=== PATIENT | female | born 1950 | race Caucasian/White ===

== ENCOUNTER 2024-02-25 09:53 | Outpatient (CLI) | payer MEDICARE, SELFPAY ==
[2024-02-25 11:58] LABS: Creatinine Urine 50.3 mg/dL
[2024-02-25 11:59] LABS: Albumin Level 3.7 g/dL (3.5-5.1); Anion Gap 3 mmol/L (4-12); Blood Urea Nitrogen 28 mg/dL (7-17); Calcium 9.4 mg/dL (8.4-10.2); Carbon Dioxide 30 mmol/L (22-30); Chloride 105 mmol/L (98-107); Cholesterol 212 mg/dL (0-200); Estimated Glomerular Filt Rate 35; Glucose 94 mg/dL (65-110); HDL Direct 53 mg/dL; Phosphorus 3.3 mg/dL (2.5-4.5); Potassium 4.6 mmol/L (3.4-5.0); Sodium 138 mmol/L (137-145); Triglycerides 103 mg/dL (<150); Uric Acid 7.5 mg/dL (2.5-7.5)
[2024-02-25 12:10] LABS: LDL Cholesterol Direct 111 mg/dL
[2024-02-25 12:14] LABS: Total Protein Urine Random 444 mg/dL; Ur Ttl Prot Creatinine Ratio 8.83 mg/mg (0-0.20)
[2024-02-25 12:28] LABS: Vitamin D 25 Hydroxy 25.2 ng/mL
[2024-02-25 14:01] LABS: Hemoglobin A1C 6.4 % (<5.7)
[2024-02-25 14:38] LABS: Basophils Absolute Auto 0.1 K/mm3 (0.0-0.1); Basophils Percent Auto 0.9 % (0.2-1.2); Eosinophils Absolute Auto 0.2 K/mm3 (0-0.3); Eosinophils Percent Auto 3.1 % (0-4.4); Hematocrit 36.5 % (37.0-47.0); Hemoglobin 11.7 g/dL (12.0-15.0); Immature Granulocyte Absolute 0.02 K/mm3 (0.00-0.031); Immature Granulocyte Percent A 0.3 % (0-0.5); Lymphocytes Absolute Auto 1.69 K/mm3 (0.9-3.2); Lymphocytes Percent Auto 22.8 % (18.3-44.2); Mean Corpuscular HGB Conc 32.1 g/dl (32-36); Mean Corpuscular Hemoglobin 28.7 pg (26-34); Mean Corpuscular Volume 89.5 fl (80-100); Mean Platelet Volume 10.9 fl (7.4-10.4); Monocytes Absolute Auto 0.6 K/mm3 (0.1-0.6); Monocytes Percent Auto 8.1 % (2.6-8.5); Neutrophils Absolute Auto 4.8 K/mm3 (1.3-6.7); Neutrophils Percent Auto 64.8 % (45.5-73.1); Platelet Count Result 275 k/mm3 (150-375); Red Blood Count 4.08 M/mm3 (4.2-5.4); Red Cell Distribution Width 13.1 % (11.5-14.5); White Blood Count 7.4 K/mm3 (4.5-10.0)
[2024-02-26 09:13] LABS: Parathyroid Intact 69.2 pg/mL (14.5-75.2)
[2024-02-26 12:12] LABS: Add Urine Microscopic? YES; Appearance Urine Clear (Clear); Bacteria Urine None Seen /hpf; Bilirubin Urine Negative (Negative); Blood Urine 2+ (Negative); Color Urine Yellow (Yellow); Glucose Urine UA Negative (Negative); Ketones Urine Negative (Negative); Leukocyte Esterase Ur Negative LEU/UL (Negative); Nitrate Urine Negative (Negative); Non Pathogenic Casts 0-2; Protein Urine 3+ mg/dL (Negative); RBC Urine 0-2 /hpf (0-2); Specific Grav Ur 1.011 (1.001-1.035); Squamous Epithelial Cell Urine None Seen /hpf (Few); Urobilinogen Urine 0.2 mg/dL (<2.0); WBC Urine 0-5 /hpf (0-3)
== END 2024-02-25 09:54 | disposition home or self-care (01) ==
PROVIDERS: PCP Internal Medicine
DX: I12.9 Hypertensive chronic kidney disease with stage 1 through stage 4 chronic kidney disease, or unspecified chronic kidney disease (principal); E11.22 Type 2 diabetes mellitus with diabetic chronic kidney disease; N18.30 Chronic kidney disease, stage 3 unspecified; E11.65 Type 2 diabetes mellitus with hyperglycemia; R60.9 Edema, unspecified; E55.9 Vitamin D deficiency, unspecified
CPT/HCPCS: 36415; 80061; 80069; 81001; 82306; 82570; 83036; 83970; 84156; 84550; 85025

== ENCOUNTER 2024-06-03 10:53 | Outpatient (CLI) | payer MEDICARE, SELFPAY ==
--- OUTSIDE RECORDS SUMMARY | 2024-06-03 11:58 | XMS_ITS | Encounter Summary ---
Author Organization [facility] Address [address] [place] [address] Care Team Providers Care Pool Cleaner Name Role Phone Humble Han MD Primary Care Provider [phone] Encounter Details Date Type Department Care Team (Latest Contact Info) Description 01/01/1999 [facility] Swelling of limb (Primary Dx) Social History Tobacco Use Types Packs/Day Years Used Date Smoking Tobacco: Never Assessed Comments Unknown Sex and Gender Information Value Date Recorded Sex Assigned at Not on file Legal Sex Female 3:41 AM SPOT WELDER Gender Identity Not on file Sexual Orientation Not on file documented as of this encounter Plan of Treatment Not on file documented as of this encounter Visit Diagnoses Diagnosis Swelling of limb- Primary documented in this encounter Care Teams Pool Cleaner Relationship Specialty Start Date End Date Humble Han MD [address] [place] [address] [address] [place] [id number] PCP - General Family Practice 02/26/12 documented as of this encounter
--- OUTSIDE RECORDS SUMMARY | 2024-06-03 11:58 | XMS_ITS ---
Author Organization [facility] Address [address] [place] [address] Care Team Providers Care Health Aide Name Role Phone TatoOlga beaulieujeremy Lopez [phone] MEDICATIONS Medication SIG (Take, Route, Frequency, Duration) Notes Start Date End Date Status Vitamin D (Ergocalciferol) 1.25 MG (04258 UT) TAKE 1 CAPSULE BY MOUTH EVERY 2 WEEKS 90 DAYS for 90 days 05/30/2024 Active Encounters Encounter Location Date Provider Diagnosis [facility] [place] [facility] [address] [place] [address] 03/01/2024 Hodajeremy Godwin PLAN OF TREATMENT Medication Medication Name Sig Start Date Stop Date Notes Vitamin D (Ergocalciferol) 1.25 MG (52659 UT) TAKE 1 CAPSULE BY MOUTH EVERY 2 WEEKS 90 DAYS for 90 days 05/30/2024 Next Appt Details Provider Name:Hoda canchola, 06/07/2024 03:45:00 PM, [address] [facility] [address], [address], Progress Notes * MIGUEL DUNNEDOB:1950 (73 yo F)Acc No.[id number]:03/01/2024 Patient: JEANIE DUNN :1950 Age:73 Y Sex:Female Address:[address] [place] [address], [address] * Refills Refill Vitamin D (Ergocalciferol) Capsule, 1.25 MG (13039 UT), 6 Capsule, TAKE 1 CAPSULE BY MOUTH EVERY 2 WEEKS 90 DAYS, 90 days, Refills=0 * * Date:
--- OUTSIDE RECORDS SUMMARY | 2024-06-03 11:58 | XMS_ITS | Encounter Summary ---
Author Organization [facility] Address [address] [place] [address] Care Team Providers Care Spike Machine Operator Name Role Phone Humble Han MD Primary Care Provider [phone] Encounter Details Date Type Department Care Team (Late st Contact Info) Description 03/25/1998 Outpatient [facility] Primary Care - [place] [address] [place] [address] Moises Martínez, DO * Social History Tobacco Use Types Packs/Day Years Used Date Smoking Tobacco: Never Assessed Comments Unknown Sex and Gender Information Value Date Recorded Sex Assigned at Not on file Legal Sex Female 3:41 AM FISH TRAPPER Gender Identity Not on file Sexual Orientation Not on file documented as of this encounter Plan of Treatment Not on file documented as of this encounter Visit Diagnoses Not on filedocumented in this encounter Care Teams Spike Machine Operator Relationship Specialty Start Date End Date Humble Han MD [address] [place] [address] PCP - General Family Practice 02/26/12 documented as of this encounter
--- OUTSIDE RECORDS SUMMARY | 2024-06-03 11:58 | XMS_ITS | Encounter Summary ---
Author Organization [facility] Address [address] [place] [address] Care Team Providers Care Bi Technical Lead Name Role Phone Humble Han MD Primary Care Provider [phone] Encounter Details Date Type Department Care Team (Late st Contact Info) Description 02/23/1999 Outpatient Historical [facility] Primary Care - [place] [address] [place] [address] David Edgar, NO ADDRESS ON FILE Social History Tobacco Use Types Packs/Day Years Used Date Smoking Tobacco: Never Assessed Comments Unknown Sex and Gender Information Value Date Recorded Sex Assigned at Not on file Legal Sex Female 3: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
--- OUTSIDE RECORDS SUMMARY | 2024-06-03 11:58 | XMS_ITS | Encounter Summary ---
Author Organization [facility] Address [address] [place] [address] Care Team Providers Care Contract Management Specialist Name Role Phone Humble Han MD Primary Care Provider [phone] Encounter Details Date Type Department Care Team (Late st Contact Info) Description 03/28/1998 Outpatient Historical [facility] Primary Care - [place] [address] [place] [address] David Edgar, NO ADDRESS ON FILE Social History Tobacco Use Types Packs/Day Years Used Date Smoking Tobacco: Never Assessed Comments Unknown Sex and Gender Information Value Date Recorded Sex Assigned at Not on file Legal Sex Female 3:41 AM PUNCHBOARD 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
--- OUTSIDE RECORDS SUMMARY | 2024-06-03 11:58 | XMS_ITS | Encounter Summary ---
Author Organization [facility] Address [address] [place] [address] Care Team Providers Care Machine Tool Operator Name Role Phone Humble Han MD Primary Care Provider [phone] Encounter Details Date Type Department Care Team (Late st Contact Info) Description 01/01/[address] [facility] Primary Care - [place] [address] [place] [address] David Edgar, NO ADDRESS ON FILE Social History Tobacco Use Types Packs/Day Years Used Date Smoking Tobacco: Never Assessed Comments Unknown Sex and Gender Information Value Date Recorded Sex Assigned at Not on file Legal Sex Female 3:41 AM PICKER / PACKER Gender Identity Not on file Sexual Orientation Not on file documented as of this encounter Plan of Treatment Not on file documented as of this encounter Visit Diagnoses Not on filedocumented in this encounter Care Teams Machine Tool Operator Relationship Specialty Start Date End Date Humble Han MD [address] [place] [address] PCP - General Family Practice 02/26/12 documented as of this encounter
--- OUTSIDE RECORDS SUMMARY | 2024-06-03 11:58 | XMS_ITS | Encounter Summary ---
Author Organization [facility] Address [address] [place] [address] Care Team Providers Care Casting Machine Service Operator Name Role Phone Humble Han MD Primary Care Provider [phone] Encounter Details Date Type Department Care Team (Late st Contact Info) Description 04/11/1998 Outpatient Historical [facility] Primary Care - [place] [address] [place] [address] David Edgar, NO ADDRESS ON FILE Social History Tobacco Use Types Packs/Day Years Used Date Smoking Tobacco: Never Assessed Comments Unknown Sex and Gender Information Value Date Recorded Sex Assigned at Not on file Legal Sex Female 3:41 AM MARINE EQUIPMENT 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
--- OUTSIDE RECORDS SUMMARY | 2024-06-03 11:58 | XMS_ITS | Encounter Summary ---
Author Organization [facility] Address [address] [place] [address] Care Team Providers Care Wet Pour Mixer Name Role Phone Humble Han MD Primary Care Provider [phone] Encounter Details Date Type Department Care Team (Late st Contact Info) Description 01/05/1999 Outpatient Historical [facility] Primary Care - [place] [address] [place] [address] David Edgar, NO ADDRESS ON FILE Social History Tobacco Use Types Packs/Day Years Used Date Smoking Tobacco: Never Assessed Comments Unknown Sex and Gender Information Value Date Recorded Sex Assigned at Not on file Legal Sex Female 3:41 AM AIR FILLER Gender Identity Not on file Sexual Orientation Not on file documented as of this encounter Plan of Treatment Not on file documented as of this encounter Visit Diagnoses Not on filedocumented in this encounter Care Teams Wet Pour Mixer Relationship Specialty Start Date End Date Humble Han MD [address] [place] [address] PCP - General Family Practice 02/26/12 documented as of this encounter
--- OUTSIDE RECORDS SUMMARY | 2024-06-03 11:58 | XMS_ITS | Encounter Summary ---
Author Organization [facility] Address [address] [place] [address] Care Team Providers Care Core Filer Name Role Phone Humble Han MD Primary Care Provider [phone] Encounter Details Date Type Department Care Team (Late st Contact Info) Description 02/15/1999 Outpatient Historical [facility] Primary Care - [place] [address] [place] [address] David Edgar, NO ADDRESS ON FILE Social History Tobacco Use Types Packs/Day Years Used Date Smoking Tobacco: Never Assessed Comments Unknown Sex and Gender Information Value Date Recorded Sex Assigned at Not on file Legal Sex Female 3:41 AM TDP DISPLAYS ANALYST Gender Identity Not on file Sexual Orientation Not on file documented as of this encounter Plan of Treatment Not on file documented as of this encounter Visit Diagnoses Not on filedocumented in this encounter Care Teams Core Filer Relationship Specialty Start Date End Date Humble Han MD [address] [place] [address] PCP - General Family Practice 02/26/12 documented as of this encounter
--- OUTSIDE RECORDS SUMMARY | 2024-06-03 11:58 | XMS_ITS | Encounter Summary ---
Author Organization [facility] Address [address] [place] [address] Care Team Providers Care Medical Equipment Sales Name Role Phone Humble Han MD Primary Care Provider [phone] Encounter Details Date Type Department Care Team (Late st Contact Info) Description 06/23/1998 Outpatient Historical [facility] Primary Care - [place] [address] [place] [address] David Edgar, NO ADDRESS ON FILE Social History Tobacco Use Types Packs/Day Years Used Date Smoking Tobacco: Never Assessed Comments Unknown Sex and Gender Information Value Date Recorded Sex Assigned at Not on file Legal Sex Female 3:41 AM PHARMACY OPERATIONS MANAGER Gender Identity Not on file Sexual Orientation Not on file documented as of this encounter Plan of Treatment Not on file documented as of this encounter Visit Diagnoses Not on filedocumented in this encounter Care Teams Medical Equipment Sales Relationship Specialty Start Date End Date Humble Han MD [address] [place] [address] PCP - General Family Practice 02/26/12 documented as of this encounter
--- OUTSIDE RECORDS SUMMARY | 2024-06-03 11:58 | XMS_ITS | Encounter Summary ---
Author Organization [facility] Address [address] [place] [address] Care Team Providers Care Corpsman Name Role Phone Humble Han MD Primary Care Provider [phone] Encounter Details Date Type Department Care Team (Late st Contact Info) Description 04/03/1998 Outpatient Historical [facility] Primary [place] - [place] [address] [place] [address] David Edgar, NO ADDRESS ON FILE Social History Tobacco Use Types Packs/Day Years Used Date Smoking Tobacco: Never Assessed Comments Unknown Sex and Gender Information Value Date Recorded Sex Assigned at Not on file Legal Sex Female 3:41 AM HELIX COIL WINDER Gender Identity Not on file Sexual Orientation Not on file documented as of this encounter Plan of Treatment Not on file documented as of this encounter Visit Diagnoses Not on filedocumented in this encounter Care Teams Corpsman Relationship Specialty Start Date End Date Humble Han MD [address] [place] [address] PCP - General Family Practice 02/26/12 documented as of this encounter
--- OUTSIDE RECORDS SUMMARY | 2024-06-03 11:59 | XMS_ITS | Encounter Summary ---
Author Organization [facility] Address [address] [place] [address] Care Team Providers Care Motion Picture Narrator Name Role Phone Humble Han MD Primary Care Provider [phone] Encounter Details Date Type Department Care Team (Late st Contact Info) Description 01/28/2002 Outpatient [facility] Primary Care - [place] [address] [place] [address] David Edgar, NO ADDRESS ON FILE Social History Tobacco Use Types Packs/Day Years Used Date Smoking Tobacco: Never Assessed Comments Unknown Sex and Gender Information Value Date Recorded Sex Assigned at Not on file Legal Sex Female 3:41 AM LEGAL EXECUTIVE ASSISTANT Gender Identity Not on file Sexual Orientation Not on file documented as of this encounter Plan of Treatment Not on file documented as of this encounter Visit Diagnoses Not on filedocumented in this encounter Care Teams Motion Picture Narrator Relationship Specialty Start Date End Date Humble Han MD [address] [place] [address] PCP - General Family Practice 02/26/12 documented as of this encounter
--- OUTSIDE RECORDS SUMMARY | 2024-06-03 11:59 | XMS_ITS | Encounter Summary ---
Author Organization [facility] Address [address] [place] [address] Care Team Providers Care Air Traffic Control Equipment Repairer Name Role Phone Humble Han MD Primary Care Provider [phone] Encounter Details Date Type Department Care Team (Late st Contact Info) Description 05/13/2001 Outpatient Historical [facility] Primary Care - [place] [address] [place] [address] David Edgar, NO ADDRESS ON FILE Social History Tobacco Use Types Packs/Day Years Used Date Smoking Tobacco: Never Assessed Comments Unknown Sex and Gender Information Value Date Recorded Sex Assigned at Not on file Legal Sex Female 3:41 AM SUSTAINABILITY MANAGER Gender Identity Not on file Sexual Orientation Not on file documented as of this encounter Plan of Treatment Not on file documented as of this encounter Visit Diagnoses Not on filedocumented in this encounter Care Teams Air Traffic Control Equipment Repairer Relationship Specialty Start Date End Date Humble Han MD [address] [place] [address] PCP - General Family Practice 02/26/12 documented as of this encounter
--- OUTSIDE RECORDS SUMMARY | 2024-06-03 11:59 | XMS_ITS | Encounter Summary ---
Author Organization [facility] Address [address] [place] [address] Care Team Providers Care Semiconductor Processing Group Leader Name Role Phone Humble Han MD Primary Care Provider [phone] Encounter Details Date Type Department Care Team (Late st Contact Info) Description 01/11/2002 Outpatient Historical [facility] Primary Care - [place] [address] [place] [address] David Edgar, NO ADDRESS ON FILE Social History Tobacco Use Types Packs/Day Years Used Date Smoking Tobacco: Never Assessed Comments Unknown Sex and Gender Information Value Date Recorded Sex Assigned at Not on file Legal Sex Female 3: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
--- OUTSIDE RECORDS SUMMARY | 2024-06-03 11:59 | XMS_ITS | Encounter Summary ---
Author Organization [facility] Address [address] [place] [address] Care Team Providers Care Engineering Psychologist Name Role Phone Humble Han MD Primary Care Provider [phone] Encounter Details Date Type Department Care Team (Late st Contact Info) Description 10/28/2003 Outpatient Historical [facility] Primary Care - [place] [address] [place] [address] David Edgar DO NO ADDRESS ON FILE Social History Tobacco Use Types Packs/Day Years Used Date Smoking Tobacco: Never Assessed Comments Unknown Sex and Gender Information Value Date Recorded Sex Assigned at Not on file Legal Sex Female 3:41 AM VP GLOBAL MARKETING [employer]IONS Gender Identity Not on file Sexual Orientation Not on file documented as of this encounter Plan of Treatment Not on file documented as of this encounter Visit Diagnoses Not on filedocumented in this encounter Care Teams Engineering Psychologist Relationship Specialty Start Date End Date Humble Han MD [address] [place] [address] PCP - General Family Practice 02/26/12 documented as of this encounter
--- OUTSIDE RECORDS SUMMARY | 2024-06-03 11:59 | XMS_ITS | Encounter Summary ---
Author Organization [facility] Address [address] [place] [address] Care Team Providers Care Contract Negotiation Specialist Name Role Phone Humble Han MD Primary Care Provider [phone] Encounter Details Date Type Department Care Team (Latest Contact Info) Description 07/17/2004 [facility] FILE SCREENING MAMM-MAILG NEOPL-OTHER (Primary Dx) Social History Tobacco Use Types Packs/Day Years Used Date Smoking Tobacco: Never Assessed Comments Unknown Sex and Gender Information Value Date Recorded Sex Assigned at Not on file Legal Sex Female 3:41 AM DIRECTOR OF RESTAURANT OPERATIONS Gender Identity Not on file Sexual Orientation Not on file documented as of this encounter Plan of Treatment Not on file documented as of this encounter Visit Diagnoses Diagnosis Other screening mammogram- Primary documented in this encounter Care Teams Contract Negotiation Specialist Relationship Specialty Start Date End Date Humble Han MD [address] [place] [address] [address] [place] [address] PCP - General Family Practice 02/26/12 documented as of this encounter
--- OUTSIDE RECORDS SUMMARY | 2024-06-03 11:59 | XMS_ITS | Encounter Summary ---
Author Organization [facility] Address [address] [place] [address] Care Team Providers Care Real Estate Investment Analyst Name Role Phone Humble Han MD Primary Care Provider [phone] Encounter Details Date Type Department Care Team (Latest Contact Info) Description 06/09/2007 Outpatient Historical HIS IMG-LAB [facility] David Grubbs DO NO ADDRESS ON FILE Other Screening Mammogram Social History Tobacco Use Types Packs/Day Years Used Date Smoking Tobacco: Never Assessed Comments No Sex and Gender Information Value Date Recorded Sex Assigned at Not on file Legal Sex Female 3:41 AM SCHOOL GUARD Gender Identity Not on file Sexual Orientation Not on file documented as of this encounter Plan of Treatment Not on file documented as of this encounter Procedures Procedure Name Priority Date/Time Associated Diagnosis Comments MAMMO SCREEN BILAT W OR WO CAD Routine 06/09/2007 9:03 AM CDT documented in this encounter Results * MAMMO DIGITAL SCREEN BILAT (06/09/2007 9:03 AM CDT) Anatomical Region Laterality Modality Breast Bilateral Other 06/09/2007 9:03 AM CDT Narrative 06/11/2007 7:28 AM CDT [address] [address] Admit Date: 06/09/2007 JEANIE DUNN Sex: F Admit Prov: DAVID GRUBBS Date: 1950 Primary Care Prov: DAVID GRUBBS CMRN: [id number] [id number] [facility] SERVICES Ordering Prov: DAVID GRUBBS Accession Number: [id number] Interpretation BILATERAL FULL FIELD DIGITAL SCREENING MAMMOGRAM WITH CAD. Date: 06/09/07 History: Routine Screening. Technique: Full field digital craniocaudal and mediolateral oblique projections of both breasts were obtained. Computer aided diagnosis was performed. Comparison: 06/2004 Breast Parenchymal Composition: Scattered fibroglandular densities. Findings: No suspicious mass, suspicious microcalcifications, or architectural distortion in either breast is identified. Since the prior study, there has been no significant interval change. The computer aided diagnosis detects no significant abnormality. Overall Assessment: BI-RADS category 1: Negative. Recommendation: Annual mammography is recommended. Assessment BIRADS: 1-Negative Recommendation: Normal interval follow-up Dictated by: SARA HIGGINS Electronically signed by: SARA HIGGINS 06/11/2007 07:28 Transcribed: 06/10/2007 16:05 AMK Procedure Note Sara Higgins - 06/11/2007 [facility] [address] [place], [place] [address] Admit Date: 06/09/2007 DUNNMELITAJEANIE Sex: F Admit Prov: DAVID GRUBBS Date: 1950 Primary Care Prov: DAVID GRUBBS CMRN: [id number] [facility] [id number] IMAGING SERVICES Ordering Prov: DAVID GRUBBS Interpretation BILATERAL FULL FIELD DIGITAL SCREENING MAMMOGRAM WITH CAD. Date: 06/09/07 History: Routine Screening. Technique: Full field digital craniocaudal and mediolateral oblique projections of both breasts were obtained. Computer aided diagnosiswas performed. Comparison: 06/2004 Breast Parenchymal Composition: Scattered fibroglandular densities. Findings: No suspicious mass, suspicious microcalcifications, or architectural distortion in either breast is identified. Since theprior study, there has been no significant interval change. The computeraided diagnosis detects no significant abnormality. Overall Assessment: BI-RADS category 1: Negative. Recommendation: Annual mammography is recommended. Assessment BIRADS: 1-Negative Recommendation: Normal interval follow-up Dictated by: SARA HIGGINS Electronically signed by: SARA HIGGINS 06/11/2007 07:28 Transcribed: 06/10/2007 16:05 AMK us David Grubbs DO MAMMO ORDERABLES Final Resu lt documented in this encounter Visit Diagnoses Diagnosis Other screening mammogram documented in this encounter Care Teams Real Estate Investment Analyst Relationship Specialty Start Date End Date Humble Han MD [address] [place] [address] PCP - General Family Practice 02/26/12 documented as of this encounter
--- OUTSIDE RECORDS SUMMARY | 2024-06-03 11:59 | XMS_ITS | Encounter Summary ---
Author Organization [facility] Address [address] [place] [address] Care Team Providers Care Manager Database Administration Name Role Phone Humble Han MD Primary Care Provider [phone] Encounter Details Date Type Department Care Team (Late st Contact Info) Description 10/07/2001 Outpatient Historical [facility] [place] [address] [place] [address] David Edgar, NO ADDRESS ON FILE Social History Tobacco Use Types Packs/Day Years Used Date Smoking Tobacco: Never Assessed Comments Unknown Sex and Gender Information Value Date Recorded Sex Assigned at Not on file Legal Sex Female 3:41 AM REELING OPERATOR Gender Identity Not on file Sexual Orientation Not on file documented as of this encounter Plan of Treatment Not on file documented as of this encounter Visit Diagnoses Not on filedocumented in this encounter Care Teams Manager Database Administration Relationship Specialty Start Date End Date Humble Han MD [address] [place] [address] PCP - General Family Practice 02/26/12 documented as of this encounter
--- OUTSIDE RECORDS SUMMARY | 2024-06-03 11:59 | XMS_ITS | Encounter Summary ---
Author Organization [facility] Address [address] [place] [address] Care Team Providers Care Computer Programming Supervisor Name Role Phone Humble Han MD Primary Care Provider [phone] Encounter Details Date Type Department Care Team (Latest Contact Info) Description 11/29/2002 [facility] FILE JOINT PAIN-L/LEG (Primary Dx) Social History Tobacco Use Types Packs/Day Years Used Date Smoking Tobacco: Never Assessed Comments Unknown Sex and Gender Information Value Date Recorded Sex Assigned at Not on file Legal Sex Female 3:41 AM QUALITY CONTROL LAB TECH Gender Identity Not on file Sexual Orientation Not on file documented as of this encounter Plan of Treatment Not on file documented as of this encounter Visit Diagnoses Diagnosis Pain in joint, lower leg- Primary documented in this encounter Care Teams Computer Programming Supervisor Relationship Specialty Start Date End Date Humble Han MD [address] [place] [address] [address] [place] [address] PCP - General Family Practice 02/26/12 documented as of this encounter
--- OUTSIDE RECORDS SUMMARY | 2024-06-03 11:59 | XMS_ITS | Clinical Summary ---
Author Organization [facility] Address [address] [place] [address] Phone Care Team Providers Care Racing Mechanic Name Role Phone Humble Han MD Primary Care Provider [phone] Allergies Active Allergy Reactions Criticality Noted Date Comments Sulfa (Sulfonamide Antibiotics) Unknown 05/18 Medications esomeprazole (NEXIUM) 40 mg Oral CpDR Take 40 mg by mouth daily. Active multivitamin (DAILY-SHAKA) Oral tablet Take 1 Tab by mouth daily. Active calcium carbonate (CALTRATE) 600 mg (1,500 mg) Oral Tab Take 600 mg by mouth 2 times daily. Active fluticasone (FLONASE) 50 mcg/spray Both Nostril SpSn Administer 2 Sprays in each nostril daily. 16 Gram 3 3 Active allopurinol (ZYLOPRIM) 300 mg Oral tablet Take 1 Tab by mouth daily. 90 Tab 1 3 Active dicyclomine (BENTYL) 20 mg Oral tablet 3 Active azithromycin (ZITHROMAX) 250 mg Oral tablet Take 2 tabs the first day and 1 tab days 2-5 1 Package 0 3 Active mometasone-form oterol (DULERA) 200-5 mcg/actuation inhaler Take 1 Puff by inhalation 2 times daily. 13 Gram 3 3 Active PARoxetine HCl (PAXIL) 10 mg tablet TAKE ONE TABLET BY MOUTH DAILY 90 Tab 1 4 Active ramipril (ALTACE) 5 mg capsule TAKE 3 CAPSULES DAILY 270 Cap 1 4 Active cetirizine (ZYRTEC) 10 mg tablet TAKE ONE TABLET BY MOUTH DAILY 90 Tab 1 4 Active PROAIR HFA 90 mcg/actuation inhaler INHALE TWO PUFFS BY MOUTH EVERY SIX HOURS NEEDED FOR WHEEZING 18 Gram 5 5 Active Active Problems Problem Noted Date Diagnosed Date BRUCE (stress urinary incontinence, female) 2010 Gouty arthropathy 09/22/2008 Overview (03/14/2010): Updating IMO/ICD9 Code and Description H/O: hysterectomy 09/22/2008 Dyslipidemia 09/22/2008 Essential hypertension, benign Extrinsic asthma, unspecified Depressive disorder, not elsewhere classified Immunizations Immunization Administration Dates Next Due Influenza Seasonal Unspecified Formulation IM Family History Medical History Relation Name Comments Breast Cancer Neg Hx Cancer Neg Hx Ovarian Cancer Neg Hx Social History Tobacco Use Types Packs/Day Years Used Date Smoking Tobacco: Never Smokeless Tobacco: Never Alcohol Use Standard Drinks/Week Comments Yes 0 (1 standard drink = 0.6 oz pur e alcohol) occasionally Comments No Sex and Gender Information Value Date Recorded Sex Assigned at Not on file Legal Sex Female 3:41 AM MULTIMEDIA EDUCATIONAL SPECIALIST Gender Identity Not on file Sexual Orientation Not on file Occupation Industry Job Start Date Job End Date Not on file Not on file Not on file Not on file Last Filed Vital Signs Vital Sign Reading Time Taken Comments Blood Pressure 130/86 11/28/2012 9:28 AM CDT Pulse 74 11/28/2012 9:28 AM CDT Temperature 36.3 C (97.4 F) 11/28/2012 9:28 AM CDT Respiratory Rate 16 02/26/2012 9:03 AM MULTIMEDIA EDUCATIONAL SPECIALIST Oxygen Saturation 95% 11/28/2012 9:28 AM CDT Inhaled Oxygen Concentration - - Weight 94.2 kg (207 lb 9.6 oz) 11/28/2012 9:28 A M CDT Height 167.6 cm (5' 6 ) 11/28/2012 9:28 AM CDT Body Mass Index 33.51 11/28/2012 9:28 AM CDT Plan of Treatment Health Maintenance Due Date Last Done Comments DTAP/TDAP/TD VACCINES (1 - Tdap) 07/20/1967 COLORECTAL SCREENING 1993 Colorectal Cancer Screening 1993 FIT-DNA Q 3 years 1993 FIT/FOBT Q 1 year 1993 Flex Sig/CT Colonography Q 5 years 1993 PNEUMOCOCCAL VACCINE 50+ YEARS (1 of 1 - PCV) 07/19/18 99 ZOSTER VACCINE (1 of 2) 1998 OSTEOPOROSIS SCREENING 2013 RSV VACCINE (60+ or ) (1 - 1-dose 75+ series) 07/20/2023 INFLUENZA VACCINE (#1) 2023 12/15/2012 Medical Devices Implanted Type Area Manager Consumer Insights Device Identifier Shelf Expiration Date Model / Serial / Lot Log [id number] - Bladder Slings And Tapes - 1 - Gynecare Tvt Exact Tvtrl Implanted:Qty: 1 on 02/13/2011 at [facility] Sling Bilateral: Bladder [employer] 07/18/2011 TVTRL / / [id number] Advance Directives For more information, please contact: [phone] * Full Code (Latest Code Status on File) Date Activated Date Inactivated Comments 02/13/2011 1:41 PM 02/13/2011 8:04 PM * Full Code Date Activated Date Inactivated Comments 02/13/2011 11:18 AM 02/13/2011 1:41 PM Care Teams Racing Mechanic Relationship Specialty Start Date End Date Humble Han MD [address] [place] [address] PCP - General Family Practice 02/26/12
--- OUTSIDE RECORDS SUMMARY | 2024-06-03 11:59 | XMS_ITS | Encounter Summary ---
Author Organization [facility] Address [address] [place] [address] Care Team Providers Care Multi Craft Maintenance Technician Name Role Phone Humble Han MD Primary Care Provider [phone] Encounter Details Date Type Department Care Team (Late st Contact Info) Description 03/19/2004 Outpatient Historical [facility] Primary Care - [place] [address] [place] [address] Aurda Burgos MD NO ADDRESS ON FILE Social History Tobacco Use Types Packs/Day Years Used Date Smoking Tobacco: Never Assessed Comments Unknown Sex and Gender Information Value Date Recorded Sex Assigned at Not on file Legal Sex Female 3:41 AM COMMUNITY HEALTH PLANNING DIRECTOR Gender Identity Not on file Sexual Orientation Not on file documented as of this encounter Plan of Treatment Not on file documented as of this encounter Visit Diagnoses Not on filedocumented in this encounter Care Teams Multi Craft Maintenance Technician Relationship Specialty Start Date End Date Humble Han MD [address] [place] [address] PCP - General Family Practice 02/26/12 documented as of this encounter
--- OUTSIDE RECORDS SUMMARY | 2024-06-03 11:59 | XMS_ITS | Encounter Summary ---
Author Organization [facility] Address [address] [place] [address] Care Team Providers Care Hooker Off Name Role Phone Humble Han MD Primary Care Provider [phone] Encounter Details Date Type Department Care Team (Late st Contact Info) Description 06/11/2005 Outpatient Historical [facility] Primary Care - [place] [address] [place] [address] David Edgar, NO ADDRESS ON FILE Social History Tobacco Use Types Packs/Day Years Used Date Smoking Tobacco: Never Assessed Comments Unknown Sex and Gender Information Value Date Recorded Sex Assigned at Not on file Legal Sex Female 3:41 AM MERCHANDISER SEASONAL Gender Identity Not on file Sexual Orientation Not on file documented as of this encounter Plan of Treatment Not on file documented as of this encounter Visit Diagnoses Not on filedocumented in this encounter Care Teams Hooker Off Relationship Specialty Start Date End Date Humble Han MD [address] [place] [address] PCP - General Family Practice 02/26/12 documented as of this encounter
--- OUTSIDE RECORDS SUMMARY | 2024-06-03 11:59 | XMS_ITS | Encounter Summary ---
Author Organization [facility] Address [address] [place] [address] Care Team Providers Care Channel Specialist Name Role Phone Humble Han MD Primary Care Provider [phone] Encounter Details Date Type Department Care Team (Late st Contact Info) Description 07/17/[address] [facility] Primary Care - [place] [address] [place] [address] David Edgar, NO ADDRESS ON FILE Social History Tobacco Use Types Packs/Day Years Used Date Smoking Tobacco: Never Assessed Comments Unknown Sex and Gender Information Value Date Recorded Sex Assigned at Not on file Legal Sex Female 3:41 AM TRIAGE CLINICIAN Gender Identity Not on file Sexual Orientation Not on file documented as of this encounter Plan of Treatment Not on file documented as of this encounter Visit Diagnoses Not on filedocumented in this encounter Care Teams Channel Specialist Relationship Specialty Start Date End Date Humble Han MD [address] [place] [address] PCP - General Family Practice 02/26/12 documented as of this encounter
--- OUTSIDE RECORDS SUMMARY | 2024-06-03 11:59 | XMS_ITS | Encounter Summary ---
Author Organization [facility] Address [address] [place] [address] Care Team Providers Care Pug Machine Operator Name Role Phone Humble Han MD Primary Care Provider [phone] Encounter Details Date Type Department Care Team (Latest Contact Info) Description 07/31/2004 Outpatient Historical [facility] EVEL[facility] Edgar, David Garay, DO NO ADDRESS ON FILE UNSP ABNORMAL MAMMOGRAM (Primary Dx) Social History Tobacco Use Types Packs/Day Years Used Date Smoking Tobacco: Never Assessed Comments Unknown Sex and Gender Information Value Date Recorded Sex Assigned at Not on file Legal Sex Female 3:41 AM PHARMACY INTERN Gender Identity Not on file Sexual Orientation Not on file documented as of this encounter Plan of Treatment Not on file documented as of this encounter Visit Diagnoses Diagnosis Abnormal mammogram, unspecified- Primary documented in this encounter Care Teams Pug Machine Operator Relationship Specialty Start Date End Date Humble Han MD [address] [place] [address] [address] [place] [address] PCP - General Family Practice 02/26/12 documented as of this encounter
--- OUTSIDE RECORDS SUMMARY | 2024-06-03 11:59 | XMS_ITS | Encounter Summary ---
Author Organization [facility] Address [address] [place] [address] Care Team Providers Care Basketball Assembler Name Role Phone Humble Han MD Primary Care Provider [phone] Encounter Details Date Type Department Care Team (Late st Contact Info) Description 10/10/2003 Outpatient Historical [facility] Primary Care - [place] [address] [place] [address] David Edgar, NO ADDRESS ON FILE Social History Tobacco Use Types Packs/Day Years Used Date Smoking Tobacco: Never Assessed Comments Unknown Sex and Gender Information Value Date Recorded Sex Assigned at Not on file Legal Sex Female 3:41 AM EVS MANAGER Gender Identity Not on file Sexual Orientation Not on file documented as of this encounter Plan of Treatment Not on file documented as of this encounter Visit Diagnoses Not on filedocumented in this encounter Care Teams Basketball Assembler Relationship Specialty Start Date End Date Humble Han MD [address] [place] [address] PCP - General Family Practice 02/26/12 documented as of this encounter
--- OUTSIDE RECORDS SUMMARY | 2024-06-03 11:59 | XMS_ITS ---
Author Organization [facility] Address [address] [place] [address] Care Team Providers Care Health Record Technician Name Role Phone TatoOlgaSuman John [phone] PROBLEMS Problem Type ICD Code Onset Dates Problem Status W/U Status Risk SNOMED Code Notes Problem Chronic kidney disease, stage 3a (N18.31) Active confirmed Chronic kidney disease stage 3A (disorder) (387830599) Problem Proteinuria, unspecified (R80.9) Active confirmed Proteinuria (09760140) Problem Type 2 diabetes mellitus without complication, unspecified whether jail insulin use (E11.9) Active confirmed Type II diabete s mellitus without complication (824825441) Encounters Encounter Location Date Provider Diagnosis [facility] [address] [place] [address] 03/01/2024 Suman Jauregui Chronic kidney disease, stage 3a N18.31 ; Vitamin D deficiency, unspecified E55.9 ; Type 2 diabetes mellitus without complication, unspecified whether jail insulin use E11.9 and Proteinuria, unspecified R80.9 ASSESSMENTS Encounter Date Diagnosis Assessment Notes Treatment Notes Treatment Clinical Notes Section Notes 03/01/2024 Chronic kidney disease, stage 3a (ICD-10 - N18.31) 03/01/2024 Vitamin D deficiency, unspecified (ICD-10 - E55.9) 03/01/2024 Type 2 diabetes mellitus without complication, unspecified whether jail insulin use (ICD-10 - E11.9) 03/01/2024 Proteinuria, unspecified (ICD-10 - R80.9) PLAN OF TREATMENT Next Appt Details Provider Name:Suman canchola, 06/07/2024 03:45:00 PM, [address] [facility], [place], [address], Progress Notes * MIGUEL DUNNEDOB:1950 (73 yo F)Acc No.[id number]:03/01/2024 Progress Notes Patient: JEANIE DUNN Provider: SUMAN JAUREGUI M.D :1950 Age:73 Y Sex:Female Date:03/01/2024 Address:[address] [place] [address] Subjective: * Chief Complaints: * * Medical History: Objective: Assessment: * Assessment: 1. Chronic kidney disease, stage 3a - N18.31 (Primary) 2. Vitamin D deficiency, unspecified - E55.9 3. Type 2 diabetes mellitus without complication, unspecified whether jail insulin use - E11.9 4. Proteinuria, unspecified - R80.9 Plan: * Treatment: * Billing Information: * Visit Code: * Procedure Codes: * Sign off status: Pending * Provider: SUMAN JAUREGUI M.D Date: 03/01/2024
--- OUTSIDE RECORDS SUMMARY | 2024-06-03 11:59 | XMS_ITS | Encounter Summary ---
Author Organization [facility] Address [address] [place] [address] Care Team Providers Care Senior Treasury Analyst Name Role Phone Humble Han MD Primary Care Provider [phone] Encounter Details Date Type Department Care Team (Late st Contact Info) Description 11/29/2002 Outpatient Historical [facility] Primary Care - [place] [address] [place] [address] David Edgar, NO ADDRESS ON FILE Social History Tobacco Use Types Packs/Day Years Used Date Smoking Tobacco: Never Assessed Comments Unknown Sex and Gender Information Value Date Recorded Sex Assigned at Not on file Legal Sex Female 3:41 AM VACUUM EXTRACTOR OPERATOR Gender Identity Not on file Sexual Orientation Not on file documented as of this encounter Plan of Treatment Not on file documented as of this encounter Visit Diagnoses Not on filedocumented in this encounter Care Teams Senior Treasury Analyst Relationship Specialty Start Date End Date Humble Han MD [address] [place] [address] PCP - General Family Practice 02/26/12 documented as of this encounter
--- OUTSIDE RECORDS SUMMARY | 2024-06-03 11:59 | XMS_ITS | Encounter Summary ---
Author Organization [facility] Address [address] [place] [address] Care Team Providers Care Industry Operations Investigator Name Role Phone Humble Han MD Primary Care Provider [phone] Encounter Details Date Type Department Care Team (Late st Contact Info) Description 10/30/2004 Outpatient Historical [facility] Primary Care - [place] [address] [place] [address] David Edgar, NO ADDRESS ON FILE Social History Tobacco Use Types Packs/Day Years Used Date Smoking Tobacco: Never Assessed Comments Unknown Sex and Gender Information Value Date Recorded Sex Assigned at Not on file Legal Sex Female 3:41 AM MERCHANT BANKER Gender Identity Not on file Sexual Orientation Not on file documented as of this encounter Plan of Treatment Not on file documented as of this encounter Visit Diagnoses Not on filedocumented in this encounter Care Teams Industry Operations Investigator Relationship Specialty Start Date End Date Humble Han MD [address] [place] [address] PCP - General Family Practice 02/26/12 documented as of this encounter
--- OUTSIDE RECORDS SUMMARY | 2024-06-03 11:59 | XMS_ITS | Encounter Summary ---
Author Organization [facility] Address [address] [place] [address] Care Team Providers Care Electric Pile Driver Operator Name Role Phone Humble Han MD Primary Care Provider [phone] Encounter Details Date Type Department Care Team (Late st Contact Info) Description 03/30/2003 Outpatient [facility] Primary Care - [place] [address] [place] [address] Audra Burgos MD NO ADDRESS ON FILE Social History Tobacco Use Types Packs/Day Years Used Date Smoking Tobacco: Never Assessed Comments Unknown Sex and Gender Information Value Date Recorded Sex Assigned at Not on file Legal Sex Female 3:41 AM CLINICAL PSYCHOLOGY TEACHER Gender Identity Not on file Sexual Orientation Not on file documented as of this encounter Plan of Treatment Not on file documented as of this encounter Visit Diagnoses Not on filedocumented in this encounter Care Teams Electric Pile Driver Operator Relationship Specialty Start Date End Date Humble Han MD [address] [place] [address] PCP - General Family Practice 02/26/12 documented as of this encounter
--- OUTSIDE RECORDS SUMMARY | 2024-06-03 11:59 | XMS_ITS | Encounter Summary ---
Author Organization [facility] Address [address] [place] [address] Care Team Providers Care Employee Relations Specialist Name Role Phone Humble Han MD Primary Care Provider [phone] Encounter Details Date Type Department Care Team (Latest Contact Info) Description 03/25/2006 [facility] ON FILE Other Screening Mammogram (Primary Dx) Social History Tobacco Use Types Packs/Day Years Used Date Smoking Tobacco: Never Assessed Comments Unknown Sex and Gender Information Value Date Recorded Sex Assigned at Not on file Legal Sex Female 3:41 AM SALES REPRESENTATIVE AIRCRAFT Gender Identity Not on file Sexual Orientation Not on file documented as of this encounter Plan of Treatment Not on file documented as of this encounter Visit Diagnoses Diagnosis Other screening mammogram- Primary documented in this encounter Care Teams Employee Relations Specialist Relationship Specialty Start Date End Date Humble Han MD [address] [place] [address] [address] [place] [address] PCP - General Family Practice 02/26/12 documented as of this encounter
--- OUTSIDE RECORDS SUMMARY | 2024-06-03 11:59 | XMS_ITS | Patient Health Record ---
Author Organization [facility] Address [address] [place] [address] Care Team Providers Care Camera Repair Technician Name Role Phone Hoda Godwin Unavailable [phone] REASON FOR REFERRAL No Information MEDICATIONS Medication SIG (Take, Route, Frequency, Duration) Notes Start Date End Date Status Esomeprazole Magnesium 40 MG TAKE 1 CAPSULE BY MOUTH EVERY DAY for 90 Active NexIUM 40 MG 1 capsule Orally Onc e a day for 90 days 07/01/2022 Active NexIUM 40 MG 1 capsule Orally Onc e a day for 90 day(s) 10/29/2021 Active Losartan Potassium 100 MG 1 tablet Orall y Once a day for 90 days 03/01/2024 Active Vitamin D (Ergocalciferol) 1.25 MG (01651 UT) TAKE 1 CAPSULE BY MOUTH EVERY 2 WEEKS 90 DAYS for 90 days Active PROBLEMS Problem Type ICD Code Onset Dates Problem Status W/U Status Risk SNOMED Code Notes Problem Secondary hyperparathyroid ism, not elsewhere classified (E21.1) Active confirmed Secondary hyperparathyroidism (16157094) Problem Vitamin D deficiency, unspecified (E55.9) Active confirmed Vitamin D defic iency (09619898) Problem 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 inflammatory 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) Active confirmed Hyperuricemi a without signs of inflammatory arthritis and tophaceous disease (061836492) Problem Essential (primary) hypertension (I10) Active confirmed Essential hypertension (58880517) Problem Chronic kidney disease, stage 2 (mild) (N18.2) Active confirmed Chronic kidne y disease stage 2 (094099198) Problem Edema, unspecified (R60.9) Active confirmed Edema (73795180) Problem Proteinuria, unspecified (R80.9) Active confirmed Proteinuria (08615652) Problem Type 2 diabetes mellitus without complication, unspecified whether usp insulin use (E11.9) Active confirmed Type II diabete s mellitus without complication (355517710) Problem Chronic kidney disease, stage 3 unspecified (N18.30) Active confirmed Chronic kidney disease stage 3 (disorder) (463154824) Problem Chronic kidney disease, stage 3a (N18.31) Active confirmed Chronic kidney disease stage 3A (disorder) (623458203) Encounters Encounter Location Date Provider Diagnosis [facility] [address] [place] [address] 07/28/2023 Hoda Tato Chronic kidney disease, stage 3 unspecified N18.30 ; Essential (primary) hypertension I10 and 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 inflammatory arthritis and tophaceous disease E79.0 [facility] [address] [place] [address] 11/03/2023 Hoda Tato Chronic kidney disease, stage 2 (mild) N18.2 ; Edema, unspecified R60.9 ; Vitamin D deficiency, unspecified E55.9 and Secondary hyperparathyroidism, not elsewhere classified E21.1 [facility] [address] [place] [address] 02/02/2024 Hoda Tato [facility] [address] [place] [address] 03/01/2024 Hoda Tato Chronic kidney disease, stage 3a N18.31 ; Vitamin D deficiency, unspecified E55.9 ; Type 2 diabetes mellitus without complication, unspecified whether local company intermodal truck driver insulin use E11.9 and Proteinuria, unspecified R80.9 [facility] [address] [place] [address] 04/05/2024 Hoda Tato [facility] [place] [facility] [address] [place] [address] 11/03/2023 Hoda Tato [facility] [place] [facility] [address] [place] [address] 03/01/2024 Hoda Tato [facility] [place] [facility] [address] [place] [address] 03/01/2024 Hoda Tato [facility] [address] [place] [address] 07/28/2023 Hoda Tato ASSESSMENTS Encounter Date Diagnosis Assessment Notes Treatment Notes Treatment Clinical Notes Section Notes 07/28/2023 Chronic kidney disease, stage 3 unspecified (ICD-10 - N18.30) 11/03/2023 Chronic kidney disease, stage 2 (mild) (ICD-10 - N18.2) 03/01/2024 Chronic kidney disease, stage 3a (ICD-10 - N18.31) 11/03/2023 Edema, unspecified (ICD-10 - R60.9) 03/01/2024 Vitamin D deficiency, unspecified (ICD-10 - E55.9) 07/28/2023 Essential (primary) hypertension (ICD-10 - I10) 07/28/2023 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 inflammatory arthritis and tophaceous disease (ICD-10 - E79.0) 11/03/2023 Vitamin D deficiency, unspecified (ICD-10 - E55.9) 03/01/2024 Type 2 diabetes mellitus without complication, unspecified whether local company intermodal truck driver insulin use (ICD-10 - E11.9) 03/01/2024 Proteinuria, unspecified (ICD-10 - R80.9) 11/03/2023 Secondary hyperparathyroidis m, not elsewhere classified (ICD-10 - E21.1) PLAN OF TREATMENT Next Appt Details Provider Name:Hoda canchola, 06/07/2024 03:45:00 PM, [address], [facility] [address], [place], [address],
--- OUTSIDE RECORDS SUMMARY | 2024-06-03 11:59 | XMS_ITS | Encounter Summary ---
Author Organization [facility] Address [address] [place] [address] Care Team Providers Care Painting Department Supervisor Name Role Phone Humble Han MD Primary Care Provider [phone] Encounter Details Date Type Department Care Team (Late st Contact Info) Description 05/06/2001 Outpatient Historical [facility] Primary Care - [place] [address] [place] [address] David Edgar, NO ADDRESS ON FILE Social History Tobacco Use Types Packs/Day Years Used Date Smoking Tobacco: Never Assessed Comments Unknown Sex and Gender Information Value Date Recorded Sex Assigned at Not on file Legal Sex Female 3:41 AM RETAIL SECURITY PROFESSIONAL Gender Identity Not on file Sexual Orientation Not on file documented as of this encounter Plan of Treatment Not on file documented as of this encounter Visit Diagnoses Not on filedocumented in this encounter Care Teams Painting Department Supervisor Relationship Specialty Start Date End Date Humble Han MD [address] [place] [address] PCP - General Family Practice 02/26/12 documented as of this encounter
--- OUTSIDE RECORDS SUMMARY | 2024-06-03 11:59 | XMS_ITS | Encounter Summary ---
Author Organization [facility] Address 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 Gender Identity Not on file Sexual Orientation Not on file documented as of this encounter Plan of Treatment Not on file documented as of this encounter Procedures Procedure Name Priority Date/Time Associated Diagnosis Comments TSH REFLEXIVE Routine 06/16/2007 9:15 AM CDT CBC WITH DIFFERENTIAL Routine 06/16/2007 9:15 AM CDT HEPATIC FUNCTION PANEL Routine 06/16/2007 9:15 AM CDT LIPID PANEL Routine 06/16/2007 9:15 AM CDT BASIC METABOLIC PANEL Routine 06/16/2007 9:15 AM CDT documented in this encounter Results * TSH WITH REFLEX FT4 (06/16/2007 9:15 AM CDT) TSH 1.70 0.27 - 4.20 uU/mL [facility] Blood specimen (specimen) 06/16/2007 9:15 AM CDT 06/16/2007 11:08 AM CDT David Edgar DO CHEMISTRY ORDERABLES Final Result [facility] [address] [place] [address] * CBC WITH DIFFERENTIAL (06/16/2007 9:15 AM CDT) RBC 4.50 3.90 - 4.90 M/uL [facility] MCHC 31.9 31.5 - 35.5 % [facility] MCV 90.7 82.0 - 99.0 fL [facility] PLATELETS 286 140 - 350 K/uL [facility] HEMOGLOBIN 13.0 11.8 - 14.8 g/dL [facility] RDW 13.0 11.5 - 14.5 % [facility] WBC 8.8 4.0 - 9.8 K/uL [facility] MCH 28.9 27.2 - 32.6 pg [facility] MPV 10.9 9.3 - 12.4 fL [facility] HEMATOCRIT 40.8 35.5 - 44.0 % [facility] RDW-STDEV 42.6 37.1 - 48.7 fL [facility] MONOCYTES 8 3 - 13 % [facility] MONOCYTE ABSOLUTE 0.67 0.10 - 1.30 K/uL [facility] NEUTROPHILS 60 45 - 70 % [facility] NEUTROPHIL ABSOLUTE 5.25 1.90 - 7.00 K/uL [facility] EOSINOPHILS 7 0 - 7 % [facility] EOSINOPHIL ABSOLUTE 0.58 0.00 - 0.70 K/uL [facility] LYMPHOCYTES 25 16 - 45 % [facility] LYMPHOCYTE ABSOLUTE 2.17 0.70 - 4.50 K/uL [facility] BASOPHILS 1 0 - 2 % [facility] BASOPHILS ABSOLUTE 0.08 0.00 - 0.20 K/uL [facility] Blood specimen (specimen) 06/16/2007 9:15 AM CDT 06/16/2007 11:08 AM CDT David Edgar DO HEMATOLOGY ORDERABLES Edite d Performing Organization Address City/[facility]/ZIP Co de Phone Number INTERFACE SYSTEM Refer to clinic/hospital department [facility] [address] [place] [address] * HEPATIC FUNCTION PANEL (06/16/2007 9:15 AM CDT) BILIRUBIN DIRECT 0.1 0.0 - 0.3 mg/dL [facility] TOTAL PROTEIN 7.2 6.3 - 8.6 g/dL [facility] ALT 13 0 - 31 U/L [facility] BILIRUBIN TOTAL 0.2 0.2 - 1.0 mg/dL [facility] ALBUMIN 3.9 3.4 - 4.8 g/dL [facility] AST 21 12 - 32 U/L [facility] ALKALINE PHOSPHATASE 69 35 - 104 U/L [facility] Blood specimen (specimen) 06/16/2007 9:15 AM CDT 06/16/2007 11:08 AM CDT us David Edgar DO CHEMISTRY ORDERABLES Final Result Performing Organization Address City/[facility]/ZIP Co de Phone Number [facility] [address] [place] [address] * (ABNORMAL) LIPID PANEL (06/16/2007 9:15 AM CDT) TRIGLYCERIDE 137 10 - 149 mg/dL [facility] CHOL/HDL RATIO 4.1 2.0 - 5.0 [facility] HDL 53 40 - 59 mg/dL [facility] CHOLESTEROL 215(H) 100 - 199 mg/dL [facility] LDL CALCULATED 135(H) <=99 mg/dL [facility] LIPID PANEL COMMENT See Below [facility] Comment: The adult ATP and pediatric NCEP classifications for lipids are available on the [facility] Intranet at: [email or web address] Select: Lab Policies and Procedures,Current Select: Lipid Panel Interpretation Blood specimen (specimen) 06/16/2007 9:15 AM CDT 06/16/2007 11:08 AM CDT David Edgar DO CHEMISTRY ORDERABLES Edited [facility] [address] [place] [address] * (ABNORMAL) BASIC METABOLIC PANEL (06/16/2007 9:15 AM CDT) GLUCOSE 104(H) 65 - 99 mg/dL [facility] SODIUM 139 135 - 145 mmol/L [facility] CALCIUM 8.9 8.4 - 10.2 mg/dL [facility] CO2 26 22 - 30 mmol/L [facility] CREATININE 1.05(H) 0.51 - 0.95 mg/dL [facility] POTASSIUM 3.9 3.5 - 4.9 mmol/L [facility] BUN 15 6 - 20 mg/dL [facility] CHLORIDE 102 96 - 108 mmol/L [facility] GFR, >60 >=60 mL/min/1. 7 sq meter [facility] GFR 54(L) >=60 mL/min/1. 7 sq meter [facility] Comment: Estimated GFR rate interpretative information for both Americans and non- Americans is available on the [facility] Intranet at: [email or web address] Select: Lab Policies and Procedures Select: Reference Ranges - GFR Blood specimen (specimen) 06/16/2007 9:15 AM CDT 06/16/2007 11:08 AM CDT David Edgar DO CHEMISTRY ORDERABLES Edited [facility] [address] [place] [id number] documented in this encounter Visit Diagnoses Diagnosis Other and unspecified hyperlipidemia documented in this encounter Care Teams Respiratory Therapy Director Relationship Specialty Start Date End Date Humble Han MD [address] [place] [id number] PCP - General Family Practice 02/26/12 documented as of this encounter
[2024-06-03 12:00] LABS: Basophils Absolute Auto 0.1 K/mm3 (0.0-0.1); Basophils Percent Auto 0.7 % (0.2-1.2); Eosinophils Absolute Auto 0.3 K/mm3 (0-0.3); Eosinophils Percent Auto 4.5 % (0-4.4); Hematocrit 35.3 % (37.0-47.0); Hemoglobin 10.5 g/dL (12.0-15.0); Immature Granulocyte Absolute 0.02 K/mm3 (0.00-0.031); Immature Granulocyte Percent A 0.3 % (0-0.5); Lymphocytes Percent Auto 21.9 % (18.3-44.2); Mean Corpuscular HGB Conc 29.7 g/dl (32-36); Mean Corpuscular Volume 94.1 fl (80-100); Mean Platelet Volume 10.4 fl (7.4-10.4); Monocytes Absolute Auto 0.5 K/mm3 (0.1-0.6); Monocytes Percent Auto 6.9 % (2.6-8.5); Neutrophils Absolute Auto 4.5 K/mm3 (1.3-6.7); Neutrophils Percent Auto 65.7 % (45.5-73.1); Platelet Count Result 256 k/mm3 (150-375); Red Blood Count 3.75 M/mm3 (4.2-5.4); Red Cell Distribution Width 12.7 % (11.5-14.5); White Blood Count 6.8 K/mm3 (4.5-10.0)
--- OUTSIDE RECORDS SUMMARY | 2024-06-03 12:00 | XMS_ITS | Encounter Summary ---
Author Organization [facility] Address [address] [place] [address] Care Team Providers Care Laser Machine Operator Name Role Phone Humble Han MD Primary Care Provider [phone] Encounter Details Date Type Department Care Team (Late st Contact Info) Description 04/28/2001 Outpatient Historical [facility] Primary Care - [place] [address] [place] [address] David Edgar, NO ADDRESS ON FILE Social History Tobacco Use Types Packs/Day Years Used Date Smoking Tobacco: Never Assessed Comments Unknown Sex and Gender Information Value Date Recorded Sex Assigned at Not on file 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
--- OUTSIDE RECORDS SUMMARY | 2024-06-03 12:00 | XMS_ITS | Encounter Summary ---
Author Organization [facility] Address 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
--- OUTSIDE RECORDS SUMMARY | 2024-06-03 12:00 | XMS_ITS | Encounter Summary ---
Author Organization [facility] Address [address] [place] [address] Care Team Providers Care Buttermilk Drier Operator Name Role Phone Humble Han MD Primary Care Provider [phone] Encounter Details Date Type Department Care Team (Late st Contact Info) Description 04/21/2001 Outpatient Historical [facility] Primary Care - [place] [address] [place] [address] David Edgar, NO ADDRESS ON FILE Social History Tobacco Use Types Packs/Day Years Used Date Smoking Tobacco: Never Assessed Comments Unknown Sex and Gender Information Value Date Recorded Sex Assigned at Not on file 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
--- OUTSIDE RECORDS SUMMARY | 2024-06-03 12:00 | XMS_ITS | Encounter Summary ---
Author Organization [facility] Address [address] [place] [address] Care Team Providers Care Customer Experience Professional Name Role Phone Humble Han MD Primary Care Provider [phone] Encounter Details Date Type Department Care Team (Late st Contact Info) Description 08/07/1999 Outpatient Historical [facility] Primary Care - [place] [address] [place] [address] David Edgar, NO ADDRESS ON FILE Social History Tobacco Use Types Packs/Day Years Used Date Smoking Tobacco: Never Assessed Comments Unknown Sex and Gender Information Value Date Recorded Sex Assigned at Not on file 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
--- OUTSIDE RECORDS SUMMARY | 2024-06-03 12:00 | XMS_ITS | Encounter Summary ---
Author Organization [facility] Address [address] [place] [address] Care Team Providers Care Residential Electrician Name Role Phone Humble Han MD Primary Care Provider [phone] Encounter Details Date Type Department Care Team (Late st Contact Info) Description 10/02/2000 Outpatient Historical [facility] Primary Care - [place] [address] [place] [address] David Edgar, NO ADDRESS ON FILE Social History Tobacco Use Types Packs/Day Years Used Date Smoking Tobacco: Never Assessed Comments Unknown Sex and Gender Information Value Date Recorded Sex Assigned at Not on file 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
--- OUTSIDE RECORDS SUMMARY | 2024-06-03 12:00 | XMS_ITS | Data Portability ---
Author Organization [place] [facility], Main Office Address [address] [place] [address] Care Team Providers Care Recruitment Consultant Name Role Phone CHANDA FREIRE Primary Care Provider [phone] CHANDA FREIRE Referring Provider CHANDA FREIRE Primary Care Provider [phone] Assessment Encounter Date Assessment Date Assessment LastModified by Organization Details LastModified Time 05/24/2024 05/24/2024 HPI: 73 year old female presents today for an evaluation of right knee pain that has been ongoing for the past year. This is a result of unknown etiology. Localizes pain to medial side and inferior patella. Reports pain today as 7/10. Pain is aggravated by changes in weather, prolonged sitting and standing. Denies mechanical symptoms. She has tried Tylenol and several OTC creams. She is unable to take NSAIDs due to kidney disease. There is no history of prior injury. No history of surgery. ROS: Per patient questionnaire Physical Exam: General: Normal appearance. No acute distress. Inspection: No evidence of swelling, erythema, bruising or deformity. Palpation: Tenderness to palpation of the medial and lateral joint line, and inferior patella. ROM: 0-110 Special Test: Pain with terminal flexion. Positive Claribel, Negative Lachmann, No valgus or varus instability. Negative Posterior Draw. Motor: 4+/5 strength. Sensation: Sensation intact. Imaging: Outside xray reviewed. Demonstrates tricompartmental osteoarthritis, moderate in the medial and lateral compartments. Assessment & Plan: We will begin conservative management for osteoarthritis. PT ordered. Discussed continuing Tylenol and can try Voltaren gel. Educated about weight reduction through diet and exercise improve knee osteoarthritis Discussed since she is unable to take NSAIDs that she could try Duloxetine 60mg, but she should talk to her PCP and Pric[employer]. Last A1C October 2023 was 6.4% and has not been well controlled, so advised against a cortisone injection. Follow Up: 6-8 weeks after a course of PT. If no improvement, we can try gel injections. Call before follow up appointment so we can order gel injection. All questions were answered. Patient verbalized understanding of the treatment plan [email or web address] Not available 05/24/2024 13:18:05 Plan of Treatment Reminders Order Date Submit Date Provider Last Modified By Organization Details Last Modified Time Details Appointments Any 5 2024 10:35A Judson Corona MD Not available Not available Not available Any 15 2024 08:45A Judson Freire MD Not available Not available Not available Lab lipid panel, serum 2023 024 [facility], [address] [place], [address], 02/25/2024 17:12:31 lipid panel, serum [email or web address], [address] [place], [address], 09/30/2023 08:43:35 Referral physical therapist referral - Please contact pt to schedule apt for R knee. Thanks 2024 025 [email or web address] [facility] [place], [address] [place], [address], 05/26/2024 15:30:31 orthopedi c surgeon referral - Please call patient to schedule an appointme nt. Thank you. 2024 025 KRYSTLE Corona MD, [address] [facility], [place], [address], 05/24/2024 13:20:03 Procedures None recorded. Surgeries None recorded. Imaging MAMMO, screening , bilateral - Please call patient to schedule. [address] (Mammography) , [address], [place], [address], 02/16/2024 14:59:46 XR, knee [address], [address], [place], [address], 02/02/2024 14:53:08 DEXA [address] (Imaging), [facility] [address], [place], [address], 02/02/2024 14:53:08 audiogram + tympanogr am [email or web address] [facility], [address] [facility], [address], [place], [address], 08/18/2023 12:02:18 Medication Orders clobetaso l 0.05 % topical ointment 2023 024 [facility] [id number] [facility], [address] [place], [address], 09/15/2023 10:24:18 Patient TargetsNo targets recorded. Patient Instructions Encounter Date Encounter Id Patient Instructions Last Modified By Organization Details Last Modified Time 09/15/2023 [id number] Exercise discussed, physical activity handouts given Dietary counseling given, nutrition handouts given Not available 09/15/2023 09:54:49 01/01/2024 [id number] Exercise discussed, physical activity handouts given Dietary counseling given, nutrition handouts given Not available 01/01/2024 09:30:34 04/29/2024 [id number] Exercise discussed, physical activity handouts given Dietary counseling given, nutrition handouts given Not available 04/29/2024 09:45:18 Reason for Referral Orthopedic Surgeon Referral for Pain of right knee joint Please call patient to schedule an appointment. Thank you. Referring Physician: Chanda Freire, Internal Medicine, Encounter Date: 04/29/2024 Physical Therapist Referral for Pain of right knee joint R knee Please contact pt to schedule apt for R knee. Thanks Referring Physician: Omid Wu, Orthopedic Surgery, Encounter Date: 05/24/2024 Results Created Date Observation Date Name Description Value Unit Range Abnormal Flag Note LastModifiedBy Organization Detail LastModifiedTime 03/31/19 25 03/22/2024 XR, knee No observ ation record ed. [email or web address] [facility] [address], [place], [address], 03/31/2024 15:49:08 Result Notes None recorded. Problems Name Problem SNOMED Code Status Onset Date Resolution Date Notes Provider Name and Address Organization Details Recorded Time Bilateral tinnitus 18861077955 02 Active 2022 Not Available [facility] 4 10:58:01 Acute sinusitis 36889892 Active 2022 Not Available [facility] 4 10:58:01 Pruritic rash 94778877 Active 2023 Chanda Freire MD [address], [place], [address] , [employer] 4 10:22:06 Pain of right knee joint 39503826619 4100 Active 2023 Chanda Freire MD [address], [employer], [place], [address] , [employer] 4 09:50:09 Osteoarth ritis of right knee joint 61207571597 9100 Active 2024 Omid Wu PA-C [address], [employer], [place], [address] , [employer] 5 13:18:17 Chronic obstructi ve pulmonary disease 28094949 Completed Not Available [facility] 3 04:47:35 Chronic depressio n 700344864 Active Not Available [facility] 4 10:58:01 Asthma 799016103 Active Not Available [facility] 4 10:58:01 Gastroeso phageal reflux disease 909973168 Active Not Available [facility] 4 10:58:01 Screening mammograp hy Completed 202111/09/2021 Not Available [facility] 3 04:47:36 Adult health examinati on Active 2021 Not Available [facility] 4 10:58:01 Screening for osteoporo sis Completed 202103/07/2022 Not Available [facility] 3 04:47:36 Osteopeni a 843939779 Active 2021 Not Available [facility] 4 10:58:01 Malignant neoplasm of skin 529973584 Active 2016 Not Available [facility] 4 10:58:01 Obesity 739946749 Active Not Available [facility] 4 10:58:01 Upper respirato ry infection 46853291 Completed Not Available [facility] 3 04:47:36 Hyperlipi demia 57977957 Active Not Available [facility] 4 10:58:01 Essential hypertens ion 51590315 Active Not Available [facility] 4 10:58:01 Allergic rhinitis 19215609 Active Not Available [facility] 4 10:58:01 Diabetes mellitus 20910687 Active 2021 Not Available [facility] 4 10:58:01 Overactiv e urinary bladder 746362148 Active 2020 Not Available [facility] 4 10:58:01 COVID-19 659357359 Completed 202111/09/2021 Not Available [facility] 3 04:47:37 Fatigue 40851459 Active 2021 Not Available [facility] 4 10:58:01 Gout 15520624 Active Not Available [facility] 4 10:58:01 Kidney disease 86653671 Active Not Available [facility] 4 10:58:01 Disorder of skin 31074351 Completed Not Available [facility] 3 04:47:37 Bilateral cataracts 01732257 Active 2022 Not Available [facility] 4 10:58:01 Problem Notes Documentation Provider Name and Address Organization Details Recorded Time Orthopedic Surgeon Consult Note : [facility] [address] [facility] [address]TYTYZE, Dianne (id #[id number], : 1950) Documents sent via fax will include the following message: This fax may contain sensitive and confidential personal health information that is being sent for the sole use of the intended recipient. Unintended recipients are directed to securely destroy any materials received. You are hereby notified that the unauthorized disclosure or other unlawful use of this fax or any personal health information is prohibited. To the extent patient information contained in this fax is subject to 42 CFR Part 2, this regulation prohibits unauthorized disclosure of these records. If you received this fax in error, please visit [email or web address] to notify the sender and confirm that the information will be destroyed. If you do not have internet access, please call to notify the sender and confirm that the information will be destroyed. Thank you for your attention and cooperation. [ID:[id number]] , Date: 05/24/2024RE: Earnest Camacho MD, I would like to thank you for referring Conchis Serrano to me for consultation and evaluation of Right knee pain , on 05/24/2024. I have enclosed a copy of the office assessment and plan for your records. Once again, thank you for allowing me to participate in the care of this patient. Sincerely, Electronically Signed by: OMID WU PA-C, PASIQRA Assessment/PlanHPI:73 year old female presents today for an evaluation of right knee pain that has been ongoing for the past year. This is a result of unknown etiology. Localizes pain to medial side and inferior patella. Reports pain today as 7/10. Pain is aggravated by changes in weather, prolonged sitting and standing. Denies mechanical symptoms. She has tried Tylenol and several OTC creams. She is unable to take NSAIDs due to kidney disease. There is no history of prior injury. No history of surgery. ROS:Per patient questionnaire Physical Exam:General:Normal appearance. No acute distress.Inspection:No evidence of swelling, erythema, bruising or deformity.Palpation:Tendern ess to palpation of the medial and lateral joint line, and inferior patella.ROM: 0-110Special Test:Pain with terminal flexion. Positive Claribel, Negative Lachmann, No valgus or varus instability. Negative Posterior Draw.Motor:4+/5 strength.Sensation:Sensatio n intact. Imaging:Outside xray reviewed. Demonstrates tricompartmental osteoarthritis, moderate in the medial and lateral compartments. Assessment & Plan:We will begin conservative management for osteoarthritis. PT ordered. Discussed continuing Tylenol and can try Voltaren gel. Educated about weight reduction through diet and exercise improve knee osteoarthritis Discussed since she is unable to take NSAIDs that she could try Duloxetine 60mg, but she should talk to her PCP and Pricing Associate. Last A1C October 2023 was 6.4% and has not been well controlled, so advised against a cortisone injection. Follow Up:6-8 weeks after a course of PT. If no improvement, we can try gel injections. Call before follow up appointment so we can order gel injection. All questions were answered. Patient verbalized understanding of the treatment plan 1. Pain of right knee [id number]: Pain in right knee PHYSICAL THERAPIST REFERRAL - Schedule Within: provider's discretion Note to Provider: Please contact pt to schedule apt for R knee. Thanks Evaluate & Treat: Per PT Side: RIGHT Reason for Referral: R knee # of requested visits: 12 2. Osteoarthritis of right knee [id number]: Unilateral primary osteoarthritis, right knee Return to Office Stone Corona MD for Any 5 at [facility] [place] on 07/26/2024 at 10:35 AM Chanda Freire MD for Any 15 at [facility] Internal Med [facility] on 08/30/2024 at 08:45 AM Chanda Freire MD [address] [facility] [facility] [address], [place], [address], [employer] 06/03/2024 12:06:30 Procedures Surgical History Date Name Laterality Status Provider Name and Address Organization Details Recorded Time 10/18/19 Medicare Wellness CPT Code, subsequent completed Laurel Gonzalez RN [employer] 10/17/2022 10:38:26 10/18/19 23 Advanced Care Planning completed Laurel Gonzalez RN [facility] 10/17/2022 10:45:57 12/05/19 22 Date of Last Mammogram completed Laurel Gonzalez RN [facility] 10/17/2022 10:40:29 12/05/19 22 Most Recent Bone Density completed Laurel Gonzalez RN [facility] 10/17/2022 10:40:50 section completed Not Available [facility] 04/17/2022 04:41:48 extraction of wisdom tooth completed Not Available [facility] 04/17/2022 04:41:48 Total hysterectomy completed Not Available [facility] 04/17/2022 04:41:48 extraction of cataract completed Debbie Quinn RN [facility] 05/21/2023 11:17:33 Imaging Results Imaging Date Name Status LastModified by Organiz ation Details LastModified Time 03/22/2024 XR, knee completed [email or web address] [facility] [address] [facility] [address], [place], [address], 03/31/2024 15:49:08 Procedure Notes None recorded. Medical Equipment None Reported. Allergies Allergen ID Allergen Name Allergen Category Reaction Reaction Severity Criticality Documentation Date Start Date Code Code System Note Provider Name and Address Organization Details Recorded Time 7049 Substance with sulfonami de structure and antibacte rial mechanism of action (substanc e) medicatio n Not available Not available Not available 04/17/2022 17904 8003 SNOMED unkno wn Not Available [facility] 04:55:30 Medications Name Sig Start Date Stop Date Status Note LastModified by Organization Details LastModified Time amoxicillin 500 mg capsule TK 1 C PO TID FOR 7 DAYS active Not Available Not Available No t Available furosemide 40 mg tablet TAKE 1 TABLET BY MOUTH TWICE A DAY FOR 90 DAYS active Not Available Not Available No t Available prednisone 10 mg tablet Take 3 x 2 days, 2 x 2 days, 1 x 2 days in AM active Not Available Not Available No t Available doxycycline hyclate 100 mg capsule Take 1 capsule twice a day by oral route. 04/10 completed Not Available Not Available Not Available paroxetine 10 mg tablet TAKE 1 TABLET BY MOUTH DAILY 10/05 completed Not Available Not Available Not Available fexofenadin e 60 mg tablet Take 1 tablet twice a day by oral route as needed. 06/03 completed Not Available Not Available Not Available cetirizine 10 mg tablet TAKE ONE TABLET BY MOUTH DAILY 06/03 completed Not Available Not Available Not Available ofloxacin 0.3 % eye drops PLEASE SEE ATTACHED FOR DETAILED DIRECTION S 06/02 completed Not Available Not Available Not Available benzonatate 200 mg capsule TK 1 C PO TID 04/10 completed Not Available Not Available Not Available flurbiprofe n 0.03 % eye drops INSTILL 1 DROP 3 TIMES DAILY IN SURGICAL EYE 2 DAYS PRIOR TO SURGERY, CONTINUIN G FOR 2 WEEKS AFTER 09/14 completed Not Available Not Available Not Available famotidine 40 mg tablet TAKE 1 TABLET BY MOUTH DAILY 09/14 completed Not Available Not Available Not Available Zithromax Z-Juan 250 mg tablet TAKE 2 TABLETS (500 MG) BY ORAL ROUTE ONCE DAILY FOR 1 DAY THEN 1 TABLET (250 MG) BY ORAL ROUTE ONCE DAILY FOR 4 DAYS active Not Available Not Available No t Available acetaminoph en 300 mg-codeine 30 mg tablet TK 1 T PO QID PRN P active Not Available Not Available No t Available ciprofloxac in 250 mg tablet TAKE 1 TABLET BY MOUTH EVERY 12 HOURS FOR 10 DAYS 06/02 completed Not Available Not Available Not Available ciprofloxac in 500 mg tablet 03/16 completed Not Available Not Available Not Available ketorolac 0.5 % eye drops PLEASE SEE ATTACHED FOR DETAILED DIRECTION S 09/14 completed Not Available Not Available Not Available prednisolon e acetate 1 % eye drops,suspe nsion INSTILL 1 DROP INTO SURGICAL EYE 3 TIMES A DAY STARTING AFTER SURGERY. CONTINUE FOR 3 WEEKS 09/14 completed Not Available Not Available Not Available dicyclomine 20 mg tablet active Not Available Not Available Not Available ciprofloxac in 0.3 % eye drops PLEASE SEE ATTACHED FOR DETAILED DIRECTION S 06/02 completed Not Available Not Available Not Available meclizine 25 mg tablet Take 1 tablet 3 times a day by oral route as needed. active Not Available Not Available No t Available cephalexin 500 mg capsule TAKE 1 CAPSULE BY MOUTH THREE TIMES A DAY 09/14 completed Not Available Not Available Not Available paroxetine 20 mg tablet TAKE 1 TABLET BY MOUTH DAILY active Not Available Not Available No t Available simvastatin 20 mg tablet TAKE 1 TABLET DAILY active Not Available Not Available No t Available oseltamivir 75 mg capsule TAKE 1 CAPSULE BY MOUTH TWICE A DAY 10/17 completed Not Available Not Available Not Available esomeprazol e magnesium 40 mg capsule,del ayed release TAKE 1 CAPSULE BY MOUTH EVERY DAY active Not Available Not Available No t Available Advair Diskus 250 mcg-50 mcg/dose powder for inhalation active Not Available Not Available N ot Available indomethaci n 50 mg capsule Take 1 capsule 3 times a day by oral route for 7 days. 09/01 completed Not Available Not Available Not Available allopurinol 300 mg tablet TAKE 1 TABLET BY MOUTH DAILY 09/14 completed Not Available Not Available Not Available mupirocin 2 % topical ointment APPLY 1 GRAM TOPICALLY 2 TO 3 TIMES DAILY 09/14 completed Not Available Not Available Not Available clobetasol 0.05 % topical ointment APPLY THIN COAT TO AFFECTED AREA TWICE A DAY active Not Available Not Available No t Available levofloxaci n 500 mg tablet Take 1 tablet every 24 hours by oral route for 7 days. active Not Available Not Available No t Available methylpredn isolone 4 mg tablets in a dose pack take as directed active Not Available Not Available No t Available albuterol sulfate HFA 90 mcg/actuati on aerosol inhaler USE 2 INHALATIO NS BY MOUTH EVERY 4 HOURS NEEDED active Not Available Not Available No t Available Vitamin D2 1,250 mcg (50,000 unit) capsule TAKE 1 CAPSULE BY MOUTH EVERY 2 WEEKS 90 DAYS active Not Available Not Available No t Available cefdinir 300 mg capsule 04/21 completed Not Available Not Available Not Available losartan 100 mg tablet TAKE 1 TABLET BY MOUTH DAILY active Not Available Not Available No t Available fluticasone propionate 50 mcg/actuati on nasal spray,suspe nsion active Not Available Not Available Not Available ramipril 5 mg capsule TAKE 3 CAPSULES DAILY active Not Available Not Available No t Available olmesartan 40 mg tablet TAKE 1 TABLET BY MOUTH ONCE DAILY 06/10 completed Not Available Not Available Not Available rosuvastati n 10 mg tablet TAKE 1 TABLET BY MOUTH DAILY active Not Available Not Available No t Available Symbicort 80 mcg-4.5 mcg/actuati on HFA aerosol inhaler USE 2 INHALATIO NS BY MOUTH TWICE DAILY active Not Available Not Available No t Available Fluvirin 2384-5309 45 mcg (15 mcg x 3)/0.5 mL intramuscul ar suspension active Not Available Not Available N ot Available Fluad 2016- 65yr up(PF)45 mcg(15 mcgx3)/0.5 mL intramuscul ar syringe ADM 0.5ML IM UTD 03/13 completed Not Available Not Available Not Available Fluzone High-Dose (PF) 180 mcg/0.5 mL intramuscul ar syringe ADMINISTE R 0.5ML IN THE MUSCLE DIRECTED 02/26 completed Not Available Not Available Not Available Fluzone High-Dose Quad (PF) 240 mcg/0.7 mL IM syringe active Not Available Not Available N ot Available Vitals Date Recorded Body height Body mass index (BMI) Body weight Body temperature Provider Name and Address Organization Details Last Updated DateTime 05/21/2023 165.1 cm 33.4 kg/m2 10241.35 g 97.8 [degF] Debbie Quinn RN [facility] 05/21/2023 11:18:22 Date Recorded Body height Body mass index (BMI) Body weight Body temperature Heart rate Oxygen saturation Oxygen saturation in Arterial blood by Pulse oximetry Systolic blood pressure Diastolic blood pressure Provider Name and Address Organization Details Last Updated DateTime 4 165.1 cm 32.8 kg/m2 95159.7 g 97.3 [degF] 80 /min 96 % 96 % 128 mm[Hg] 74 mm[Hg] [facility] 4 10:07:48 Date Recorded Body height Body mass index (BMI) Body weight Body temperature Heart rate Oxygen saturation Oxygen saturation in Arterial blood by Pulse oximetry Systolic blood pressure Diastolic blood pressure Provider Name and Address Organization Details Last Updated DateTime 4 165.1 cm 32.3 kg/m2 00424.9 2 g 97.6 [degF] 82 /min 96 % 96 % 134 mm[Hg] 80 mm[Hg] DAVID Lai [facility] [place] [employer] [facility] 4 09:29:52 Date Recorded Body height Body mass index (BMI) Body weight Body temperature Heart rate Oxygen saturation Oxygen saturation in Arterial blood by Pulse oximetry Systolic blood pressure Diastolic blood pressure Provider Name and Address Organization Details Last Updated DateTime 5 165.1 cm 31.6 kg/m2 12449.5 5 g 97.4 [degF] 75 /min 96 % 96 % 130 mm[Hg] 72 mm[Hg] Sheyla irving [facility] [employer] [facility] 5 09:44:37 Date Recorded Body height Body mass index (BMI) Body weight Pain severity - 0-10 verbal numeric rating [Score] - Reported Provider Name and Address Organization Details Last Updated DateTime 05/24/2024 165.1 cm 31.6 kg/m2 39030.55 g 7 Christie Benny [facility] [employer] [facility] 05/24/2024 10:56:41 Social History Question Answer Notes LastModified by Organizat ion Details LastModified Time Tobacco Smoking Status Never Smoker Not Available [facility] 04/17/2022 04:21:02 Do You Have An Advance Directive? No [id number] Information not available 04/17/2022 What Is Your Level Of Alcohol Consumption? Occasional [id number] Information not available 04/17/2022 Are You Blind Or Do You Have Difficulty Seeing? No [id number] Information not available 04/17/2022 How Much Tobacco Do You Chew? None [id number] Information not available 04/17/2022 Are You Deaf Or Do You Have Serious Difficulty Hearing? No [id number] Information not available 04/17/2022 What Type Of Diet Are You Following? REGULAR [id number] Information not available 04/17/2022 Which Illicit Or Recreational Drugs Have You Used? None [id number] Information not available 04/17/2022 Do You Or Have You Ever Used E-cigarettes Or Vape? 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 No [id number] Information not available 04/17/2022 What Is The Fluoride Status Of Your Home? Fluoridated [id number] [id number] Information not available 04/17/2022 Where Do You Live? Apartment [id number] Information not available 04/17/2022 Presence Of Domestic Violence No [email or web address] Information not available 10/17/2022 Are You Able To Care For Yourself? Yes [email or web address] Information not available 10/17/2022 Are You Blind Or Do Yo Have Difficulty Seeing? No [email or web address] Information not available 10/17/2022 Are You Deaf Or Do You Have Serious Difficulty Hearing? No [email or web address] Information not available 10/17/2022 General Stress Level? Moderate [email or web address] Information not available 10/17/2022 Live Alone Of With Others? With Others [email or web address] Information not available 10/17/2022 What Was The Date Of Your Most Recent Tobacco Screening? 05/24/2024 [email or web address] Information not available 05/24/2024 Do You Have Any Pets? No [id number] Information not available 04/17/2022 What Is Your Relationship Status? [email or web address] Information not available 10/17/2022 Do You Use Your Seat Belt Or Car Seat Routinely? Yes MIGRATION.59287 [id number] Information not available 04/17/2022 Do You Have Smoke And Carbon Monoxide Detectors In Your Home? Yes MIGRATION.32281 11447 Information not available 04/17/2022 Are You Passively Exposed To Smoke? No MIGRATION.53385 61171 Information not available 04/17/2022 Do You Or Have You Ever Used Smokeless Tobacco? Never Used Smokeless Tobacco MIGRATION.07785 19774 Information not available 04/17/2022 Are There Any Smokers In Your House? No MIGRATION.05665 79934 Information not available 04/17/2022 Do You Feel Stressed (tense, Restless, Nervous, Or Anxious, Or Unable To Sleep At Night)? [id number] Beginning To Have Signs For Dementia MIGRATION.97651 30108 Information not available 04/17/2022 Do You Use Sunscreen Routinely? Yes MIGRATION.59283 77542 Information not available 04/17/2022 Sex: Unknown Functional Status Question Answer Note LastModified by Organizat ion Details LastModified Time Do you have difficulty walking or climbing stairs? No MIGRATION.[id number] 026 Information not available 04/17/2022 Do you have transportation difficulties? No MIGRATION.[id number] 026 Information not available 04/17/2022 Are you able to walk? YESWOREST MIGRATION.[id number] 026 Information not available 04/17/2022 Do you have difficulty doing errands alone? No MIGRATION.[id number] 026 Information not available 04/17/2022 Are you able to care for yourself? Yes MIGRATION.[id number] 026 Information not available 04/17/2022 Do you have difficulty dressing or bathing? No MIGRATION.5899421 026 Information not available 04/17/2022 What is your exercise level? Occasional MIGRATION.[id number] 026 Information not available 04/17/2022 Mental Status Question Answer Note LastModified by Organizat ion Details LastModified Time Do you have difficulty concentrating, remembering or making decisions? No MIGRATION.[id number] 6 Information not available 04/17/2022 Family History Relationship Description Onset Age of this Age Resolved Age Notes LastModified by Organization Details LastModified Time Sister Heart disease [id number] Not available 04/17/2022 04:41:50 Brother Heart disease MIGRATION.910 [id number] Not available 04/17/2022 04:41:50 Notes:PT IS ADOPTED Medical History Condition Response ARTHRITIS Y DIABETES, TYPE Y CANCER: SPECIFY Y GOUT Y HYPERTENSION Y Gynecological History Statement/Question Response Date of Last Mammogram 12/04/2021 Date of Last Colonoscopy Date of Last Mammogram 12/04/2021 Most Recent Bone Density 12/04/2021 Obstetrics History GPAL:G 0 P 0 0 0 0 Immunizations Vaccine Type Date Status Note Provider Nam e and Address Organization Details Recorded Time Influenza, split virus, trivalent, PF 4 completed Not Available [facility] 03/27/2023 10:58:01 COVID-19, mRNA, LNP-S, PF, 30 mcg/0.3 mL dose 1 completed Not Available [facility] 03/27/2023 10:58:01 Influenza, high-dose, quadrivalent, PF 1 completed Not Available [facility] 03/27/2023 10:58:01 SARS-COV-2 (COVID-19) vaccine, UNSPECIFIED 1 completed Not Available [facility] 03/27/2023 10:58:01 Influenza, high-dose, trivalent, PF 0 completed Not Available [facility] 03/27/2023 10:58:01 influenza, unspecified formulation 8 completed Not Available [facility] 03/27/2023 10:58:01 Influenza, high-dose, trivalent, PF 6 completed Not Available [facility] 03/27/2023 10:58:01 Influenza, high-dose, trivalent, PF 9 completed Not Available [facility] 03/27/2023 10:58:01 influenza, unspecified formulation 7 completed Not Available [facility] 03/27/2023 10:58:01 Pneumococcal conjugate PCV 13 7 completed Not Available [facility] 03/27/2023 10:58:01 pneumococcal polysaccharide PPV23 5 completed Not Available [facility] 03/27/2023 10:58:01 Past Encounters Encounter ID Performer Location Encounter Start Date Encounter Closed Date Diagnosis/Indication Diagnosis SNOMED-CT Code Diagnosis ICD10 Code Diagnosis Note [id number] [facility] [address] [address] 06/21/2020 00:00:00 06/21/2020 11:03:29 [id number] [facility] [address] [address] 10/19/2020 00:00:00 10/19/2020 10:50:24 [id number] [facility] [address] [address] 12/25/2020 00:00:00 12/25/2020 15:57:37 [id number] [facility] [address] [address] 03/16/2021 00:00:00 03/16/2021 14:28:34 [id number] [facility] [address] [address] 07/12/2021 00:00:00 07/12/2021 13:03:10 [id number] [facility] [address] [place] [address] 11/12/2021 00:00:00 11/12/2021 10:07:51 [id number] [facility] [address] [place] [address] 03/11/2022 00:00:00 03/11/2022 10:20:18 [id number] Chanda Freire MD [facility] Internal Med [address] [place] [address] 06/03/2022 11:03:00 06/03/2022 12:04:07 Essential hypertension 86987854 I10 under control Diabetes mellitus 035069 09 E11.9 diet controlled Hyperlipidemia 56124413 E78.5 labs good Asthma 741861382 J45.90 9 under control Gastroesop hageal reflux disease 847084026 K21.9 under control Gout 35153499 M10.9 stable Allergic rhinitis 405209 04 J30.9 otc Kidney disease 55332890 N08 stable GFR, drinking more water Overactive urinary bladder 695958917 N32.81 using pads Osteopenia 971391778 M85 .80 on ca/vit d Adult heal th examination 212605004 Z00.00 adult health examinatio nColonosco py- 10yrs ago and was orderedDex a- 11/2021Mam mogram- 11/2021Has had pneumovax and prevnarFLU - ovid -had all 3 Obesity 774290156 E66.9 advised to lose more weight Chronic depression 17484 0009 F34.1 stable Malignant neoplasm of skin 876960650 C44.90 needs f/u with dermatolog ist, again discussed Pre-surger y evaluation 691319668 Z01.818 low risk Bilateral tinnitus 18871 23691 102 H93.13 ENT if not better in a month [id number] Chanda Freire MD [facility] Internal Med [address] [facility] [place] [address] 10/17/2022 09:49:58 10/17/2022 10:35:03 Essential hypertension 74277779 I10 under control Diabetes mellitus 791112 09 E11.9 diet controlled Hyperlipidemia 64111111 E78.5 labs Asthma 771469061 J45.90 9 under control Gastroesop hageal reflux disease 529021032 K21.9 under control Gout 10824705 M10.9 stable Allergic rhinitis 935751 04 J30.9 otc Kidney disease 17777403 N08 stable GFR, Overactive urinary bladder 263234151 N32.81 try Gemtesa samples Osteopenia 771240149 M85 .80 on otc Adult heal th examination 181309300 Z00.00 adult health examinatio nColonosco py- 10yrs ago and was orderedDex a- 11/2021Mam mogram- 11/2021Has had pneumovax and prevnarFLU - ovid -had all 3 Obesity 747578891 E66.9 advised to lose weight Chronic depression 61143 0009 F34.1 stable Malignant neoplasm of skin 858386288 C44.90 needs f/u with dermatolog ist, again discussed, willing Bilateral tinnitus 24320 73032 102 H93.13 miold Screening for malignant neoplasm of colon 857598432 Z12.11 Screening mammography 24 816590 Z12.31 Screening for disorder 897490782 Z13.9 [id number] Chanda Freire MD [facility] Internal Med [address] [facility] [place] [address] 12/18/2022 10:48:23 12/18/2022 11:21:49 Acute sinusitis 29252521 J01.90 [id number] Chanda Freire MD [facility] Internal Med [address] [facility] [place] [address] 04/10/2023 10:06:33 04/10/2023 11:14:01 Essential hypertension 77693085 I10 under control Diabetes mellitus 461985 09 E11.9 diet controlled , under control Hyperlipidemia 54491013 E78.5 labs good Asthma 235193718 J45.90 9 under control Gastroesop hageal reflux disease 417215470 K21.9 under control Gout 32466204 M10.9 stable Allergic rhinitis 800015 04 J30.9 ot Kidney disease 24656415 N08 GFR 50 Overactive urinary bladder 659540946 N32.81 pads Osteopenia 928074585 M85 .80 on ot Adult heal th examination 111961523 Z00.00 adult health examinatio nColonosco py- 10yrs ago and was orderedDex a- 11/2021Mam mogram- 11/27/22 s had pneumovax and prevnarFLU - ovid -had all 3 Obesity 920484909 E66.9 advised to lose weight Chronic depression 86013 0009 F34.1 stable Malignant neoplasm of skin 004173433 C44.90 needs f/u with dermatolog ist, again discussed, Bilateral tinnitus 60319 90353 102 H93.13 symptoms getting worse [id number] Jonathan Martino MD [facility] [place] [address] [place] [address] 05/21/2023 11:01:34 05/22/2023 09:50:44 Bilateral tinnitus 2053338076 102 H93.13 [id number] Chanda Freire MD [facility] [address] [place] [address] 09/15/2023 09:41:37 09/15/2023 10:28:12 Essential hypertension 89316413 I10 under control Diabetes mellitus 102974 09 E11.9 diet controlled , under control Hyperlipidemia 63028464 E78.5 labs good Asthma 242213729 J45.90 9 under control Gastroesop hageal reflux disease 495107980 K21.9 under control Gout 18963208 M10.9 stable Allergic rhinitis 261096 04 J30.9 ot Kidney disease 60394869 N08 GFR 50 Overactive urinary bladder 722747295 N32.81 pads Osteopenia 672587531 M85 .80 on ot Adult [facility] th examination 688416161 Z00.00 Colonoscop y- had it in the past, due but does not want any moreDexa- 11/2021Mam mogram- 11/27/22Ha s had pneumovax and prevnarFLU - 2022- per ptCovid -had all 3 Obesity 307229451 E66.9 advised to lose weight Chronic depression 71046 0009 F34.1 stable Malignant neoplasm of skin 941957872 C44.90 needs f/u with dermatolog ist, again discussed, Pruritic rash 16799155 L 28.2 [id number] Chanda Freire MD [facility] Internal Med [address] [place] [address] 01/01/2024 09:19:15 01/01/2024 09:59:23 Essential hypertension 66824396 I10 under control Diabetes mellitus 792092 09 E11.9 diet controlled , under control Hyperlipidemia 65378292 E78.5 labs Asthma 249750733 J45.90 9 under control Gastroesop hageal reflux disease 210813271 K21.9 under control Gout 26265944 M10.9 stable Allergic rhinitis 622296 04 J30.9 otc Kidney disease 60159350 N08 GFR better Overactive urinary bladder 947666316 N32.81 pads Osteopenia 672310582 M85 .80 on otc Adult heal th examination 632208060 Z00.00 Colonoscop y- had it in the past, due but does not want any moreDexa- 11/2021Mam mogram- 11/27/22Ha s had pneumovax and prevnarFLU - 11/2023 ([facility])Covid -had all 3 Obesity 025260265 E66.9 advised to lose weight Chronic depression 15227 0009 F34.1 stable Malignant neoplasm of skin 292458096 C44.90 needs f/u with dermatolog ist, again discussed, Screening mammography 24 036199 Z12.31 Screening for osteoporosis 726972071 Z13.820 Pain of ri ght knee joint 0339065512 71573 M25.688 [id number] Chanda Freire MD [facility] Internal Med [address] [place] [address] 04/29/2024 09:35:36 04/29/2024 10:08:21 Essential hypertension 41547688 I10 under control Diabetes mellitus 849048 09 E11.9 diet controlled , under control Hyperlipidemia 19423542 E78.5 under control Asthma 354131098 J45.90 9 under control Gastroesop hageal reflux disease 975234779 K21.9 under control Gout 72915424 M10.9 stable Allergic rhinitis 722379 04 J30.9 otc Kidney disease 56581696 N08 GFR 35 Overactive urinary bladder 628219878 N32.81 pads Osteopenia 193571642 M85 .80 on otc Adult heal th examination 007664476 Z00.00 Colonoscop y- had it in the past, due but does not want any moreDexa- 11/2021, getting in 09/10Mammog perla- 11/27/22, getting in 09/10Has had pneumovax and prevnarFLU - 11/2023 ([facility])Covid - had all 3 Obesity 849976225 E66.9 advised to lose weight Chronic depression 21255 0009 F34.1 stable Malignant neoplasm of skin 464958741 C44.90 needs f/u with dermatolog ist, again discussed, willing Pain of ri ght knee joint 4805678274 14807 M25.149 [id number] Omid Wu PA-C [facility] [address] [address] 05/24/2024 10:32:46 05/24/2024 11:30:19 Pain of right knee joint 4970033994 14670 M25.561 Osteoarthr itis of right knee joint 8228690848 77315 M17.11 Health Concerns Section Related Observation LastModified by Organization Detai ls LastModified Time None Recorded Concern Status LastModified by Organization Details LastModified Time None Recorded Advance Directives Directive N: Payers Encounter Date Sequence Insurance Name Policy Number Policy Leonard Covered Member ID Leonard Member ID Guarantor Name 05/21/2023 1 [facility] (MEDICARE REPLACEMENT/A DVANTAGE - HMO) [id number] Conchis Serrano [id number] Conchis Serrano 09/15/2023 1 [facility] (MEDICARE REPLACEMENT/A DVANTAGE - HMO) [id number] Conchis Serrano [id number] Conchis Serrano 01/01/2024 1 [facility] (MEDICARE REPLACEMENT/A DVANTAGE - HMO) [id number] Conchis Serrano [id number] Conchis Serrano 04/29/2024 1 [facility] (MEDICARE REPLACEMENT/A DVANTAGE - HMO) [id number] Conchis Serrano [id number] Conchis Zach 05/24/2024 1 [facility] (MEDICARE REPLACEMENT/A DVANTAGE - HMO) [id number] Conchis Lowery Zach [id number] Conchisrosangela Serrano Notes Date Note Type Note Provider Name and Address Organization Details Recorded Time 05/21/2023 text/html tinnitus bilat. Hx of radium seeds as a child. No recent audio. COVID vax times 2. Jonathan Martino MD [address] [facility] [address] [facility] [address], [place], [address], [employer] 05/21/2023 11:58:48 09/15/2023 text/html Doing fine, compliant to medications, no side affects, here for follow up.States that she was in Urgent Care back in July for a foot infection. left foot. After seeing Nephrology she was started on Furosemideshe was treated with keflex Asthma- under control with inhalers, no coughMeds- Symbicort 2 puffs bid, proair prnHTN- under control with medsMeds- Losartan 100 mg qdDiabetes- diet [id number] 6.4 in 04/12 watching diet,not on any medsLast eye exam-2023 - Claribel Fierro Hyperlipidemia- under controlMeds- Rosuvastatin 10 mg qdDepression- under control with meds, sleeps fine, no anxiety symptoms, mood is stableMeds- Paroxetine 20 mg qdGERD - better with medsMeds- Esomeprazole prnGout- no flare up,Meds- allopurinol 300 mg dailyKidney disease--GFR better at 50 , Dr. Rodarte- trying to control diet, lost 3 lbOveractive bladder- using pads, meds did not help in the past,Osteopenia- dexa 12/08,H/o skin cancer- need to get exam from dermTinnitus- off and on no pain, no hearing loss Chanda Freire MD [address], [place], [address], [employer] 09/15/2023 10:25:18 01/01/2024 text/html Doing fine, compliant to medications, no side affects, here for follow up.PT IS FASTING ( [facility] ) Asthma- under control with inhalers, no coughMeds- Symbicort 2 puffs bid, proair prnHTN- under control with medsMeds- Losartan 100 mg qdDiabetes- diet [id number] 6.4 in 04/12 watching diet, lost some weightnot on any medsLast [facility] exam-2023 [facility] Hyperlipidemia- under control, labs dueMeds- Rosuvastatin 10 mg qdDepression- under control with meds, sleeps fine, no anxiety symptoms, mood is stableMeds- Paroxetine 20 mg qdGERD - better with medsMeds- Esomeprazole prnGout- no flare up,Meds- Allopurinol 300 mg dailyKidney disease--GFR better at 50 was 45 , Dr. GodwinObecruz- trying to control diet, lost 3 lbOveractive bladder- using pads, meds did not help in the past,Osteopenia- dexa 12/08,H/o skin cancer- need to get exam from dermTinnitus- off and on no pain, no hearing loss Chanda Freire MD [address] [facility] [address], [place], [address], [place] [facility] [employer] 01/01/2024 09:55:05 04/29/2024 text/html Doing fine, compliant to medications, no side affects, here for follow up.PT IS FASTING ( [facility] ) Asthma- under control with inhalers, no coughMeds- Symbicort 2 puffs bid, Proair prnHTN- under control with medsMeds- Losartan 100 mg qdDiabetes- diet [id number] 6.6 in 10/29/23 watching diet, lost some weightnot on any medsLast eye exam-2023 - Claribel - [place] Hyperlipidemia- under control, labs goodMeds- Rosuvastatin 10 mg qdDepression- under control with meds, sleeps fine, no anxiety symptoms, mood is stableMeds- Paroxetine 20 mg qdGERD - better with medsMeds- Esomeprazole prnGout- no flare up,Meds- Allopurinol 300 mg dailyKidney disease--GFR 35, was 50, Dr. Godwin Right knee pain- arthritis seen on x ray, getting worseObesity- trying to control diet, lost 4 lbOveractive bladder- using pads, meds did not help in the past,Osteopenia- dexa 12/08H/o skin cancer- need to get exam from derm, again discussedTinnitus- off and on no pain, no hearing loss Chanda Freire MD [address] [facility] [address], [place], [address], [place] [facility] [employer] 04/29/2024 10:09:01 OBGyn Episode No OBEpisode recorded.
--- OUTSIDE RECORDS SUMMARY | 2024-06-03 12:00 | XMS_ITS ---
Author Organization [facility] Address [address] [place] [address] Care Team Providers Care Senior Visual Designer Name Role Phone Suman Jauregui Unavailable [phone] REASON FOR VISIT lvm Encounters Encounter Location Date Provider Diagnosis [facility] [address] [place] [address] 04/05/2024 Suman Jauregui PLAN OF TREATMENT Next Appt Details Provider Name:Suman canchola, 06/07/2024 03:45:00 PM, [address] [facility] [address], [place], [address], Progress Notes * MIGUEL DUNNEDOB:1950 (73 yo F)Acc No.[id number]:04/05/2024 Progress Notes Patient: JEANIE DUNN Provider: SUMAN JAUREGUI M.D :1950 Age:73 Y Sex:Female Date:04/05/2024 Address:[address] [place] [address] Subjective: * Chief Complaints: * 1. Lvm. * Medical History: Objective: Assessment: Plan: * Treatment: * Billing Information: * Visit Code: * Procedure Codes: * Sign off status: Pending * Provider: SUMAN JAUREGUI M.D Date: 04/05/2024
--- OUTSIDE RECORDS SUMMARY | 2024-06-03 12:00 | XMS_ITS | Encounter Summary ---
Author Organization [facility] Address [address] [place] [address] Care Team Providers Care Wind Farm Operations Manager Name Role Phone Humble Han MD Primary Care Provider [phone] Encounter Details Date Type Department Care Team (Late st Contact Info) Description 09/24/2000 Outpatient Historical [facility] Primary Care - [place] [address] [place] [address] David Edgar, NO ADDRESS ON FILE Social History Tobacco Use Types Packs/Day Years Used Date Smoking Tobacco: Never Assessed Comments Unknown Sex and Gender Information Value Date Recorded Sex Assigned at Not on file Legal Sex Female 3:41 AM DISTRIBUTION ESTIMATOR Gender Identity Not on file Sexual Orientation Not on file documented as of this encounter Plan of Treatment Not on file documented as of this encounter Visit Diagnoses Not on filedocumented in this encounter Care Teams Wind Farm Operations Manager Relationship Specialty Start Date End Date Humble Han MD [address] [facility] [address] [place] [address] PCP - General Family Practice 02/26/12 documented as of this encounter
--- OUTSIDE RECORDS SUMMARY | 2024-06-03 12:00 | XMS_ITS | Encounter Summary ---
Author Organization [facility] Address [address] [place] [address] Care Team Providers Care Logistics Associate Name Role Phone Humble Han MD Primary Care Provider [phone] Encounter Details Date Type Department Care Team (Latest Contact Info) Description 04/28/2001 [facility] FILE SHORTNESS OF BREATH (Primary Dx) Social History Tobacco Use Types Packs/Day Years Used Date Smoking Tobacco: Never Assessed Comments Unknown Sex and Gender Information Value Date Recorded Sex Assigned at Not on file Legal Sex Female 3:41 AM TOWER DIRECTOR Gender Identity Not on file Sexual Orientation Not on file documented as of this encounter Plan of Treatment Not on file documented as of this encounter Visit Diagnoses Diagnosis Shortness of breath- Primary documented in this encounter Care Teams Logistics Associate Relationship Specialty Start Date End Date Humble Han MD [address] [place] [address] [address] [place] [address] PCP - General Family Practice 02/26/12 documented as of this encounter
--- OUTSIDE RECORDS SUMMARY | 2024-06-03 12:00 | XMS_ITS | Encounter Summary ---
Author Organization [facility] Address [address] [place] [address] Care Team Providers Care Pattern Ruler Name Role Phone Humble Han MD Primary Care Provider [phone] Encounter Details Date Type Department Care Team (Late st Contact Info) Description 08/31/1999 Outpatient Historical [facility] Primary Care - [place] [address] [place] [address] David Edgar DO NO ADDRESS ON FILE Social History Tobacco Use Types Packs/Day Years Used Date Smoking Tobacco: Never Assessed Comments Unknown Sex and Gender Information Value Date Recorded Sex Assigned at Not on file Legal Sex Female 3:41 AM MILLER HELPER Gender Identity Not on file Sexual Orientation Not on file documented as of this encounter Plan of Treatment Not on file documented as of this encounter Visit Diagnoses Not on filedocumented in this encounter Care Teams Pattern Ruler Relationship Specialty Start Date End Date Humble Han MD [address] [facility] [address] [place] [address] PCP - General Family Practice 02/26/12 documented as of this encounter
--- OUTSIDE RECORDS SUMMARY | 2024-06-03 12:00 | XMS_ITS | Encounter Summary ---
Author Organization [facility] Address [address] [place] [address] Care Team Providers Care Shift Supervisor Film Processing Name Role Phone Humble Han MD Primary Care Provider [phone] Encounter Details Date Type Department Care Team (Late st Contact Info) Description 09/16/2001 Outpatient Historical [facility] Primary Care - [place] [address] [place] [address] David Edgar, NO ADDRESS ON FILE Social History Tobacco Use Types Packs/Day Years Used Date Smoking Tobacco: Never Assessed Comments Unknown Sex and Gender Information Value Date Recorded Sex Assigned at Not on file Legal Sex Female 3:41 AM RESOLUTION ANALYST Gender Identity Not on file Sexual Orientation Not on file documented as of this encounter Plan of Treatment Not on file documented as of this encounter Visit Diagnoses Not on filedocumented in this encounter Care Teams Shift Supervisor Film Processing Relationship Specialty Start Date End Date Humble Han MD [address] [facility] [address] [place] [address] PCP - General Family Practice 02/26/12 documented as of this encounter
[2024-06-03 12:12] LABS: Add Urine Microscopic? YES; Appearance Urine Clear (Clear); Bacteria Urine None Seen /hpf; Bilirubin Urine Negative (Negative); Blood Urine 2+ (Negative); Color Urine Yellow (Yellow); Glucose Urine UA Negative (Negative); Ketones Urine Negative (Negative); Leukocyte Esterase Ur Negative LEU/UL (Negative); Nitrate Urine Negative (Negative); Non Pathogenic Casts 0-2; Protein Urine 3+ mg/dL (Negative); Specific Grav Ur 1.009 (1.001-1.035); Squamous Epithelial Cell Urine None Seen /hpf (Few); Urobilinogen Urine 0.2 mg/dL (<2.0); WBC Urine 0-5 /hpf (0-3); pH Urine 5.5 (5.0-9.0)
[2024-06-03 12:15] LABS: Albumin Level 3.7 g/dL (3.5-5.1); Anion Gap 7 mmol/L (4-12); Blood Urea Nitrogen 29 mg/dL (7-17); Calcium 8.9 mg/dL (8.4-10.2); Carbon Dioxide 26 mmol/L (22-30); Chloride 107 mmol/L (98-107); Estimated Glomerular Filt Rate 31; Glucose 88 mg/dL (65-110); Phosphorus 3.6 mg/dL (2.5-4.5); Potassium 4.3 mmol/L (3.4-5.0); Sodium 140 mmol/L (137-145); Uric Acid 7.5 mg/dL (2.5-7.5)
[2024-06-03 12:17] LABS: Creatinine Urine 38.6 mg/dL
[2024-06-03 12:34] LABS: Hypochromasia 1+; Platelet Estimate Adequate (Adequate); Schistocytes None Seen
[2024-06-03 13:01] LABS: Total Protein Urine Random 351 mg/dL; Ur Ttl Prot Creatinine Ratio 9.09 mg/mg (0-0.20)
== END 2024-06-03 10:54 | disposition home or self-care (01) ==
PROVIDERS: PCP Internal Medicine
DX: I12.9 Hypertensive chronic kidney disease with stage 1 through stage 4 chronic kidney disease, or unspecified chronic kidney disease (principal); E11.22 Type 2 diabetes mellitus with diabetic chronic kidney disease; N18.9 Chronic kidney disease, unspecified; E11.65 Type 2 diabetes mellitus with hyperglycemia; R60.9 Edema, unspecified; E55.9 Vitamin D deficiency, unspecified
CPT/HCPCS: 36415; 80069; 81001; 82570; 84156; 84550; 85025

== ENCOUNTER 2024-08-30 09:43 | Outpatient (CLI) | payer MEDICARE, SELFPAY ==
--- NOTE | ~2024-08-30 | DEXA_ITS ---
Bone Density Report Name: JEANIE DUNN Age: 74 Sex: Female Ethnicity: White Date of : 1950 Indication: postmenopausal; screening for osteoporosis; height loss; asthma or emphysema; hysterectomy; Referring Provider: TANI, CHANDA Nuno Study: Bone densitometry was performed. Exam Date: August 30, 2024 Accession number: [id number] Bone Density: Region BMD T-score Z-score Classification AP Spine(L1-L4) 0.985 -0.6 1.9 Normal Femoral Neck (Left) 0.620 -2.1 0.1 Osteopenia Total Hip (Left) 0.783 -1.3 0.5 Osteopenia Femoral Neck (Right) 0.654 -1.8 0.4 Osteopenia Total Hip (Right) 0.789 -1.3 0.6 Osteopenia Total Hip Mean 0.786 -1.3 0.6 Osteopenia World Health Organization criteria for BMD impression classify patients as: Normal (T-score at or above -1.0), Osteopenia (T-score between -1.0 and -2.5), or Osteoporosis (T-score at or below -2.5). 10-year Fracture Risk(1): Major Osteoporotic Fracture 13% Hip Fracture 3.4% Reported Risk Factors: [place] (), Neck BMD=0.620, BMI=32.5 (1) FRAX(R) Version 3.08. Fracture probability calculated for an untreated patient. Fracture probability may be lower if the patient has received treatment. Clinical Information Provided by Patient: Has used the following medications: Vitamin D Has the following medical conditions: Asthma or Emphysema, Hysterectomy Patient maximum height was 66.0 Menopause Age: 45 No regular weight bearing exercise Does not regularly consume dairy products Drinks caffeinated beverages Onset of menses at age 10 Number of children 2 Impression: The patient has low bone mass, based on the Left Femoral Neck T-score. The patient has an estimated ten-year risk of hip fracture of 3.4% and an estimated ten-year risk of major fracture of 13%, based on the WHO FRAX algorithm. Discussion: BONE DENSITY IS LOW AT ONE OR MORE SKELETAL SITES. THE PATIENT'S BMD AND CLINICAL RISK FACTORS CONTRIBUTE TO THIS PATIENT'S INCREASED RISK OF FRACTURE. This patient's lowest T-score is low at one or more skeletal sites. It meets the World Health Organization's (WHO) criteria for ?low bone mass? (T-score between -1.0 and -2.5). The patient's 10-year risk of hip fracture as calculated by FRAX exceeds the threshold where pharmacological therapy is recommended by the National Osteoporosis Foundation (NOF). However, all treatment decisions require clinical judgment and consideration of individual patient factors, including patient preferences, comorbidities, previous drug use, risk factors not captured in the FRAX model (e.g., frailty, falls, vitamin D deficiency, increased bone turnover, interval significant decline in bone density) and possible under or overestimation of fracture risk by FRAX. The patient should follow a healthful lifestyle (good nutrition with adequate calcium and vitamin D, and appropriate weight-bearing exercise). Follow-Up: Consider a repeat BMD and Vertebral Fracture Assessment (VFA) exam in 2 years or sooner if medically necessary, to reassess this patient's status. Reported by: ALEIDA on 08/30/2024 10:34:00 AM. Reviewed, dictated and finalized at location A.
--- NOTE | ~2024-08-30 | MM_ITS ---
EXAMINATION: MM screening anastacia BI w michelle HISTORY: Screening TECHNIQUE: Craniocaudal and mediolateral oblique 3-D tomosynthesis images were obtained and synthetic 2-D images were generated. CAD analysis was submitted and interpreted. COMPARISON: No prior mammogram is available for comparison at this institution. BREAST PARENCHYMAL COMPOSITION: Not dense: There are scattered areas of fibroglandular density. FINDINGS: There is no evidence of suspicious mass, calcification, or architectural distortion to sugg est malignancy in either breast. There has been no suspicious interval change. IMPRESSION: 1. No mammographic evidence of malignancy. 2. Recommend routine screening mammography in one year. BI-RADS Category 1: Negative Reviewed, dictated and finalized at location B.
--- OUTSIDE RECORDS SUMMARY | 2024-08-30 09:49 | XMS_ITS | Encounter Summary ---
Author Organization [facility] Address [address] [place] [address] Care Team Providers Care Therapeutic Case Manager Name Role Phone Humble Han MD Primary Care Provider [phone] Encounter Details Date Type Department Care Team (Late st Contact Info) Description 03/28/1998 Outpatient Historical [facility] Primary Care - [place] [address] [place] [address] David Edgar, NO ADDRESS ON FILE Social History Tobacco Use Types Packs/Day Years Used Date Smoking Tobacco: Never Assessed Comments Unknown Sex and Gender Information Value Date Recorded Sex Assigned at Not on file Legal Sex Female 3:41 AM LIMEROCK TOWER LOADER Gender Identity Not on file Sexual Orientation Not on file documented as of this encounter Plan of Treatment Not on file documented as of this encounter Visit Diagnoses Not on filedocumented in this encounter Care Teams Therapeutic Case Manager Relationship Specialty Start Date End Date Humble Han MD [address] [place] [address] PCP - General Family Practice 02/26/12 documented as of this encounter
--- OUTSIDE RECORDS SUMMARY | 2024-08-30 09:49 | XMS_ITS | Encounter Summary ---
Author Organization [facility] Address [address] [place] [address] Care Team Providers Care Wader Boot Top Assembler Name Role Phone Humble Han MD Primary Care Provider [phone] Encounter Details Date Type Department Care Team (Late st Contact Info) Description 04/11/1998 Outpatient Historical [facility] Primary Care - [place] [address] [place] [address] David Edgar, NO ADDRESS ON FILE Social History Tobacco Use Types Packs/Day Years Used Date Smoking Tobacco: Never Assessed Comments Unknown Sex and Gender Information Value Date Recorded Sex Assigned at Not on file Legal Sex Female 3:41 AM DIMENSIONAL ENGINEER Gender Identity Not on file Sexual Orientation Not on file documented as of this encounter Plan of Treatment Not on file documented as of this encounter Visit Diagnoses Not on filedocumented in this encounter Care Teams Wader Boot Top Assembler Relationship Specialty Start Date End Date Humble Han MD [address] [place] [address] PCP - General Family Practice 02/26/12 documented as of this encounter
--- OUTSIDE RECORDS SUMMARY | 2024-08-30 09:49 | XMS_ITS | Encounter Summary ---
Author Organization [facility] Address [address] [place] [address] Care Team Providers Care Tile Decorator Name Role Phone Humble Han MD Primary Care Provider [phone] Encounter Details Date Type Department Care Team (Latest Contact Info) Description 01/01/1999 [facility] Swelling of limb (Primary Dx) Social History Tobacco Use Types Packs/Day Years Used Date Smoking Tobacco: Never Assessed Comments Unknown Sex and Gender Information Value Date Recorded Sex Assigned at Not on file Legal Sex Female 3:41 AM METHODS STUDY ANALYST Gender Identity Not on file Sexual Orientation Not on file documented as of this encounter Plan of Treatment Not on file documented as of this encounter Visit Diagnoses Diagnosis Swelling of limb- Primary documented in this encounter Care Teams Tile Decorator Relationship Specialty Start Date End Date Humble Han MD [address] [place] [address] [address] [place] [address] PCP - General Family Practice 02/26/12 documented as of this encounter
--- OUTSIDE RECORDS SUMMARY | 2024-08-30 09:49 | XMS_ITS | Encounter Summary ---
Author Organization [facility] Address [address] [place] [address] Care Team Providers Care Lead Custodian Name Role Phone Humble Han MD Primary Care Provider [phone] Encounter Details Date Type Department Care Team (Late st Contact Info) Description 02/23/1999 Outpatient Historical [facility] Primary Care - [place] [address] [place] [address] David Edgar DO NO ADDRESS ON FILE Social History Tobacco Use Types Packs/Day Years Used Date Smoking Tobacco: Never Assessed Comments Unknown Sex and Gender Information Value Date Recorded Sex Assigned at Not on file Legal Sex Female 3:41 AM SCALE MODEL MAKER Gender Identity Not on file Sexual Orientation Not on file documented as of this encounter Plan of Treatment Not on file documented as of this encounter Visit Diagnoses Not on filedocumented in this encounter Care Teams Lead Custodian Relationship Specialty Start Date End Date Humble Han MD [address] [place] [address] PCP - General Family Practice 02/26/12 documented as of this encounter
--- OUTSIDE RECORDS SUMMARY | 2024-08-30 09:49 | XMS_ITS | Encounter Summary ---
Author Organization [facility] Address [address] [place] [address] Care Team Providers Care Field Examiner Name Role Phone Humble Han MD Primary Care Provider [phone] Encounter Details Date Type Department Care Team (Late st Contact Info) Description 04/03/1998 Outpatient Historical [facility] Primary Care - [place] [address] [place] [address] David Edgar, NO ADDRESS ON FILE Social History Tobacco Use Types Packs/Day Years Used Date Smoking Tobacco: Never Assessed Comments Unknown Sex and Gender Information Value Date Recorded Sex Assigned at Not on file Legal Sex Female 3:41 AM WEIGHT LOSS CONSULTANT Gender Identity Not on file Sexual Orientation Not on file documented as of this encounter Plan of Treatment Not on file documented as of this encounter Visit Diagnoses Not on filedocumented in this encounter Care Teams Field Examiner Relationship Specialty Start Date End Date Humble aHn MD [address] [place] [address] PCP - General Family Practice 02/26/12 documented as of this encounter
--- OUTSIDE RECORDS SUMMARY | 2024-08-30 09:49 | XMS_ITS | Encounter Summary ---
Author Organization [facility] Address [address] [place] [address] Care Team Providers Care Bindery Machine Operator Name Role Phone Humble Han MD Primary Care Provider [phone] Encounter Details Date Type Department Care Team (Late st Contact Info) Description 02/15/1999 Outpatient Historical [facility] Primary Care - [place] [address] [place] [address] David Edgar, NO ADDRESS ON FILE Social History Tobacco Use Types Packs/Day Years Used Date Smoking Tobacco: Never Assessed Comments Unknown Sex and Gender Information Value Date Recorded Sex Assigned at Not on file Legal Sex Female 3:41 AM BIOLOGY TEACHER Gender Identity Not on file Sexual Orientation Not on file documented as of this encounter Plan of Treatment Not on file documented as of this encounter Visit Diagnoses Not on filedocumented in this encounter Care Teams Bindery Machine Operator Relationship Specialty Start Date End Date Humble Han MD [address] [place] [address] PCP - General Family Practice 02/26/12 documented as of this encounter
--- OUTSIDE RECORDS SUMMARY | 2024-08-30 09:49 | XMS_ITS | Encounter Summary ---
Author Organization [facility] Address [address] [place] [address] Care Team Providers Care Textile Screen Maker Name Role Phone Humble Han MD Primary Care Provider [phone] Encounter Details Date Type Department Care Team (Late st Contact Info) Description 06/23/1998 Outpatient Historical [facility] Primary Care - [place] [address] [place] [address] David Edgar, NO ADDRESS ON FILE Social History Tobacco Use Types Packs/Day Years Used Date Smoking Tobacco: Never Assessed Comments Unknown Sex and Gender Information Value Date Recorded Sex Assigned at Not on file Legal Sex Female 3:41 AM PACKAGING SALES CONSULTANT Gender Identity Not on file Sexual Orientation Not on file documented as of this encounter Plan of Treatment Not on file documented as of this encounter Visit Diagnoses Not on filedocumented in this encounter Care Teams Textile Screen Maker Relationship Specialty Start Date End Date Humble Han MD [address] [place] [address] PCP - General Family Practice 02/26/12 documented as of this encounter
--- OUTSIDE RECORDS SUMMARY | 2024-08-30 09:49 | XMS_ITS | Encounter Summary ---
Author Organization [facility] Address [address] [place] [address] Care Team Providers Care Consultant Technology Name Role Phone Humble Han MD Primary Care Provider [phone] Encounter Details Date Type Department Care Team (Late st Contact Info) Description 03/25/1998 Outpatient [facility] Primary Care - [place] [address] [place] [address] Moises Martínez, DO * Social History Tobacco Use Types Packs/Day Years Used Date Smoking Tobacco: Never Assessed Comments Unknown Sex and Gender Information Value Date Recorded Sex Assigned at Not on file Legal Sex Female 3:41 AM BACKUP ADMINISTRATIVE COORDINATOR Gender Identity Not on file Sexual Orientation Not on file documented as of this encounter Plan of Treatment Not on file documented as of this encounter Visit Diagnoses Not on filedocumented in this encounter Care Teams Consultant Technology Relationship Specialty Start Date End Date Humble Han MD [address] [place] [address] PCP - General Family Practice 02/26/12 documented as of this encounter
--- OUTSIDE RECORDS SUMMARY | 2024-08-30 09:49 | XMS_ITS | Encounter Summary ---
Author Organization [facility] Address [address] [place] [address] Care Team Providers Care Master Automotive Technician Name Role Phone Humble Han MD Primary Care Provider [phone] Encounter Details Date Type Department Care Team (Late st Contact Info) Description 01/01/1999 Outpatient Historical [facility] Primary Care - [place] [address] [place] [address] David Edgar, NO ADDRESS ON FILE Social History Tobacco Use Types Packs/Day Years Used Date Smoking Tobacco: Never Assessed Comments Unknown Sex and Gender Information Value Date Recorded Sex Assigned at Not on file Legal Sex Female 3:41 AM OPENER VERIFIER PACKER CUSTOMS Gender Identity Not on file Sexual Orientation Not on file documented as of this encounter Plan of Treatment Not on file documented as of this encounter Visit Diagnoses Not on filedocumented in this encounter Care Teams Master Automotive Technician Relationship Specialty Start Date End Date Humble Han MD [address] [place] [address] PCP - General Family Practice 02/26/12 documented as of this encounter
--- OUTSIDE RECORDS SUMMARY | 2024-08-30 09:49 | XMS_ITS | Encounter Summary ---
Author Organization [facility] Address [address] [place] [address] Care Team Providers Care Freight Hustler Name Role Phone Humble Han MD Primary Care Provider [phone] Encounter Details Date Type Department Care Team (Late st Contact Info) Description 01/05/1999 Outpatient Historical [facility] Primary Care - [place] [address] [place] [address] David Edgar, NO ADDRESS ON FILE Social History Tobacco Use Types Packs/Day Years Used Date Smoking Tobacco: Never Assessed Comments Unknown Sex and Gender Information Value Date Recorded Sex Assigned at Not on file Legal Sex Female 3:41 AM HOT PRESS OPERATOR Gender Identity Not on file Sexual Orientation Not on file documented as of this encounter Plan of Treatment Not on file documented as of this encounter Visit Diagnoses Not on filedocumented in this encounter Care Teams Freight Hustler Relationship Specialty Start Date End Date Humble Han MD [address] [place] [address] PCP - General Family Practice 02/26/12 documented as of this encounter
--- OUTSIDE RECORDS SUMMARY | 2024-08-30 09:50 | XMS_ITS ---
Author Organization [facility] Address [address] [place] [address] Care Team Providers Care Rail Layer Name Role Phone Tato Hoda Unavailable [phone] Problems Problem Type SNOMED Code ICD Code Onset Dates Problem Status W/U Status Risk Notes Problem Chronic kidney disease stage 3A (disorder) (256886399) Chronic kidney disease, stage 3a (N18.31) Active confirmed Problem Proteinuria (89789909) Proteinuria, unspecified (R80.9) Active confirmed Problem Type 2 diabetes mellitus without complication, unspecified whether group home insulin use (E11.9) Active confirmed Encounters Encounter Location Date Provider Diagnosis [facility] [address] [facility] [address] [place] [address] 03/01/2024 Hoda Jauregui Chronic kidney disease, stage 3a N18.31 ; Vitamin D deficiency, unspecified E55.9 ; Type 2 diabetes mellitus without complication, unspecified whether group home insulin use E11.9 and Proteinuria, unspecified R80.9 Assessments Encounter Date Diagnosis (ICD Code) Assessment Notes Treatment Notes Treatment Clinical Notes Section Notes 03/01/2024 Chronic kidney disease, stage 3a (ICD-10 - N18.31) 03/01/2024 Vitamin D deficiency, unspecified (ICD-10 - E55.9) 03/01/2024 Type 2 diabetes mellitus without complication, unspecified whether extermination supervisor insulin use (ICD-10 - E11.9) 03/01/2024 Proteinuria, unspecified (ICD-10 - R80.9) Plan Of Treatment Next Appt Details Provider Name:Hoda canchola, 09/06/2024 02:45:00 PM, [address] [facility], [address], [place], [address], Progress Notes * SABIHA DUNN:1950 (74 yo F)Acc No.[id number]:03/01/2024 Progress Notes Patient: JEANIE FONTANEZ Provider: Lizzie JAUREGUI M.D :1950 A ge:73 Y S ex:Female Date:03/01/2024 Address:[address] [place] [address] Subjective: * Chief Complaints: * * Medical History: Objective: * Vitals: Assessment: * Assessment: 1. C hronic kidney disease, stage 3a - N18.31 (Primary) 2 . V itamin D deficiency, unspecified - E55.9 3 . T ype 2 diabetes mellitus without complication, unspecified whether group home insulin use - E11.9 4 . P roteinuria, unspecified - R80.9 Plan: * Treatment: * Billing Information: * Visit Code: * Procedure Codes: * Electronic signature of Ham Jauregui MD on 08/30/2024 at 09:49 AM CDT Sign off status: Pending * Provider: Lizzie JAUREGUI M.D Date: 0 03/01/2024 Generated for Henrry shafer/Cristobal/[place] on: 0 08/30/2024 09:49 AM CDT
--- OUTSIDE RECORDS SUMMARY | 2024-08-30 09:51 | XMS_ITS | Encounter Summary ---
Author Organization [facility] Address [address] [place] [address] Care Team Providers Care Title I Paraprofessional Name Role Phone Humble Han MD Primary Care Provider [phone] Encounter Details Date Type Department Care Team (Latest Contact Info) Description 07/31/2004 Outpatient Historical [facility] Edgar, David Garay, DO NO ADDRESS ON FILE UNSP ABNORMAL MAMMOGRAM (Primary Dx) Social History Tobacco Use Types Packs/Day Years Used Date Smoking Tobacco: Never Assessed Comments Unknown Sex and Gender Information Value Date Recorded Sex Assigned at Not on file Legal Sex Female 3:41 AM HOSPICE REGISTERED NURSE Gender Identity Not on file Sexual Orientation Not on file documented as of this encounter Plan of Treatment Not on file documented as of this encounter Visit Diagnoses Diagnosis Abnormal mammogram, unspecified- Primary documented in this encounter Care Teams Title I Paraprofessional Relationship Specialty Start Date End Date Humble Han MD [address] [place] [address] [address] [place] [address] PCP - General Family Practice 02/26/12 documented as of this encounter
--- OUTSIDE RECORDS SUMMARY | 2024-08-30 09:51 | XMS_ITS | Encounter Summary ---
Author Organization [facility] Address [address] [place] [address] Care Team Providers Care Plans Examiner Name Role Phone Humble Han MD Primary Care Provider [phone] Encounter Details Date Type Department Care Team (Late st Contact Info) Description 05/06/2001 Outpatient Historical [facility] Primary Care - [place] [address] [place] [address] David Edgar, NO ADDRESS ON FILE Social History Tobacco Use Types Packs/Day Years Used Date Smoking Tobacco: Never Assessed Comments Unknown Sex and Gender Information Value Date Recorded Sex Assigned at Not on file Legal Sex Female 3:41 AM GRILL COOK Gender Identity Not on file Sexual Orientation Not on file documented as of this encounter Plan of Treatment Not on file documented as of this encounter Visit Diagnoses Not on filedocumented in this encounter Care Teams Plans Examiner Relationship Specialty Start Date End Date Humble Han MD [address] [place] [address] PCP - General Family Practice 02/26/12 documented as of this encounter
--- OUTSIDE RECORDS SUMMARY | 2024-08-30 09:51 | XMS_ITS | Encounter Summary ---
Author Organization [facility] Address [address] [place] [address] Care Team Providers Care Multi Slide Machine Tender Name Role Phone Humble Han MD Primary Care Provider [phone] Encounter Details Date Type Department Care Team (Latest Contact Info) Description 07/17/2004 [facility]DRESS ON FILE SCREENING MAMM-MAILG NEOPL-OTHER (Primary Dx) Social History Tobacco Use Types Packs/Day Years Used Date Smoking Tobacco: Never Assessed Comments Unknown Sex and Gender Information Value Date Recorded Sex Assigned at Not on file Legal Sex Female 3:41 AM SFDC CONSULTANT Gender Identity Not on file Sexual Orientation Not on file documented as of this encounter Plan of Treatment Not on file documented as of this encounter Visit Diagnoses Diagnosis Other screening mammogram- Primary documented in this encounter Care Teams Multi Slide Machine Tender Relationship Specialty Start Date End Date Humble Han MD [address] [place] [address] [address] [place] [address] PCP - General Family Practice 02/26/12 documented as of this encounter
--- OUTSIDE RECORDS SUMMARY | 2024-08-30 09:51 | XMS_ITS | Encounter Summary ---
Author Organization [facility] Address [address] [place] [address] Care Team Providers Care Timber Management Professor Name Role Phone Humble Han MD Primary Care Provider [phone] Encounter Details Date Type Department Care Team (Late st Contact Info) Description 01/28/2002 Outpatient [facility] Primary Care - [place] [address] [place] [address] David Edgar, NO ADDRESS ON FILE Social History Tobacco Use Types Packs/Day Years Used Date Smoking Tobacco: Never Assessed Comments Unknown Sex and Gender Information Value Date Recorded Sex Assigned at Not on file Legal Sex Female 3:41 AM GRADUATE CIVIL ENGINEER Gender Identity Not on file Sexual Orientation Not on file documented as of this encounter Plan of Treatment Not on file documented as of this encounter Visit Diagnoses Not on filedocumented in this encounter Care Teams Timber Management Professor Relationship Specialty Start Date End Date Humble Han MD [address] [place] [address] PCP - General Family Practice 02/26/12 documented as of this encounter
--- OUTSIDE RECORDS SUMMARY | 2024-08-30 09:51 | XMS_ITS | Clinical Summary ---
Author Organization [facility] Address [address] [place] [address] Phone Care Team Providers Care Unhairer Name Role Phone Humble Han MD Primary Care Provider [phone] Allergies Active Allergy Reactions Criticality Noted Date [...] on file Legal Sex Female 3:41 AM ASSOCIATE PROFESSOR OF PSYCHOLOGY Gender Identity Not on file Sexual Orientation [...] CDT Respiratory Rate 16 02/26/2012 9:03 AM ASSOCIATE PROFESSOR OF PSYCHOLOGY Oxygen Saturation 95% 11/28/2012 9:28 AM CDT Inhaled Oxygen Concentration - - Weight 94.2 kg (207 lb 9.6 oz) 11/28/2012 9:28 A M CDT Height 167.6 cm (5' 6) 11/28/2012 9:28 AM CDT Body Mass Index 33.51 11/28/2012 9:28 AM CDT Plan of Treatment Health Maintenance Due Date Last Done Comments DTAP/TDAP/TD VACCINES (1 - Tdap) 07/20/1967 PNEUMOCOCCAL VACCINE 50+ YEARS (1 of 1 - PCV) 07/19/18 99 ZOSTER VACCINE (1 of 2) 1998 OSTEOPOROSIS SCREENING 2013 RSV VACCINE (60+ or ) (1 - 1-dose 75+ series) 07/20/2023 INFLUENZA VACCINE (#1) 2024 12/15/2012 Medical Devices Implanted Type Area Armhole Presser Device Identifier Shelf Expiration Date Model / Serial / Lot Log [id number] - Bladder Slings And Tapes - 1 - Gynecare Tvt Exact Tvtrl Implanted:Qty: 1 on 02/13/2011 at [facility] Sling Bilateral: Bladder [employer] 07/18/2011 TVTRL / / [id number] Advance Directives For more information, please contact: [phone] * Full Code (Latest Code Status on File) Date Activated Date Inactivated Comments 02/13/2011 1:41 PM 02/13/2011 8:04 PM * Full Code Date Activated Date Inactivated Comments 02/13/2011 11:18 AM 02/13/2011 1:41 PM Care Teams Unhairer Relationship Specialty Start Date End Date Humble Han MD [address] [place] [address] PCP - General Family Practice 02/26/12
--- OUTSIDE RECORDS SUMMARY | 2024-08-30 09:51 | XMS_ITS | Encounter Summary ---
Author Organization [facility] Address [address] [place] [address] Care Team Providers Care Pottery Striper Name Role Phone Humble Han MD Primary Care Provider [phone] Encounter Details Date Type Department Care Team (Late st Contact Info) Description 05/13/2001 Outpatient Historical [facility] Primary Care - [place] [address] [place] [address] David Edgar, NO ADDRESS ON FILE Social History Tobacco Use Types Packs/Day Years Used Date Smoking Tobacco: Never Assessed Comments Unknown Sex and Gender Information Value Date Recorded Sex Assigned at Not on file Legal Sex Female 3:41 AM INFORMATICS PHYSICIAN Gender Identity Not on file Sexual Orientation Not on file documented as of this encounter Plan of Treatment Not on file documented as of this encounter Visit Diagnoses Not on filedocumented in this encounter Care Teams Pottery Striper Relationship Specialty Start Date End Date Humble Han MD [address] [place] [address] PCP - General Family Practice 02/26/12 documented as of this encounter
--- OUTSIDE RECORDS SUMMARY | 2024-08-30 09:51 | XMS_ITS | Encounter Summary ---
Author Organization [facility] Address [address] [place] [address] Care Team Providers Care Real Estate Coordinator Name Role Phone Humble Han MD Primary Care Provider [phone] Encounter Details Date Type Department Care Team (Late st Contact Info) Description 10/28/2003 Outpatient Historical [facility] Primary Care - [place] [address] [place] [address] David Edgar DO NO ADDRESS ON FILE Social History Tobacco Use Types Packs/Day Years Used Date Smoking Tobacco: Never Assessed Comments Unknown Sex and Gender Information Value Date Recorded Sex Assigned at Not on file Legal Sex Female 3:41 AM HAZARD MITIGATION OFFICER Gender Identity Not on file Sexual Orientation Not on file documented as of this encounter Plan of Treatment Not on file documented as of this encounter Visit Diagnoses Not on filedocumented in this encounter Care Teams Real Estate Coordinator Relationship Specialty Start Date End Date Humble Han MD [address] [place] [address] PCP - General Family Practice 02/26/12 documented as of this encounter
--- OUTSIDE RECORDS SUMMARY | 2024-08-30 09:51 | XMS_ITS | Encounter Summary ---
Author Organization [facility] Address [address] [place] [address] Care Team Providers Care Asp Net Mvc Developer Name Role Phone Humble Han MD Primary Care Provider [phone] Encounter Details Date Type Department Care Team (Late st Contact Info) Description 10/10/2003 Outpatient Historical [facility] Primary Care - [place] [address] [place] [address] David Edgar, NO ADDRESS ON FILE Social History Tobacco Use Types Packs/Day Years Used Date Smoking Tobacco: Never Assessed Comments Unknown Sex and Gender Information Value Date Recorded Sex Assigned at Not on file Legal Sex Female 3:41 AM DIRECTOR CARDIOVASCULAR Gender Identity Not on file Sexual Orientation Not on file documented as of this encounter Plan of Treatment Not on file documented as of this encounter Visit Diagnoses Not on filedocumented in this encounter Care Teams Asp Net Mvc Developer Relationship Specialty Start Date End Date Humble Han MD [address] [place] [address] PCP - General Family Practice 02/26/12 documented as of this encounter
--- OUTSIDE RECORDS SUMMARY | 2024-08-30 09:51 | XMS_ITS | Encounter Summary ---
Author Organization [facility] Address [address] [place] [address] Care Team Providers Care Network Systems Engineer Name Role Phone Humble Han MD Primary Care Provider [phone] Encounter Details Date Type Department Care Team (Late st Contact Info) Description 03/19/2004 Outpatient Historical [facility] Primary Care - [place] [address] [place] [address] Audra Burgos MD NO ADDRESS ON FILE Social History Tobacco Use Types Packs/Day Years Used Date Smoking Tobacco: Never Assessed Comments Unknown Sex and Gender Information Value Date Recorded Sex Assigned at Not on file Legal Sex Female 3:41 AM SENIOR PUBLICATIONS SPECIALIST Gender Identity Not on file Sexual Orientation Not on file documented as of this encounter Plan of Treatment Not on file documented as of this encounter Visit Diagnoses Not on filedocumented in this encounter Care Teams Network Systems Engineer Relationship Specialty Start Date End Date Humble Han MD [address] [place] [address] PCP - General Family Practice 02/26/12 documented as of this encounter
--- OUTSIDE RECORDS SUMMARY | 2024-08-30 09:51 | XMS_ITS | Encounter Summary ---
Author Organization [facility] Address [address] [place] [address] Care Team Providers Care Personal Injury Legal Assistant Name Role Phone Humble Han MD Primary Care Provider [phone] Encounter Details Date Type Department Care Team (Latest Contact Info) Description 05/13/2001 [facility] FILE SCREENING MAMM-MAILG NEOPL-OTHER (Primary Dx) Social History Tobacco Use Types Packs/Day Years Used Date Smoking Tobacco: Never Assessed Comments Unknown Sex and Gender Information Value Date Recorded Sex Assigned at Not on file Legal Sex Female 3:41 AM TAPE DECK INSTALLER Gender Identity Not on file Sexual Orientation Not on file documented as of this encounter Plan of Treatment Not on file documented as of this encounter Visit Diagnoses Diagnosis Other screening mammogram- Primary documented in this encounter Care Teams Personal Injury Legal Assistant Relationship Specialty Start Date End Date Humble Han MD [address] [place] [address] [address] [place] [address] PCP - General Family Practice 02/26/12 documented as of this encounter
--- OUTSIDE RECORDS SUMMARY | 2024-08-30 09:51 | XMS_ITS | Encounter Summary ---
Author Organization [facility] Address [address] [place] [address] Care Team Providers Care Directional Driller Name Role Phone Humble Han MD Primary Care Provider [phone] Encounter Details Date Type Department Care Team (Late st Contact Info) Description 01/11/2002 Outpatient Historical [facility] Primary Care - [place] [address] [place] [address] David Edgar, NO ADDRESS ON FILE Social History Tobacco Use Types Packs/Day Years Used Date Smoking Tobacco: Never Assessed Comments Unknown Sex and Gender Information Value Date Recorded Sex Assigned at Not on file Legal Sex Female 3:41 AM CISCO ENGINEER Gender Identity Not on file Sexual Orientation Not on file documented as of this encounter Plan of Treatment Not on file documented as of this encounter Visit Diagnoses Not on filedocumented in this encounter Care Teams Directional Driller Relationship Specialty Start Date End Date Humble Han MD [address] [place] [address] PCP - General Family Practice 02/26/12 documented as of this encounter
--- OUTSIDE RECORDS SUMMARY | 2024-08-30 09:51 | XMS_ITS | Encounter Summary ---
Author Organization [facility] Address 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
--- OUTSIDE RECORDS SUMMARY | 2024-08-30 09:51 | XMS_ITS | Encounter Summary ---
Author Organization [facility] Address 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
--- OUTSIDE RECORDS SUMMARY | 2024-08-30 09:51 | XMS_ITS | Encounter Summary ---
Author Organization [facility] Address 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 Gender Identity Not on file Sexual [...] CDT) TSH 1.70 0.27 - 4.20 uU/mL [facility] Blood specimen (specimen) 06/16/2007 9:15 AM CDT 06/16/2007 11:08 AM CDT David Edgar DO CHEMISTRY ORDERABLES Final Result [facility] [address] [place] [address] * CBC WITH DIFFERENTIAL (06/16/2007 9:15 AM CDT) RBC 4.50 3.90 - 4.90 M/uL [facility] MCHC 31.9 31.5 - 35.5 % [facility] MCV 90.7 82.0 - 99.0 fL [facility] PLATELETS 286 140 - 350 K/uL [facility] HEMOGLOBIN 13.0 11.8 - 14.8 g/dL [facility] RDW 13.0 11.5 - 14.5 % [facility] WBC 8.8 4.0 - 9.8 K/uL [facility] MCH 28.9 27.2 - 32.6 pg [facility] MPV 10.9 9.3 - 12.4 fL [facility] HEMATOCRIT 40.8 35.5 - 44.0 % [facility] RDW-STDEV 42.6 37.1 - 48.7 fL [facility] MONOCYTES 8 3 - 13 % [facility] MONOCYTE ABSOLUTE 0.67 0.10 - 1.30 K/uL [facility] NEUTROPHILS 60 45 - 70 % [facility] NEUTROPHIL ABSOLUTE 5.25 1.90 - 7.00 K/uL [facility] EOSINOPHILS 7 0 - 7 % [facility] EOSINOPHIL ABSOLUTE 0.58 0.00 - 0.70 K/uL [facility] LYMPHOCYTES 25 16 - 45 % [facility] LYMPHOCYTE ABSOLUTE 2.17 0.70 - 4.50 K/uL [facility] BASOPHILS 1 0 - 2 % [facility] BASOPHILS ABSOLUTE 0.08 0.00 - 0.20 K/uL [facility] Blood specimen (specimen) 06/16/2007 9:15 AM CDT 06/16/2007 11:08 AM CDT David Edgar DO HEMATOLOGY ORDERABLES Edite d Performing Organization Address City/[facility]/ZIP Co de Phone Number INTERFACE SYSTEM Refer to clinic/hospital department [facility] [address] [place] [address] * HEPATIC FUNCTION PANEL (06/16/2007 9:15 AM CDT) BILIRUBIN DIRECT 0.1 0.0 - 0.3 mg/dL [facility] TOTAL PROTEIN 7.2 6.3 - 8.6 g/dL [facility] ALT 13 0 - 31 U/L [facility] BILIRUBIN TOTAL 0.2 0.2 - 1.0 mg/dL [facility] ALBUMIN 3.9 3.4 - 4.8 g/dL [facility] AST 21 12 - 32 U/L [facility] ALKALINE PHOSPHATASE 69 35 - 104 U/L [facility] Blood specimen (specimen) 06/16/2007 9:15 AM CDT 06/16/2007 11:08 AM CDT us David Edgar DO CHEMISTRY ORDERABLES Final Result Performing Organization Address City/[facility]/ZIP Co de Phone Number [facility] [address] [place] [address] * (ABNORMAL) LIPID PANEL (06/16/2007 9:15 AM CDT) TRIGLYCERIDE 137 10 - 149 mg/dL [facility] CHOL/HDL RATIO 4.1 2.0 - 5.0 [facility] HDL 53 40 - 59 mg/dL [facility] CHOLESTEROL 215(H) 100 - 199 mg/dL [facility] LDL CALCULATED 135(H) <=99 mg/dL [facility] LIPID PANEL COMMENT See Below [facility] Comment: The adult ATP and pediatric NCEP classifications for lipids are available on the [facility] Intranet at: [email or web address] Select: Lab Policies and Procedures,Current Select: Lipid Panel Interpretation Blood specimen (specimen) 06/16/2007 9:15 AM CDT 06/16/2007 11:08 AM CDT David Edgar DO CHEMISTRY ORDERABLES Edited [facility] [address] [place] [address] * (ABNORMAL) BASIC METABOLIC PANEL (06/16/2007 9:15 AM CDT) GLUCOSE 104(H) 65 - 99 mg/dL [facility] SODIUM 139 135 - 145 mmol/L [facility] CALCIUM 8.9 8.4 - 10.2 mg/dL [facility] CO2 26 22 - 30 mmol/L [facility] CREATININE 1.05(H) 0.51 - 0.95 mg/dL [facility] POTASSIUM 3.9 3.5 - 4.9 mmol/L [facility] BUN 15 6 - 20 mg/dL [facility] CHLORIDE 102 96 - 108 mmol/L [facility] GFR, >60 >=60 mL/min/1. 7 sq meter [facility] GFR 54(L) >=60 mL/min/1. 7 sq meter [facility] Comment: Estimated GFR rate interpretative information for both Americans and non- Americans is available on the [facility] Intranet at: [email or web address] Select: Lab Policies and Procedures Select: Reference Ranges - GFR Blood specimen (specimen) 06/16/2007 9:15 AM CDT 06/16/2007 11:08 AM CDT David Edgar DO CHEMISTRY ORDERABLES Edited [facility] [address] [place] [address] documented in this encounter Visit Diagnoses Diagnosis Other and unspecified hyperlipidemia documented in this encounter Care Teams Communications Senior Associate Relationship Specialty Start Date End Date Humble Han MD [address] [place] [address] PCP - General Family Practice 02/26/12 documented as of this encounter
--- OUTSIDE RECORDS SUMMARY | 2024-08-30 09:51 | XMS_ITS | Patient Health Record ---
Author Organization [facility] Address [address] [place] [address] Care Team Providers Care Buzzsaw Operator Name Role Phone Hoda Godwin Unavailable [phone] Reason For Referral No Information Medications Medication SIG (Take, Route, Frequency, Duration) Notes Start Date End Date Status amLODIPine Besylate 5 MG 1 tablet Orally Once a day; Duration: 90 days Active Esomeprazole Magnesium 40 MG TAKE 1 CAPSULE BY MOUTH EVERY DAY; Duration: 90 Active NexIUM 40 MG 1 capsule Orally Onc e a day; Duration: 90 days 07/01/2022 Active Losartan Potassium 100 MG 1 tablet Orall y Once a day; Duration: 90 days 03/01/2024 Active NexIUM 40 MG 1 capsule Orally Onc e a day; Duration: 90 days 10/29/2021 Active Vitamin D (Ergocalciferol) 1.25 MG (77794 UT) TAKE 1 CAPSULE BY MOUTH EVERY 2 WEEKS 90 DAYS; Duration: 90 days Active Problems Problem Type SNOMED Code ICD Code Onset Dates Problem Status W/U Status Risk Notes Problem Secondary hyperparathyroidism (66704127) Secondary hyperparathyroi dism, not elsewhere classified (E21.1) Active confirmed Problem Vitamin D deficiency (91889494) Vitamin D deficiency, unspecified (E55.9) Active confirmed Problem Hyperuricemia withou t signs of inflammatory arthritis and tophaceous disease (471794544) 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 inflammatory 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) Active confirmed Problem Essential hypertensi on (68416274) Essential (primary) hypertension (I10) Active confirmed Problem Chronic kidney disea se stage 2 (846844425) Chronic kidney disease, stage 2 (mild) (N18.2) Active confirmed Problem Edema (81211264) Edema, unspecified (R60.9) Active confirmed Problem Proteinuria (14690199) Proteinur ia, unspecified (R80.9) Active confirmed Problem Type II diabetes mellitus without complication (249041247) Type 2 diabetes mellitus without complication, unspecified whether detention insulin use (E11.9) Active confirmed Problem Chronic kidney disea se stage 3 (disorder) (372473565) Chronic kidney disease, stage 3 unspecified (N18.30) Active confirmed Problem Chronic kidney disea se stage 3A (disorder) (578567417) Chronic kidney disease, stage 3a (N18.31) Active confirmed Encounters Encounter Location Date Provider Diagnosis [facility] [address] [address] 11/03/2023 Hoda Tato Chronic kidney disease, stage 2 (mild) N18.2 ; Edema, unspecified R60.9 ; Vitamin D deficiency, unspecified E55.9 and Secondary hyperparathyroidism, not elsewhere classified E21.1 [facility] [address] [address] 03/01/2024 Hoda Tato Chronic kidney disease, stage 3a N18.31 ; Vitamin D deficiency, unspecified E55.9 ; Type 2 diabetes mellitus without complication, 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 whether 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 E11.9 and Proteinuria, unspecified R80.9 [facility] [address] [address] 06/07/2024 Hoda [facility] [place] [facility] [address] [place] [address] 11/03/2023 [facility] [place] [facility] [address] [place] [address] 03/01/2024 Hoda Tato [facility] [place] [facility] [address] [place] [address] 03/01/2024 Hoda Tato [facility] [place] [facility] [address] [place] [address] 06/07/2024 Hoda Tato [facility] [place] [facility] [address] [place] [address] 06/09/2024 Hoda Tato [facility] [place] [facility] [address] [place] [address] 2024 Hoda Tato [facility] [place] [facility] [address] [place] [address] 08/16/2024 Hoda Godwin [facility] [place] [facility] [address] [place] [address] 08/16/2024 Hoda Godwin Assessments Encounter Date Diagnosis (ICD Code) Assessment Notes Treatment Notes Treatment Clinical Notes Section Notes 11/03/2023 Chronic kidney disease, stage 2 (mild) (ICD-10 - N18.2) 03/01/2024 Chronic kidney disease, stage 3a (ICD-10 - N18.31) 11/03/2023 Edema, unspecified (ICD-10 - R60.9) 03/01/2024 Vitamin D deficiency, unspecified (ICD-10 - E55.9) 11/03/2023 Vitamin D deficiency, unspecified (ICD-10 - E55.9) 03/01/2024 Type 2 diabetes mellitus without complication, unspecified whether detention insulin use (ICD-10 - E11.9) 03/01/2024 Proteinuria, unspecified (ICD-10 - R80.9) 11/03/2023 Secondary hyperparathyroid ism, not elsewhere classified (ICD-10 - E21.1) Plan Of Treatment Next Appt Details Provider Name:Hoda canchola, 09/06/2024 02:45:00 PM, [address], [facility] [address], [place], [address],
--- OUTSIDE RECORDS SUMMARY | 2024-08-30 09:51 | XMS_ITS | Encounter Summary ---
Author Organization [facility] Address 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 Gender Identity Not on file Sexual [...] AM CDT Narrative 06/11/2007 7:28 AM CDT [address] [address] Admit Date: 06/09/2007 JEANIE DUNN Sex: F Admit Prov: DAVID GRUBBS Date: 1950 Primary Care Prov: DAVID GRUBBS CMRN: [id number] [id number] Ordering Prov: DAVID GRUBBS Accession Number: [id number] Interpretation BILATERAL FULL FIELD DIGITAL SCREENING MAMMOGRAM [...] AMK Procedure Note Sara Higgins - 06/11/2007 [facility] [address] [place], [place] [address] Admit Date: 06/09/2007 DUNNMELITAJEANIE Sex: F Admit Prov: DAVID GRUBBS Date: 1950 Primary Care Prov: DAVID GRUBBS CMRN: [id number] [id number] [facility] Ordering Prov: DAVID GRUBBS Interpretation [...] mammogram documented in this encounter Care Teams Upper Extremity Surgeon Relationship Specialty Start Date End Date Humble Han MD [address] [facility] [address] [place] [address] PCP - General Family Practice 02/26/12 documented as of this encounter
--- OUTSIDE RECORDS SUMMARY | 2024-08-30 09:51 | XMS_ITS | Encounter Summary ---
Author Organization [facility] Address 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
--- OUTSIDE RECORDS SUMMARY | 2024-08-30 09:51 | XMS_ITS | Encounter Summary ---
Author Organization [facility] Address 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
--- OUTSIDE RECORDS SUMMARY | 2024-08-30 09:51 | XMS_ITS | Encounter Summary ---
Author Organization [facility] Address [address] [place] [address] Care Team Providers Care Beauty School Instructor Name Role Phone Humble Han MD Primary Care Provider [phone] Encounter Details Date Type Department Care Team (Late st Contact Info) Description 09/16/2001 Outpatient Historical [facility] Primary Care - [place] [address] [place] [address] David Edgar, NO ADDRESS ON FILE Social History Tobacco Use Types Packs/Day Years Used Date Smoking Tobacco: Never Assessed Comments Unknown Sex and Gender Information Value Date Recorded Sex Assigned at Not on file 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
--- OUTSIDE RECORDS SUMMARY | 2024-08-30 09:51 | XMS_ITS | Encounter Summary ---
Author Organization [facility] Address 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
--- OUTSIDE RECORDS SUMMARY | 2024-08-30 09:51 | XMS_ITS | Data Portability ---
Author Organization [place] [facility], Main Office Address [address] [place] [address] Care Team Providers Care Cooker Cleaner Name Role Phone CHANDA DURHAM Primary Care Provider CHANDA DURHAM Referring Provider CHANDA DURHAM Primary Care Provider [phone] Assessment Encounter Date Assessment Date Assessment LastModified [...] she should talk to her PCP and Still Operator Gin. Last A1C October 2023 was 6.4% and has not been well controlled, so advised against a cortisone injection. Follow Up: 6-8 weeks after a course of PT. If no improvement, we can try gel injections. Call before follow up appointment so we can order gel injection. All questions were answered. Patient verbalized understanding of the treatment plan [email or web address] Not available 05/24/2024 13:18:05 07/26/2024 07/26/2024 74-year-old femjesika cannon presents for follow-up of her right knee. She had some pain that we tried a course of physical therapy without significant improvement. She reports feeling about the same, rated as 8/10. She is also taking Tylenol and using Voltaren. Her last A1c level was around 6. She has tenderness palpation over the mediolateral joint line. Range of motion 0-120. Stable ligaments. We discussed that for her arthritis, we will continue conservative management. The next steps would be consider injection, either cortisone or gel. We discussed the pros and cons of each of those. She wanted proceed with the cortisone injection today and tolerated well. We will see her back in 2 months for recheck. At that point we can either plan to repeat cortisone injections every 3-4 months, or if it is not working we will switch to getting authorization for gel injections. She is in agreement with the plan. [email or web address] Not available 07/27/2024 16:59:09 Plan of Treatment Reminders Order Date Submit Date Provider Last Modified By Organization Details Last Modified Time Details Appointments Any 15 2024 09:00A Judson Durham MD Not available Not available Not available Any 5 2024 09:45A Judson Salazar MD Not available Not available Not available Lab lipid panel, serum [facility]23 [facility] [address] [place], [address], 02/25/2024 17:12:31 lipid panel, serum [email or web address], [address] [place], [address], 09/30/2023 08:43:35 Referral physical therapist referral - Please contact pt to schedule apt for R knee. Thanks 2024 025 [facility] [place], [address], [place], [address], 06/14/2024 16:45:19 orthopedi c surgeon referral - Please call patient to schedule an appointme nt. Thank you. 2024 025 KRYSTLE Salazar MD, [address] [facility], [place], [address], 05/24/2024 13:20:03 Procedures injection /aspirati on joint/bur sa (PROC) 2024 025 [email or web address] In-Office Order, Internal Use Only DO Not Attach Compendium DO Not Attach Compendium, Do Not Delete/merge, [id number] 07/26/2024 12:11:09 Surgeries None recorded. Imaging MAMMO, screening , bilateral - Please call patient to schedule. [address] (Mammography) , [address], [place], [address], 02/16/2024 14:59:46 XR, knee [address] [facility], [address], [place], [address], 02/02/2024 14:53:08 DEXA [address] (Imaging), [address] [facility] [address], [address], 02/02/2024 14:53:08 Medication Orders bupivacai ne HCl 0.5 % (5 mg/mL) injection solution 2024 025 [email or web address] [facility] [address] In [facility], [address], [place], [address], 07/27/2024 13:12:00 Kenalog 10 mg/mL suspensio n for injection 2024 025 [email or web address] [facility] [address], [address], 07/27/2024 13:12:00 clobetaso l 0.05 % topical ointment 2023 024 [address] [address], [address], 09/15/2023 10:24:18 Patient TargetsNo targets recorded. Patient Instructions Encounter Date Encounter Id Patient Instructions Last Modified By Organization Details Last Modified Time 09/15/2023 [id number] Exercise discussed, physical activity handouts given Dietary counseling given, nutrition handouts given Not available 09/15/2023 09:54:49 01/01/2024 [id number] Exercise discussed, physical activity handouts given Dietary counseling given, nutrition handouts given Not available 01/01/2024 09:30:34 04/29/2024 [id number] Exercise discussed, physical activity handouts given Dietary counseling given, nutrition handouts given Not available 04/29/2024 09:45:18 Reason for Referral Orthopedic Surgeon Referral for Pain of right knee joint Please call patient to schedule an appointment. Thank you. Referring Physician: Chanda Durham, Internal Medicine, Encounter Date: 04/29/2024 Physical Therapist Referral for Pain of right knee joint R knee Please contact pt to schedule apt for R knee. Thanks Referring Physician: Omid Wu, Orthopedic Surgery, Encounter Date: 05/24/2024 Results Created Date Observation Date Name Description Value Unit Range Abnormal Flag Note LastModifiedBy Organization Detail LastModifiedTime 03/31/1903/22/2024 XR, knee No observ ation record ed. [email or web address] [facility] [address], [place], [address], 03/31/2024 15:49:08 Result Notes None recorded. Problems Name Problem SNOMED Code Status Onset Date Resolution Date Notes Provider Name and Address Organization Details Recorded Time Bilateral tinnitus 14163648899 02 Active 2022 Not Available [facility] 4 10:58:01 Acute sinusitis 41835367 Active 2022 Not Available [facility] 4 10:58:01 Pruritic rash 49116026 Active 2023 Chanda Durham MD [address], [place], [address] , [employer] 4 10:22:06 Pain of right knee joint 84079349884 4100 Active 2023 Chanda Durham MD [address], [address], [place], [address] , [employer] [facility] 4 09:50:09 Osteoarth ritis of right knee joint 25093220821 9100 Active 2024 Omid Wu PA-C [address], [place], [address] , [employer] [facility] 5 13:18:17 Pain of right knee region 59108906518 4105 Active 2024 DAVID Sarmiento [facility], [employer] [facility] [employer] [facility] 5 11:35:19 Chronic obstructi ve pulmonary disease 13092983 Completed Not Available [facility] 3 04:47:35 Chronic depressio n 894379136 Active Not Available [facility] 4 10:58:01 Asthma 579141610 Active Not Available [facility] 4 10:58:01 Gastroeso phageal reflux disease 586289039 Active Not Available [facility] 4 10:58:01 Screening mammograp hy Completed 202111/09/2021 Not Available [facility] 3 04:47:36 Adult health examinati on Active 2021 Not Available [facility] 4 10:58:01 Screening for osteoporo sis Completed 202103/07/2022 Not Available [facility] 3 04:47:36 Osteopeni a 681697398 Active 2021 Not Available [facility] 4 10:58:01 Malignant neoplasm of skin 206188205 Active 2016 Not Available [facility] 4 10:58:01 Obesity 032377479 Active Not Available [facility] 4 10:58:01 Upper respirato ry infection 10630179 Completed Not Available [facility] 3 04:47:36 Hyperlipi demia 92758749 Active Not Available [facility] 4 10:58:01 Essential hypertens ion 35132787 Active Not Available [facility] 4 10:58:01 Allergic rhinitis 35978295 Active Not Available [facility] 4 10:58:01 Diabetes mellitus 60998524 Active 2021 Not Available [facility] 4 10:58:01 Overactiv e urinary bladder 110034698 Active 2020 Not Available [facility] 4 10:58:01 COVID-19 776269023 Completed 202111/09/2021 Not Available [facility] 3 04:47:37 Fatigue 30694426 Active 2021 Not Available [facility] 4 10:58:01 Gout 37818932 Active Not Available [facility] 4 10:58:01 Kidney disease 19446672 Active Not Available [facility] 4 10:58:01 Disorder of skin 80251707 Completed Not Available [facility] 3 04:47:37 Bilateral cataracts 85150581 Active 2022 Not Available [facility] 4 10:58:01 Problem Notes Documentation Provider Name and Address Organization Details Recorded Time Orthopedic Surgeon Consult Note : [facility] [address] [place] [id number], Dianne (id #[id number], : 1950) Documents sent [...] received this fax in error, please visit [email or web address] to notify the sender and confirm that the information will be destroyed. If you do not have internet access, please call to notify the sender and confirm that the information will be destroyed. Thank you for your attention and cooperation. [ID:[id number]] , Date: 05/24/2024RE: Earnest Camacho MD, I [...] Sincerely, Electronically Signed by: OMID WU PA-C, [facility] Assessment/PlanHPI:73 year old female presents today for [...] she should talk to her PCP and Still Operator Gin. Last A1C October 2023 was 6.4% and has not been well controlled, so advised against a cortisone injection. Follow Up:6-8 weeks after a course of PT. If no improvement, we can try gel injections. Call before follow up appointment so we can order gel injection. All questions were answered. Patient verbalized understanding of the treatment plan 1. Pain of right knee zankaO53.561: Pain in right knee PHYSICAL THERAPIST REFERRAL - Schedule Within: provider's discretion Note to Provider: Please contact pt to schedule apt for R knee. Thanks Evaluate & Treat: Per PT Side: RIGHT Reason for Referral: R knee # of requested visits: 12 2. Osteoarthritis of right knee oncdhG50.11: Unilateral primary osteoarthritis, right knee Return to Office Jil Salazar MD for Any 5 at [facility] on 07/26/2024 at 10:35 AM Chanda Durham MD for Any 15 at [facility] Internal Med [facility] on 08/30/2024 at 08:45 AM Chanda Durham MD [address] [facility] [address], [place], [address], [facility] 06/03/2024 12:06:30 Orthopedic Surgeon Consult Note : [facility] [address] [facility], [facility] [id number], Dianne (id #[id number], : 1950) Documents sent [...] received this fax in error, please visit [email or web address] to notify the sender and confirm that the information will be destroyed. If you do not have internet access, please call to notify the sender and confirm that the information will be destroyed. Thank you for your attention and cooperation. [ID:[id number]] , Date: 07/27/2024RE: Earnest Camacho MD, I would like to thank you for referring Conchis Zach to me for consultation and evaluation of Right knee pain , on 07/26/2024. I have enclosed a copy of the office assessment and plan for your records. Once again, thank you for allowing me to participate in the care of this patient. Sincerely, Electronically Signed by: JIL SALAZAR MD Assessment/[id number] female presents for follow-up of her right knee. She had some pain that we tried a course of physical therapy without significant improvement. She reports feeling about the same, rated as 8/10. She is also taking Tylenol and using Voltaren. Her last A1c level was around 6. She has tenderness palpation over the mediolateral joint line. Range of motion 0-120. Stable ligaments. We discussed that for her arthritis, we will continue conservative management. The next steps would be consider injection, either cortisone or gel. We discussed the pros and cons of each of those. She wanted proceed with the cortisone injection today and tolerated well. We will see her back in 2 months for recheck. At that point we can either plan to repeat cortisone injections every 3-4 months, or if it is not working we will switch to getting authorization for gel injections. She is in agreement with the plan. 1.Right knee pain, unspecified tcavfxjxwxC51.561: Pain in right knee bupivacaine HCl 0.5 % (5 mg/mL) injection solution - Take 20 mg by injection route. Quantity: (20) mg Lot #: [id number] Route: Injection Exp Date: 01/16/2025 Administered Kenalog 10 mg/mL suspension for injection - Take 10 mg by injection route. Quantity: (10) mg Lot #: [id number] Route: Injection Exp Date: 10/18/2026 Administered INJECTION/ASPIRATION JOINT/BURSA (PROC) Return to Office Chanda Durham MD for Any 15 at [facility] Internal Med [facility] on 08/30/2024 at 08:45 AM Jil Salazar MD for Any 5 at [facility] on 09/27/2024 at 09:45 AM ALEAH Cassidy [address] [facility] [address], [place], [address], [facility] [employer] [facility] [employer] [facility] 07/28/2024 11:47:21 Procedures Surgical History Date Name Laterality Status Provider Name and Address Organization Details Recorded Time 07/27/19 25 Ortho - Cortisone Injection completed Jil Salazar MD [address] [facility], [place], [address], [facility] [employer] [facility] [employer] [facility] 07/27/2024 16:59:21 10/18/19 23 Medicare Wellness CPT Code, subsequent completed Laurel Gonzalez RN [facility] [employer] [facility] 10/17/2022 10:38:26 10/18/19 23 Advanced Care Planning completed Laurel Gonzalez RN [facility] [employer] [facility] 10/17/2022 10:45:57 12/05/19 22 Date of Last Mammogram completed Laurel Gonzalez RN [facility] [employer] [facility] 10/17/2022 10:40:29 12/05/19 22 Most Recent Bone Density completed Laurel Gonzalez RN [facility] [employer] [facility] 10/17/2022 10:40:50 section completed Not Available [facility] 04/17/2022 04:41:48 extraction of wisdom tooth completed Not Available [facility] 04/17/2022 04:41:48 Total hysterectomy completed Not Available [facility] 04/17/2022 04:41:48 extraction of cataract completed Debbie Quinn RN [facility] [employer] [facility] 05/21/2023 11:17:33 Imaging Results None recorded. Procedure Notes None recorded. Medical Equipment None Reported. Allergies Allergen ID Allergen Name Allergen Category Reaction Reaction Severity Criticality Documentation Date Start Date Code Code System Note Provider Name and Address Organization Details Recorded Time 7049 Substance with sulfonami de structure and antibacte rial mechanism of action (substanc e) medicatio n Not available Not available Not available 04/17/2022 84760 8003 SNOMED unkno wn Not Available [facility] 3 04:55:30 Medications Name Sig Start Date Stop [...] completed Not Available Not Available Not Available bupivacaine HCl 0.5 % (5 mg/mL) injection solution Take 20 mg by injection route. 2024 active Not Available Not Available Not Avai lable Zithromax Z-Juan 250 mg tablet TAKE 2 [...] completed Not Available Not Available Not Available amlodipine 5 mg tablet TAKE 1 TABLET BY MOUTH EVERY DAY FOR 90 DAYS active Not Available Not Available No t Available ciprofloxac in 500 mg tablet 03/16 [...] completed Not Available Not Available Not Available Kenalog 10 mg/mL suspension for injection Take 10 mg by injection route. 2024 active [facility]: 0003- 0494- 20 Not Available Not Available Not Available meclizine 25 mg tablet Take 1 tablet 3 times a day by oral route as needed. active Not Available Not Available No t Available cephalexin 500 mg capsule TAKE 1 CAPSULE BY MOUTH THREE TIMES A DAY FOR 5 DAYS active Not Available Not Available No t Available paroxetine 20 mg tablet TAKE 1 TABLET BY MOUTH DAILY 2024 active GALILEA NOV ok to rf Not Available Not Available Not Available simvastatin 20 mg tablet TAKE 1 TABLET DAILY active Not Available Not Available No t Available oseltamivir 75 mg capsule TAKE 1 CAPSULE BY MOUTH TWICE A DAY 10/17 completed Not Available Not Available Not Available esomeprazol e magnesium 40 mg capsule,del ayed release TAKE 1 CAPSULE BY MOUTH EVERY DAY FOR 90 DAYS active Not Available [...] tablet TAKE 1 TABLET BY MOUTH DAILY 2024 active GALILEA NOV ok to rf Not Available Not Available Not Available fluticasone propionate 50 mcg/actuati on nasal [...] Available Not Available No t Available Fluvirin 5394-9915 45 mcg (15 mcg x 3)/0.5 mL intramuscul ar suspension active Not Available Not Available N ot Available Fluad 65yr up(PF)45 mcg(15 mcgx3)/0.5 mL intramuscul ar syringe ADM 0.5ML IM UTD 03/13 completed Not Available Not Available Not Available Fluzone High-Dose (PF) 180 mcg/0.5 mL intramuscul ar syringe ADMINISTE R 0.5ML IN THE MUSCLE DIRECTED 02/26 completed Not Available Not Available Not Available Fluzone High-Dose Quad 2020-21 (PF) 240 mcg/0.7 mL IM syringe active Not Available Not Available N ot Available Vitals Date Recorded Body height Body mass index (BMI) Body weight Body temperature Heart rate Oxygen saturation Oxygen saturation in Arterial blood by Pulse oximetry Systolic And Diastolic Provider Name and Address Organization Details Last Updated DateTime 5 165.1 cm 31.6 kg/m2 34208.5 5 g 97.4 [degF] 75 /min 96 % 96 % 130/72 mm[Hg] Sheyla irving [employer] 5 09:44:37 Date Recorded Body height Body mass index (BMI) Body weight Provider Name and Address Organization Details Last Updated DateTime 05/24/2024 165.1 cm 31.6 kg/m2 91584.55 g Christie Zapata [employer] 05/24/2024 10:56:38 Date Recorded Body height Body mass index (BMI) Body weight Provider Name and Address Organization Details Last Updated DateTime 07/26/2024 165.1 cm 31.6 kg/m2 55905.55 g Christie Zapata [employer] 07/26/2024 11:34:31 Date Recorded Body height Body mass index (BMI) Body weight Body temperature Heart rate Oxygen saturation Oxygen saturation in Arterial blood by Pulse oximetry Systolic And Diastolic Provider Name and Address Organization Details Last Updated DateTime 4 165.1 cm 32.8 kg/m2 79584.7 g 97.3 [degF] 80 /min 96 % 96 % 128/74 mm[Hg] Sheyla irving [employer] 4 10:07:48 Date Recorded Body height Body mass index (BMI) Body weight Body temperature Heart rate Oxygen saturation Oxygen saturation in Arterial blood by Pulse oximetry Systolic And Diastolic Provider Name and Address Organization Details Last Updated DateTime 4 165.1 cm 32.3 kg/m2 79483.9 2 g 97.6 [degF] 82 /min 96 % 96 % 134/80 mm[Hg] Sheyla irving, DAVID [place] [facility] 4 09:29:52 Social History Question Answer Notes LastModified by Organizat ion Details LastModified Time Tobacco Smoking Status Never Smoker Not Available [employer] 04/17/2022 04:21:02 Do You Have An Advance Directive? No [id number] 026 Information not available 04/17/2022 Are You Blind Or Do You Have Difficulty Seeing? No MIGRATION.9926829 026 Information not available 04/17/2022 How Much Tobacco Do You Chew? None MIGRATION.4931826 026 Information not available 04/17/2022 Are You Deaf Or Do You Have Serious Difficulty Hearing? No MIGRATION.9547160 026 Information not available 04/17/2022 What Type Of Diet Are You Following? REGULAR MIGRATION.8868790 026 Information not available 04/17/2022 Which Illicit Or Recreational Drugs Have You Used? None MIGRATION.8266814 026 Information not available 04/17/2022 Have There Been Any Changes To Your Family Or Social Situation? No MIGRATION.8008543 026 Information not available 04/17/2022 What Is The Fluoride Status Of Your Home? Fluoridated MIGRATION.1948730 026 Information not available 04/17/2022 Where Do You Live? Apartment MIGRATION.6854256 026 Information not available 04/17/2022 Presence Of Domestic Violence No Information no t available 10/17/2022 Are You Able To Care For Yourself? Yes [email or web address] Information not available 10/17/2022 Are You Blind Or Do Yo Have Difficulty Seeing? No [email or web address] Information not available 10/17/2022 Are You Deaf Or Do You Have Serious Difficulty Hearing? No [email or web address] Information not available 10/17/2022 General Stress Level? Moderate [email or web address] Information not available 10/17/2022 Live Alone Of With Others? With Others [email or web address] Information not available 10/17/2022 What Was The Date Of Your Most Recent Tobacco Screening? 05/24/2024 [email or web address] Information not available 05/24/2024 Do You Have Any Pets? No MIGRATION.6606669 026 Information not available 04/17/2022 What Is Your Relationship Status? Information not available 10/17/2022 Do You Use Your Seat Belt Or Car Seat Routinely? Yes MIGRATION.9568951 026 Information not available 04/17/2022 Do You Have Smoke And Carbon Monoxide Detectors In Your Home? Yes MIGRATION.9006389 026 Information not available 04/17/2022 Are You Passively Exposed To Smoke? No MIGRATION.3430301 026 Information not available 04/17/2022 Are There Any Smokers In Your House? No MIGRATION.2527213 026 Information not available 04/17/2022 Do You Use Sunscreen Routinely? Yes MIGRATION.4335277 026 Information not available 04/17/2022 Do You Have Difficulty Walking Or Climbing Stairs? No MIGRATION.8407464 026 Information not available 04/17/2022 Sex: Unknown Functional Status Question Answer Note LastModified by Organizat ion Details LastModified Time What is your level of alcohol consumption? Occasional MIGRATION.202085 2969 Information not available 04/17/2022 Do you or have you ever used smokeless tobacco? Never used smokeless tobacco MIGRATION.052616 6542 Information not available 04/17/2022 Do you have transportation difficulties? No MIGRATION.064950 0147 Information not available 04/17/2022 Are you able to walk? YESWOREST MIGRATION.749722 5316 Information not available 04/17/2022 Do you have difficulty doing errands alone? No MIGRATION.904418 3032 Information not available 04/17/2022 Are you able to care for yourself? 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 No MIGRATION.873448 0902 Information not available 04/17/2022 Do you or have you ever used e-cigarettes or vape? Never used electronic cigarettes MIGRATION.027467 6414 Information not available 04/17/2022 What is your exercise level? Occasional MIGRATION.511798 2977 Information not available 04/17/2022 Mental Status Question Answer Note LastModified by Organizat ion Details LastModified Time Do you feel stressed (tense, restless, nervous, or anxious, or unable to sleep at night)? [id number] beginning to have signs for dementia MIGRATION.392910 8358 Information not available 04/17/2022 Do you have difficulty concentrating, remembering or making decisions? No MIGRATION.202178 4830 Information not available 04/17/2022 Family History Relationship Description Onset Age of this Age Resolved Age Notes LastModified by Organization Details LastModified Time Sister Heart disease MIGRATION.791 [id number] Not available 04/17/2022 04:41:50 Brother Heart disease MIGRATION.144 [id number] Not available 04/17/2022 04:41:50 Notes:PT IS ADOPTED Medical History Condition Response ARTHRITIS Y DIABETES, TYPE Y HYPERTENSION Y CANCER: SPECIFY Y GOUT Y Gynecological History Statement/Question Response Date of Last Mammogram 12/04/2021 Date of Last Colonoscopy Date of Last Mammogram 12/04/2021 Most Recent Bone Density 12/04/2021 Obstetrics History GPAL:G 0 P 0 0 0 0 Immunizations Vaccine Type Date Status Note Provider Nam e and Address Organization Details Recorded Time Influenza, split virus, trivalent, PF 4 completed Not Available [facility] 03/27/2023 10:58:01 COVID-19, mRNA, LNP-S, PF, 30 mcg/0.3 mL dose 1 completed Not Available [facility] 03/27/2023 10:58:01 Influenza, high-dose, quadrivalent, PF 1 completed Not Available [facility] 03/27/2023 10:58:01 SARS-COV-2 (COVID-19) vaccine, UNSPECIFIED 1 completed Not Available [facility] 03/27/2023 10:58:01 Influenza, high-dose, trivalent, PF 0 completed Not Available [facility] 03/27/2023 10:58:01 influenza, unspecified formulation 8 completed Not Available [facility] 03/27/2023 10:58:01 Influenza, high-dose, trivalent, PF 6 completed Not Available [facility] 03/27/2023 10:58:01 Influenza, high-dose, trivalent, PF 9 completed Not Available [facility] 03/27/2023 10:58:01 influenza, unspecified formulation 7 completed Not Available [facility] 03/27/2023 10:58:01 Pneumococcal conjugate PCV 13 7 completed Not Available [facility] 03/27/2023 10:58:01 pneumococcal polysaccharide PPV23 5 completed Not Available [facility] 03/27/2023 10:58:01 Past Encounters Encounter ID Performer Location Encounter Start Date Encounter Closed Date Diagnosis/Indication Diagnosis SNOMED-CT Code Diagnosis ICD10 Code Diagnosis Note [id number] Chanda Durham MD [facility] [address] [place] [address] 06/21/2020 00:00:00 06/21/2020 11:03:29 [id number] Chanda Durham MD [facility] [address] [facility] [place] [address] 10/19/2020 00:00:00 10/19/2020 10:50:24 [id number] Chanda Durham MD [facility] [address] [place] [address] 12/25/2020 00:00:00 12/25/2020 15:57:37 [id number] Chanda Durham MD [facility] [address] [facility] [place] [address] 03/16/2021 00:00:00 03/16/2021 14:28:34 [id number] Chanda Durham MD [facility] [address] [facility] [place] [address] 07/12/2021 00:00:00 07/12/2021 13:03:10 [id number] Chanda Durham MD [facility] [address] [place] [address] 11/12/2021 00:00:00 11/12/2021 10:07:51 [id number] MD ADE [facility] [address] [facility] [place] [address] 03/11/2022 00:00:00 03/11/2022 10:20:18 [id number] Chanda Durham MD [facility] [address] [facility] [place] [address] 06/03/2022 11:03:00 06/03/2022 12:04:07 Essential hypertension 53988047 I10 under control Diabetes mellitus 536405 09 E11.9 diet controlled Hyperlipidemia 23988919 E78.5 labs good Asthma 943188939 J45.90 9 under control Gastroesop hageal reflux disease 425358101 K21.9 under control Gout 45841597 M10.9 stable Allergic rhinitis 449373 04 J30.9 otc Kidney disease 32385276 N08 stable GFR, drinking more water Overactive urinary bladder 905943461 N32.81 using pads Osteopenia 724387813 M85 .80 on ca/vit d Adult heal th examination 417585709 Z00.00 adult health examinatio nColonosco py- 10yrs ago and was orderedDex a- 11/2021Mam mogram- 11/2021Has had pneumovax and prevnarFLU - ovid -had all 3 Obesity 493542356 E66.9 advised to lose more weight Chronic depression 82546 0009 F34.1 stable Malignant neoplasm of skin 882026182 C44.90 needs f/u with dermatolog ist, again discussed Pre-surger y evaluation 254806929 Z01.818 low risk Bilateral tinnitus 25712 30472 102 H93.13 ENT if not better in a month [id number] Chanda Durham MD [facility] [address] [facility] [place] [address] 10/17/2022 09:49:58 10/17/2022 10:35:03 Essential hypertension 55469092 I10 under control Diabetes mellitus 391126 09 E11.9 diet controlled Hyperlipidemia 15911253 E78.5 labs Asthma 177213600 J45.90 9 under control Gastroesop hageal reflux disease 223577279 K21.9 under control Gout 26272313 M10.9 stable Allergic rhinitis 002179 04 J30.9 otc Kidney disease 35588051 N08 stable GFR, Overactive urinary bladder 277399287 N32.81 try Gemtesa samples Osteopenia 303348336 M85 .80 on otc Adult heal th examination 832064750 Z00.00 adult health examinatio nColonosco py- 10yrs ago and was orderedDex a- 11/2021Mam mogram- 11/2021Has had pneumovax and prevnarFLU - 2Covid -had all 3 Obesity 141482895 E66.9 advised to lose weight Chronic depression 76919 0009 F34.1 stable Malignant neoplasm of skin 394736060 C44.90 needs f/u with dermatolog ist, again discussed, willing Bilateral tinnitus 41235 01509 102 H93.13 miold Screening for malignant neoplasm of colon 931239467 Z12.11 Screening mammography 24 091502 Z12.31 Screening for disorder 149672545 Z13.9 [id number] Chanda Durham MD [facility] Internal [address] [place] [address] 12/18/2022 10:48:23 12/18/2022 11:21:49 Acute sinusitis 43127838 J01.90 [id number] Chanda Durham MD [facility] Internal [address] [address] 04/10/2023 10:06:33 04/10/2023 11:14:01 Essential hypertension 62147018 I10 under control Diabetes mellitus 150566 09 E11.9 diet controlled , under control Hyperlipidemia 28512265 E78.5 labs good Asthma 770948398 J45.90 9 under control Gastroesop hageal reflux disease 121492324 K21.9 under control Gout 60927582 M10.9 stable Allergic rhinitis 123032 04 J30.9 ot Kidney disease 42901752 N08 GFR 50 Overactive urinary bladder 385230431 N32.81 pads Osteopenia 120603278 M85 .80 on otc Adult heal th examination 254900095 Z00.00 adult health examinatio nColonosco py- 10yrs ago and was orderedDex a- 11/2021Mam mogram- 11/27/22Ha s had pneumovax and prevnarFLU - 2022Covid -had all 3 Obesity 313927062 E66.9 advised to lose weight Chronic depression 32259 0009 F34.1 stable Malignant neoplasm of skin 107140242 C44.90 needs f/u with dermatolog ist, again discussed, Bilateral tinnitus 69608 77416 102 H93.13 symptoms getting worse [id number] Jonathan Martino MD [facility] ENT Luiza Espinoza [address] [place] [address] 05/21/2023 11:01:34 05/22/2023 09:50:44 Bilateral tinnitus 1281794241 102 H93.13 [id number] Chanda Durham MD [facility] Internal Med [address] [place] [address] 09/15/2023 09:41:37 09/15/2023 10:28:12 Essential hypertension 35267983 I10 under control Diabetes mellitus 440293 09 E11.9 diet controlled , under control Hyperlipidemia 79949183 E78.5 labs good Asthma 242629942 J45.90 9 under control Gastroesop hageal reflux disease 573770351 K21.9 under control Gout 22473061 M10.9 stable Allergic rhinitis 030206 04 J30.9 otc Kidney disease 66149812 N08 GFR 50 Overactive urinary bladder 765246499 N32.81 pads Osteopenia 210268152 M85 .80 on otc Adult heal th examination 156384351 Z00.00 Colonoscop y- had it in the past, due but does not want any moreDexa- 11/2021Mam mogram- 11/27/22Ha s had pneumovax and prevnarFLU - 2022- per ptCovid -had all 3 Obesity 811313367 E66.9 advised to lose weight Chronic depression 30428 0009 F34.1 stable Malignant neoplasm of skin 445573242 C44.90 needs f/u with dermatolog ist, again discussed, Pruritic rash 96154463 L 28.2 [id number] Chanda Durham MD [facility] Internal Med [address] [facility] [place] [address] 01/01/2024 09:19:15 01/01/2024 09:59:23 Essential hypertension 98247299 I10 under control Diabetes mellitus 603330 09 E11.9 diet controlled , under control Hyperlipidemia 17078834 E78.5 labs Asthma 994195712 J45.90 9 under control Gastroesop hageal reflux disease 215824014 K21.9 under control Gout 50433196 M10.9 stable Allergic rhinitis 330352 04 J30.9 ot Kidney disease 57212044 N08 GFR better Overactive urinary bladder 464747484 N32.81 pads Osteopenia 240876362 M85 .80 on ot Adult heal th examination 119970604 Z00.00 Colonoscop y- had it in the past, due but does not want any moreDexa- 11/2021Mam mogram- 11/27/22Ha s had pneumovax and prevnarFLU - 11/2023 ([facility])Covid -had all 3 Obesity 676314577 E66.9 advised to lose weight Chronic depression 72912 0009 F34.1 stable Malignant neoplasm of skin 287732197 C44.90 needs f/u with dermatolog ist, again discussed, Screening mammography 24 275979 Z12.31 Screening for osteoporosis 738293477 Z13.820 Pain of ri ght knee joint 0441788793 27816 M25.031 [id number] Chanda Durham MD [facility] [address] [place] [address] 04/29/2024 09:35:36 04/29/2024 10:08:21 Essential hypertension 30110467 I10 under control Diabetes mellitus 928585 09 E11.9 diet controlled , under control Hyperlipidemia 89907129 E78.5 under control Asthma 162064463 J45.90 9 under control Gastroesop hageal reflux disease 923671202 K21.9 under control Gout 04317836 M10.9 stable Allergic rhinitis 951438 04 J30.9 ot Kidney disease 50443157 N08 GFR 35 Overactive urinary bladder 115986193 N32.81 pads Osteopenia 478223280 M85 .80 on ot Adult heal th examination 254680281 Z00.00 Colonoscop y- had it in the past, due but does not want any moreDexa- 11/2021, getting in 09/10Mammog perla- 11/27/22, getting in 09/10Has had pneumovax and prevnarFLU - 11/2023 ([facility])Covid - had all 3 Obesity 412149523 E66.9 advised to lose weight Chronic depression 10529 0009 F34.1 stable Malignant neoplasm of skin 169119752 C44.90 needs f/u with dermatolog ist, again discussed, willing Pain of ri ght knee joint 9589047681 39711 M25.168 [id number] Jil Salazar MD [facility] [address] [place] [address] 05/24/2024 10:32:46 05/24/2024 11:30:19 Pain of right knee joint 9491188335 02989 M25.561 Osteoarthr itis of right knee joint 7580269995 76084 M17.11 [id number] Jil Salazar MD S_[address] [address] 07/26/2024 11:32:40 07/26/2024 12:33:26 Pain of right knee region 4482673607 24079 M25.561 Health Concerns Section Related Observation LastModified by Organization Detai ls LastModified Time None Recorded Concern Status LastModified by Organization Details LastModified Time None Recorded Advance Directives Directive N: Payers Insurance Date Sequence Insurance Name Policy Number Policy Leonard Covered Member ID Leonard Member ID Guarantor Name 08/16/2024 1 [facility] (MEDICARE REPLACEMENT/A DVANTAGE - HMO) [id number] Conchis Serrano [id number] Conchis Serrano Notes Date Note Type Note Provider Name and Address Organization Details Recorded Time 09/15/2023 text/html Doing fine, compliant to medications, no side affects, here for follow up.States that she was in Urgent Care back in July for a foot infection. left foot. After seeing Nephrology she was started on Furosemideshe was treated with keflex Asthma- under control with inhalers, no coughMeds- Symbicort 2 puffs bid, proair prnHTN- under control with medsMeds- Losartan 100 mg qdDiabetes- diet [id number] 6.4 in 04/12 watching diet,not on any [...] on no pain, no hearing loss Chanda Durham MD [address], [place], [address], [employer] 09/15/2023 10:25:18 01/01/2024 text/html Doing fine, compliant to medications, no side affects, here for follow up.PT IS FASTING ( [facility] ) Asthma- under control with inhalers, no coughMeds- Symbicort 2 puffs bid, proair prnHTN- under control with medsMeds- Losartan 100 mg qdDiabetes- diet [id number] 6.4 in 04/12 watching diet, lost some weightnot on any medsLast eye exam-2023 - Claribel Fierro Hyperlipidemia- under control, labs dueMeds- Rosuvastatin 10 mg qdDepression- under control with meds, sleeps fine, no anxiety symptoms, mood is stableMeds- Paroxetine 20 mg qdGERD - better with medsMeds- Esomeprazole prnGout- no flare up,Meds- Allopurinol 300 mg dailyKidney disease--GFR better at 50 was 45 , Dr. Rodarte- trying to control diet, lost 3 lbOveractive bladder- using pads, meds did not help in the past,Osteopenia- dexa 12/08,H/o skin cancer- need to get exam from dermTinnitus- off and on no pain, no hearing loss Chanda Durham MD [address], [place], [address], [employer] 01/01/2024 09:55:05 04/29/2024 text/html Doing fine, compliant to medications, no side affects, here for follow up.PT IS FASTING ( [facility] ) Asthma- under control with inhalers, no coughMeds- Symbicort 2 puffs bid, Proair prnHTN- under control with medsMeds- Losartan 100 mg qdDiabetes- diet [id number] 6.6 in 10/29/23 watching diet, lost some weightnot on any medsLast eye exam-2023 - Claribel Feirro Hyperlipidemia- under control, labs goodMeds- Rosuvastatin 10 [...] on no pain, no hearing loss Chanda Durham MD [address], [place], [address], [place] [employer] 04/29/2024 10:09:01 OBGyn Episode No OBEpisode recorded.
--- OUTSIDE RECORDS SUMMARY | 2024-08-30 09:51 | XMS_ITS | Encounter Summary ---
Author Organization [facility] Address [address] [place] [address] Care Team Providers Care High Pressure Kettle Operator Name Role Phone Humble Han MD Primary Care Provider [phone] Encounter Details Date Type Department Care Team (Late st Contact Info) Description 11/29/[address] 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
--- OUTSIDE RECORDS SUMMARY | 2024-08-30 09:51 | XMS_ITS | Encounter Summary ---
Author Organization [facility] Address [address] [place] [address] Care Team Providers Care Vending Route Servicer Name Role Phone Humble Han MD Primary Care Provider [phone] Encounter Details Date Type Department Care Team (Late st Contact Info) Description 10/30/2004 Outpatient Historical [facility] Primary Care - [place] [address] [place] [address] David Edgar DO NO ADDRESS ON FILE Social History Tobacco Use Types Packs/Day Years Used Date Smoking Tobacco: Never Assessed Comments Unknown Sex and Gender Information Value Date Recorded Sex Assigned at Not on file Legal Sex Female 3:41 AM LSW Gender Identity Not on file Sexual Orientation Not on file documented as of this encounter Plan of Treatment Not on file documented as of this encounter Visit Diagnoses Not on filedocumented in this encounter Care Teams Vending Route Servicer Relationship Specialty Start Date End Date Humble Han MD [address] [place] [address] PCP - General Family Practice 02/26/12 documented as of this encounter
--- OUTSIDE RECORDS SUMMARY | 2024-08-30 09:51 | XMS_ITS | Encounter Summary ---
Author Organization [facility] Address 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
--- OUTSIDE RECORDS SUMMARY | 2024-08-30 09:52 | XMS_ITS | Encounter Summary ---
Author Organization [facility] Address [address] [place] [address] Care Team Providers Care Civil Structural Engineer Name Role Phone Humble Han MD Primary Care Provider [phone] Encounter Details Date Type Department Care Team (Late st Contact Info) Description 04/28/2001 Outpatient Historical [facility] Primary Care - [place] [address] [place] [address] David Edgar, NO ADDRESS ON FILE Social History Tobacco Use Types Packs/Day Years Used Date Smoking Tobacco: Never Assessed Comments Unknown Sex and Gender Information Value Date Recorded Sex Assigned at Not on file 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
--- OUTSIDE RECORDS SUMMARY | 2024-08-30 09:52 | XMS_ITS ---
Author Organization [facility] Address [address] [place] [address] Care Team Providers Care Utilization Management Nurse Name Role Phone Hoda Jauregui Unavailable [phone] REASON FOR VISIT lvm Encounters Encounter Location Date Provider Diagnosis [facility] [address] [place] [address] 04/05/2024 Hoda Jauregui Plan Of Treatment Next Appt Details Provider Name:Hoda canchola, 09/06/2024 02:45:00 PM, [address] [address], [place], [address], Progress Notes * MIGUEL DUNNEDOB:1950 (74 yo F)Acc No.[id number]:04/05/2024 Progress Notes Patient: JEANIE FONTANEZ Provider: Lizzie JAUREGUI M.D :1950 A ge:73 Y S ex:Female Date:04/05/2024 Address:[address] [place] [address] Subjective: * Chief Complaints: * 1 . Lvm. * Medical History: Objective: * Vitals: Assessment: Plan: * Treatment: * Billing Information: * Visit Code: * Procedure Codes: * Electronic signature of Ham Jauregui MD on 08/30/2024 at 09:52 AM CDT Sign off status: Pending * Provider: Lizzie JAUREGUI M.D Date: 04/05/2024 Generated for Printi ng/Faamanda/eTransmitting on: 08/30/2024 09:52 AM CDT
--- OUTSIDE RECORDS SUMMARY | 2024-08-30 09:52 | XMS_ITS | Encounter Summary ---
Author Organization [facility] Address [address] [place] [address] Care Team Providers Care Flexographic Printing Press Operator Name Role Phone Humble Han MD Primary Care Provider [phone] Encounter Details Date Type Department Care Team (Late st Contact Info) Description 09/24/2000 Outpatient Historical [facility] Primary Care - [place] [address] [place] [address] David Edgar, NO ADDRESS ON FILE Social History Tobacco Use Types Packs/Day Years Used Date Smoking Tobacco: Never Assessed Comments Unknown Sex and Gender Information Value Date Recorded Sex Assigned at Not on file 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
--- OUTSIDE RECORDS SUMMARY | 2024-08-30 09:52 | XMS_ITS | Encounter Summary ---
Author Organization [facility] Address [address] [place] [address] Care Team Providers Care Train Control Technician Name Role Phone Humbel Han MD Primary Care Provider [phone] Encounter Details Date Type Department Care Team (Late st Contact Info) Description 08/31/1999 Outpatient Historical [facility] Primary Care - [place] [address] [place] [address] David Edgar DO NO ADDRESS ON FILE Social History Tobacco Use Types Packs/Day Years Used Date Smoking Tobacco: Never Assessed Comments Unknown Sex and Gender Information Value Date Recorded Sex Assigned at Not on file 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
--- OUTSIDE RECORDS SUMMARY | 2024-08-30 09:52 | XMS_ITS | Encounter Summary ---
Author Organization [facility] Address 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
--- OUTSIDE RECORDS SUMMARY | 2024-08-30 09:52 | XMS_ITS | Encounter Summary ---
Author Organization [facility] Address [address] [place] [address] Care Team Providers Care Media Relations Intern Name Role Phone Humble Han MD Primary Care Provider [phone] Encounter Details Date Type Department Care Team (Late st Contact Info) Description 10/02/2000 Outpatient Historical [facility] Primary Care - [place] [address] [place] [address] David Edgar, NO ADDRESS ON FILE Social History Tobacco Use Types Packs/Day Years Used Date Smoking Tobacco: Never Assessed Comments Unknown Sex and Gender Information Value Date Recorded Sex Assigned at Not on file 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
--- OUTSIDE RECORDS SUMMARY | 2024-08-30 09:52 | XMS_ITS | Encounter Summary ---
Author Organization [facility] Address [address] [place] [address] Care Team Providers Care Sustainability Engineer Name Role Phone Humble Han MD Primary Care Provider [phone] Encounter Details Date Type Department Care Team (Late st Contact Info) Description 04/21/2001 Outpatient Historical [facility] Primary Care - [place] [address] [place] [address] David Edgar, NO ADDRESS ON FILE Social History Tobacco Use Types Packs/Day Years Used Date Smoking Tobacco: Never Assessed Comments Unknown Sex and Gender Information Value Date Recorded Sex Assigned at Not on file 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
--- OUTSIDE RECORDS SUMMARY | 2024-08-30 09:52 | XMS_ITS | Encounter Summary ---
Author Organization [facility] Address [address] [place] [address] Care Team Providers Care Toaster Element Repairer Name Role Phone Humble Han MD Primary Care Provider [phone] Encounter Details Date Type Department Care Team (Late st Contact Info) Description 08/07/1999 Outpatient Historical [facility] Primary Care - [place] [address] [place] [address] David Edgar DO NO ADDRESS ON FILE Social History Tobacco Use Types Packs/Day Years Used Date Smoking Tobacco: Never Assessed Comments Unknown Sex and Gender Information Value Date Recorded Sex Assigned at Not on file Legal 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
== END 2024-08-30 09:44 | disposition home or self-care (01) ==
LOC: ANHIMG 09:47
PROVIDERS: PCP Internal Medicine; Visit Provider Internal Medicine
DX: Z12.31 Encounter for screening mammogram for malignant neoplasm of breast (principal); M85.89 Other specified disorders of bone density and structure, multiple sites; Z78.0 Asymptomatic menopausal state
CPT/HCPCS: 77063; 77067; 77080

== ENCOUNTER 2024-09-01 09:25 | Outpatient (CLI) | payer MEDICARE, SELFPAY ==
--- OUTSIDE RECORDS SUMMARY | 2024-09-01 09:34 | XMS_ITS | Data Portability ---
Author Organization [place] - [facility] [employer], Main Office Address [address] [place] [address] Care Team Providers Care Parts Representative Name Role Phone CHANDA FREIRE Primary Care Provider [phone] CHANDA FREIRE Referring Provider CHANDA FREIRE Primary Care Provider [phone] Assessment Encounter Date Assessment Date Assessment LastModified [...] she should talk to her PCP and Driver. Last A1C October 2023 was 6.4% and [...] Details Appointments Any 15 2024 09:00A Judson Freire MD Not available Not available Not available Any 5 2024 09:45A Judson Salazar MD Not available Not available Not available Lab lipid panel, serum [facility]23 [facility] [address] [place], [address], 02/25/2024 17:12:31 lipid panel, serum [email or web address], [address] [place], [address], 09/30/2023 08:43:35 Referral physical therapist referral - Please contact pt to schedule apt for R knee. Thanks [address] [facility] [place], [address], [place], [address], 06/14/2024 16:45:19 orthopedi c surgeon referral - Please call patient to schedule an appointme nt. Thank you. 2024 025 KRYSTLE Salazar MD, [address] [facility], [place], [address], 05/24/2024 13:20:03 Procedures injection /aspirati on joint/bur sa (PROC) 2024 025 [email or web address] In-Office Order, Internal Use Only DO Not Attach Compendium DO Not Attach Compendium, Do Not Delete/merge, [id number] 07/26/2024 12:11:09 Surgeries None recorded. Imaging MAMMO, screening , bilateral - Please call patient to schedule. [address] (Mammography) , [address], [place], [address], 02/16/2024 14:59:46 XR, knee [address] [facility], [address], [place], [address], 02/02/2024 14:53:08 DEXA [address] (Imaging), [address] [facility] [address], [place], [address], 02/02/2024 14:53:08 Medication Orders bupivacai ne HCl 0.5 % (5 mg/mL) injection solution 2024 025 [email or web address] [facility] [address] In [facility], [address], [place], [address], 07/27/2024 13:12:00 Kenalog 10 mg/mL suspensio n for injection 2024 025 [email or web address] [facility] [address], [address], 07/27/2024 13:12:00 clobetaso l 0.05 % topical ointment 2023 024 [address] [facility] [address], [address], 09/15/2023 10:24:18 Patient TargetsNo targets recorded. Patient Instructions Encounter Date Encounter Id Patient Instructions Last Modified By Organization Details Last Modified Time 09/15/2023 [id number] Exercise discussed, physical activity handouts given Dietary counseling given, nutrition handouts given Not available 09/15/2023 09:54:49 01/01/2024 [id number] Exercise discussed, physical activity handouts given Dietary counseling given, nutrition handouts given Not available 01/01/2024 09:30:34 04/29/2024 [id number] Exercise discussed, physical activity handouts given Dietary [...] knee No observ ation record ed. [email or web address] [facility] [address], [place], [address], 03/31/2024 15:49:08 0708/31/2024 MAMMO , scree lillie, digit al, bilat eral No observ ation record ed. KRYSTLE Not Available 2024 14:16:45 Result Notes None recorded. Problems Name Problem SNOMED Code Status Onset Date Resolution Date Notes Provider Name and Address Organization Details Recorded Time Bilateral tinnitus 69541013374 02 Active 2022 Not Available [facility] 4 10:58:01 Acute sinusitis 31974557 Active 2022 Not Available [facility] 4 10:58:01 Pruritic rash 63074613 Active 2023 Chanda Freire MD [address], [place], [address] , [employer] [facility] 4 10:22:06 Pain of right knee joint 28707342195 4100 Active 2023 Chanda Freire MD [address], [address], [place], [address] , [employer] 4 09:50:09 Osteoarth ritis of right knee joint 95794901664 9100 Active 2024 Omid Wu PA-C [address], [address], [place], [address] , [employer] [facility] [employer] [facility] 5 13:18:17 Pain of right knee region 73895464219 4105 Active 2024 DAVID Sarmiento null, [employer] [facility] 5 11:35:19 Chronic obstructi ve pulmonary disease 88933126 Completed Not Available [facility] 3 04:47:35 Chronic depressio n 758858411 Active Not Available [facility] 4 10:58:01 Asthma 066061376 Active Not Available [facility] 4 10:58:01 Gastroeso phageal reflux disease 624663048 Active Not Available [facility] 4 10:58:01 Screening mammograp hy Completed 202111/09/2021 Not Available [facility] 3 04:47:36 Adult health examinati on Active 2021 Not Available [facility] 4 10:58:01 Screening for osteoporo sis Completed 202103/07/2022 Not Available [facility] 3 04:47:36 Osteopeni a 849571885 Active 2021 Not Available [facility] 4 10:58:01 Malignant neoplasm of skin 930485932 Active 2016 Not Available [facility] 4 10:58:01 Obesity 703898064 Active Not Available [facility] 4 10:58:01 Upper respirato ry infection 56668602 Completed Not Available [facility] 3 04:47:36 Hyperlipi demia 03277238 Active Not Available [facility] 4 10:58:01 Essential hypertens ion 33375315 Active Not Available [facility] 4 10:58:01 Allergic rhinitis 37716985 Active Not Available [facility] 4 10:58:01 Diabetes mellitus 63713116 Active 2021 Not Available [facility] 4 10:58:01 Overactiv e urinary bladder 710956241 Active 2020 Not Available [facility] 4 10:58:01 COVID-19 024521871 Completed 202111/09/2021 Not Available [facility] 3 04:47:37 Fatigue 35734301 Active 2021 Not Available [facility] 4 10:58:01 Gout 04380806 Active Not Available [facility] 4 10:58:01 Kidney disease 39066592 Active Not Available [facility] 4 10:58:01 Disorder of skin 22381464 Completed Not Available [facility] 3 04:47:37 Bilateral cataracts 60740949 Active 2022 Not Available [facility] 4 10:58:01 Problem Notes Documentation Provider Name and Address Organization Details Recorded Time Orthopedic Surgeon Consult Note : [facility] [address] [place], [place] [address] [id number], Dianne (id #[id number], : 1950) Documents sent [...] received this fax in error, please visit [email or web address] to notify the sender and confirm that the information will be destroyed. If you do not have internet access, please call to notify the sender and confirm that the information will be destroyed. Thank you for your attention and cooperation. [ID:[id number]] , Date: 05/24/2024RE: Earnest Camacho MD, I [...] Sincerely, Electronically Signed by: OMID WU PA-C, PAS Assessment/PlanHPI:73 year old female presents today for [...] she should talk to her PCP and Driver. Last A1C October 2023 was 6.4% and has not been well controlled, so advised against a cortisone injection. Follow Up:6-8 weeks after a course of PT. If no improvement, we can try gel injections. Call before follow up appointment so we can order gel injection. All questions were answered. Patient verbalized understanding of the treatment plan 1. Pain of right knee ujmjsI51.561: Pain in right knee PHYSICAL THERAPIST REFERRAL - Schedule Within: provider's discretion Note to Provider: Please contact pt to schedule apt for R knee. Thanks Evaluate & Treat: Per PT Side: RIGHT Reason for Referral: R knee # of requested visits: 12 2. Osteoarthritis of right knee soqhnD42.11: Unilateral primary osteoarthritis, right knee Return to Office Jil Salazar MD for Any [address] [facility] [place] on 07/26/2024 at 10:35 AM Chanda Freire MD for Any [address] [facility] Internal Med [facility] on 08/30/2024 at 08:45 AM Chanda Freire MD [address] [facility], [facility] [address], [place], [address], [facility] 06/03/2024 12:06:30 Orthopedic Surgeon Consult Note : [facility] [facility], [facility] [address]SLZUPX, Dianne (id #[id number], : 1950) Documents sent [...] received this fax in error, please visit [email or web address] to notify the sender and confirm that the information will be destroyed. If you do not have internet access, please call to notify the sender and confirm that the information will be destroyed. Thank you for your attention and cooperation. [ID:[id number]] , Date: 07/27/2024RE: Earnest Camacho MD, I [...] Sincerely, Electronically Signed by: JIL SALAZAR MD Assessment/Yzxt31-[id number]-vgp female presents for follow-up of her right [...] with the plan. 1.Right knee pain, unspecified ilutlfuuzdW62.561: Pain in right knee bupivacaine HCl 0.5 % (5 mg/mL) injection solution - Take 20 mg by injection route. Quantity: (20) mg Lot #: [id number] Route: Injection Exp Date: 01/16/2025 Administered Kenalog 10 mg/mL suspension for injection - Take 10 mg by injection route. Quantity: (10) mg Lot #: [id number] Route: Injection Exp Date: 10/18/2026 Administered INJECTION/ASPIRATION JOINT/BURSA (PROC) Return to Office Chanda Freire MD for Any [address] [facility] Internal Med [facility] on 08/30/2024 at 08:45 AM Jil Salazar MD for Any 5 at [facility] on 09/27/2024 at 09:45 AM ALEAH Cassidy [address] [facility], [address] [address], [place], [address], [facility] [employer] [facility] [employer] 07/28/2024 11:47:21 Procedures Surgical History Date Name Laterality Status Provider Name and Address Organization Details Recorded Time 07/27/19 25 Ortho - Cortisone Injection completed Jil Salazar MD [address] [facility], [place], [address], [facility] [employer] [facility] [employer] 07/27/2024 16:59:21 10/18/19 23 Medicare Wellness CPT Code, subsequent completed Laurel Gonzalez RN [facility] [employer] [facility] 10/17/2022 10:38:26 10/18/19 23 Advanced Care Planning completed Laurel Gonzalez RN [facility] [employer] [facility] 10/17/2022 10:45:57 12/05/19 22 Date of Last Mammogram completed Laurel Gonzalez RN [facility] [employer] [facility] 10/17/2022 10:40:29 12/05/19 22 Most Recent Bone Density completed Laurel Gonzalez RN [facility] [employer] [facility] 10/17/2022 10:40:50 section completed Not Available [facility] 04/17/2022 04:41:48 extraction of wisdom tooth completed Not Available [facility] 04/17/2022 04:41:48 Total hysterectomy completed Not Available [facility] 04/17/2022 04:41:48 extraction of cataract completed Debbie Quinn RN [place] [facility] 05/21/2023 11:17:33 Imaging Results None recorded. Procedure [...] Not available Not available Not available 04/17/2022 34416 8003 SNOMED unkno wn Not Available [facility] 04:55:30 Medications Name Sig Start Date Stop [...] 10 mg by injection route. [address] [facility]: [phone] [phone] Not Available Not Available [...] Available Not Available No t Available Fluvirin 45 mcg (15 mcg x 3)/0.5 mL intramuscul ar suspension active Not Available Not Available N ot Available Fluad 65yr up(PF)45 mcg(15 mcgx3)/0.5 mL intramuscul ar syringe ADM 0.5ML IM UTD 03/13 completed Not Available Not Available Not Available Fluzone High-Dose 2018- (PF) 180 mcg/0.5 mL intramuscul ar syringe [...] and Address Organization Details Last Updated DateTime 165.1 cm 31.6 kg/m2 41276.5 5 g 97.4 [degF] 75 /min 96 % 96 % 130/72 mm[Hg] Sheyla irving Jesika [employer] [facility] [employer] [facility] 5 09:44:37 Date Recorded Body height Body mass index (BMI) Body weight Provider Name and Address Organization Details Last Updated DateTime 05/24/2024 165.1 cm 31.6 kg/m2 71659.55 g Christie Zapata [facility] [employer] [facility] [employer] [facility] 05/24/2024 10:56:38 Date Recorded Body height Body mass index (BMI) Body weight Provider Name and Address Organization Details Last Updated DateTime 07/26/2024 165.1 cm 31.6 kg/m2 91702.55 g Christie Zapata [facility] [employer] [facility] [employer] [facility] 07/26/2024 11:34:31 Date Recorded Body height Body mass index (BMI) Body weight Body temperature Heart rate Oxygen saturation Oxygen saturation in Arterial blood by Pulse oximetry Systolic And Diastolic Provider Name and Address Organization Details Last Updated DateTime 165.1 cm 32.8 kg/m2 53764.7 g 97.3 [degF] 80 /min 96 % 96 % 128/74 mm[Hg] Sheyla irving Jesika [employer] [facility] [employer] [facility] 4 10:07:48 Date Recorded Body height Body mass index (BMI) Body weight Body temperature Heart rate Oxygen saturation Oxygen saturation in Arterial blood by Pulse oximetry Systolic And Diastolic Provider Name and Address Organization Details Last Updated DateTime 4 165.1 cm 32.3 kg/m2 05443.9 2 g 97.6 [degF] 82 /min 96 % 96 % 134/80 mm[Hg] DAVID Lai [place] [facility] 4 09:29:52 Social History Question Answer Notes LastModified by Organizat ion Details LastModified Time Tobacco Smoking Status Never Smoker Not Available [facility] 04/17/2022 04:21:02 Do You Have An Advance Directive? No MIGRATION.[id number] 026 Information not available 04/17/2022 Are You Blind Or Do You Have Difficulty Seeing? No MIGRATION.5375348 026 Information not available 04/17/2022 How Much Tobacco Do You Chew? None MIGRATION.4017683 026 Information not available 04/17/2022 Are You Deaf Or Do You Have Serious Difficulty Hearing? No MIGRATION.8059843 026 Information not available 04/17/2022 What Type Of Diet Are You Following? REGULAR MIGRATION.6065043 026 Information not available 04/17/2022 Which Illicit Or Recreational Drugs Have You Used? None MIGRATION.2436833 026 Information not available 04/17/2022 Have There Been Any Changes To Your Family Or Social Situation? No MIGRATION.1780284 026 Information not available 04/17/2022 What Is The Fluoride Status Of Your Home? Fluoridated MIGRATION.8406999 026 Information not available 04/17/2022 Where Do You Live? Apartment MIGRATION.3898451 026 Information not available 04/17/2022 Presence Of Domestic Violence No [email or web address] Information no t available 10/17/2022 Are You Able To Care For Yourself? Yes [email or web address] Information not available 10/17/2022 Are You Blind Or Do Yo Have Difficulty Seeing? No [email or web address] Information not available 10/17/2022 Are You Deaf Or Do You Have Serious Difficulty Hearing? No Information not available 10/17/2022 General Stress Level? Moderate [email or web address] Information not available 10/17/2022 Live Alone Of With Others? With Others [email or web address] Information not available 10/17/2022 What Was The Date Of Your Most Recent Tobacco Screening? 05/24/2024 Information not available 05/24/2024 Do You Have Any Pets? No MIGRATION.9075510 026 Information not available 04/17/2022 What Is Your Relationship Status? [email or web address] Information not available 10/17/2022 Do You Use Your Seat Belt Or Car Seat Routinely? Yes MIGRATION.2346015 026 Information not available 04/17/2022 Do You Have Smoke And Carbon Monoxide Detectors In Your Home? Yes MIGRATION.1243622 026 Information not available 04/17/2022 Are You Passively Exposed To Smoke? No MIGRATION.5463618 026 Information not available 04/17/2022 Are There Any Smokers In Your House? No MIGRATION.4485981 026 Information not available 04/17/2022 Do You Use Sunscreen Routinely? Yes MIGRATION.1456211 026 Information not available 04/17/2022 Do You Have Difficulty Walking Or Climbing Stairs? No MIGRATION.4727815 026 Information not available 04/17/2022 Sex: Unknown Functional Status Question Answer Note LastModified by [employer] Details LastModified Time What is your level of alcohol consumption? Occasional MIGRATION.386992 0946 Information not available 04/17/2022 Do you or have you ever used smokeless tobacco? Never used smokeless tobacco MIGRATION.056081 0746 Information not available 04/17/2022 Do you have transportation difficulties? No MIGRATION.985479 7244 Information not available 04/17/2022 Are you able to walk? YESWOREST MIGRATION.397165 8019 Information not available 04/17/2022 Do you have difficulty doing errands alone? No MIGRATION.225225 3318 Information not available 04/17/2022 Are you able to care for yourself? 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 No MIGRATION.927009 7269 Information not available 04/17/2022 Do you or have you ever used e-cigarettes or vape? Never used electronic cigarettes MIGRATION.171056 2115 Information not available 04/17/2022 What is your exercise level? Occasional MIGRATION.805887 1554 Information not available 04/17/2022 Mental Status Question Answer Note LastModified by Organizat ion Details LastModified Time Do you feel stressed (tense, restless, nervous, or anxious, or unable to sleep at night)? [id number] beginning to have signs for dementia MIGRATION.421858 6191 Information not available 04/17/2022 Do you have difficulty concentrating, remembering or making decisions? No MIGRATION.575630 2772 Information not available 04/17/2022 Family History Relationship Description Onset Age of this Age Resolved Age Notes LastModified by Organization Details LastModified Time Sister Heart disease MIGRATION.287 [id number] Not available 04/17/2022 04:41:50 Brother Heart disease MIGRATION.689 4021378 Not available 04/17/2022 04:41:50 Notes:PT IS ADOPTED Medical History Condition Response ARTHRITIS Y DIABETES, TYPE Y GOUT Y HYPERTENSION Y CANCER: SPECIFY Y Gynecological History Statement/Question Response Date of Last Mammogram 12/04/2021 Date of Last Colonoscopy Date of Last Mammogram 12/04/2021 Most Recent Bone Density 12/04/2021 Obstetrics History GPAL:G 0 P 0 0 0 0 Immunizations Vaccine Type Date Status Note Provider Nam e and Address Organization Details Recorded Time Influenza, split virus, trivalent, PF 4 completed Not Available [facility] 03/27/2023 10:58:01 COVID-19, mRNA, LNP-S, PF, 30 mcg/0.3 mL dose 1 completed Not Available [facility] 03/27/2023 10:58:01 Influenza, high-dose, quadrivalent, PF 1 completed Not Available [facility] 03/27/2023 10:58:01 SARS-COV-2 (COVID-19) vaccine, UNSPECIFIED 1 completed Not Available [facility] 03/27/2023 10:58:01 Influenza, high-dose, trivalent, PF 0 completed [facility] Available [facility] 03/27/2023 10:58:01 influenza, unspecified formulation 8 completed Not Available [facility] 03/27/2023 10:58:01 Influenza, high-dose, trivalent, PF 6 completed [facility] Available [facility] 03/27/2023 10:58:01 Influenza, high-dose, trivalent, PF 9 completed Not Available [facility] 03/27/2023 10:58:01 influenza, unspecified formulation 7 completed Not Available [facility] 03/27/2023 10:58:01 Pneumococcal conjugate PCV 13 7 completed Not Available [facility] 03/27/2023 10:58:01 pneumococcal polysaccharide PPV23 5 completed Not Available [facility] 03/27/2023 10:58:01 Past Encounters Encounter ID Performer Location Encounter Start Date Encounter Closed Date Diagnosis/Indication Diagnosis SNOMED-CT Code Diagnosis ICD10 Code Diagnosis Note [id number] Chanda Freire MD [facility] [address] [facility] [place] [address] 06/21/2020 00:00:00 06/21/2020 11:03:29 [id number] Chanda Freire MD [facility] [address] [place] [address]. [place] [address] 10/19/2020 00:00:00 10/19/2020 10:50:24 [id number] Chanda Freire MD [facility] Internal [address] [place] [address]. [place] [address] 12/25/2020 00:00:00 12/25/2020 15:57:37 [id number] Chanda Freire MD [facility] Internal [address] [place] [address]. [place] [address] 03/16/2021 00:00:00 03/16/2021 14:28:34 [id number] Chanda Freire MD [facility] Internal [address] [place] [address]. [place] [address] 07/12/2021 00:00:00 07/12/2021 13:03:10 [id number] Chanda Freire MD Daniel[facility] Internal [address] [place] [address]. [place] [address] 11/12/2021 00:00:00 11/12/2021 10:07:51 [id number] MD CAITLIN Garcia[facility] Internal [address] [place] [address]. [place] [address] 03/11/2022 00:00:00 03/11/2022 10:20:18 [id number] Chanda Freire MD [facility] Internal Med [address] [place] [address] 06/03/2022 11:03:00 06/03/2022 12:04:07 Essential hypertension 15591445 I10 under control Diabetes mellitus 896551 09 E11.9 diet controlled Hyperlipidemia 26721138 E78.5 labs good Asthma 924383302 J45.90 9 under control Gastroesop hageal reflux disease 358665526 K21.9 under control Gout 38271796 M10.9 stable Allergic rhinitis 113660 04 J30.9 otc Kidney disease 67882722 N08 stable GFR, drinking more water Overactive urinary bladder 541348515 N32.81 using pads Osteopenia 928178679 M85 .80 on ca/vit d Adult heal th examination 712909739 Z00.00 adult health examinatio nColonosco py- 10yrs ago and was orderedDex a- 11/2021Mam mogram- 11/2021Has had pneumovax and prevnarFLU - ovid -had all 3 Obesity 596123809 E66.9 advised to lose more weight Chronic depression 76115 0009 F34.1 stable Malignant neoplasm of skin 870930988 C44.90 needs f/u with dermatolog ist, again discussed Pre-surger y evaluation 017897055 Z01.818 low risk Bilateral tinnitus 38921 89468 102 H93.13 ENT if not better in a month [id number] Chanda Freire MD [facility] Internal Med [address] [facility] [place] [address] 10/17/2022 09:49:58 10/17/2022 10:35:03 Essential hypertension 74686194 I10 under control Diabetes mellitus 009442 09 E11.9 diet controlled Hyperlipidemia 18814727 E78.5 labs Asthma 566284614 J45.90 9 under control Gastroesop hageal reflux disease 407565406 K21.9 under control Gout 52501544 M10.9 stable Allergic rhinitis 185886 04 J30.9 otc Kidney disease 17760573 N08 stable GFR, Overactive urinary bladder 471538011 N32.81 try Gemtesa samples Osteopenia 803781274 M85 .80 on ot Adult [facility] th examination 155179607 Z00.00 adult health examinatio nColonosco py- 10yrs ago and was orderedDex a- 11/2021Mam mogram- 11/2021Has had pneumovax and prevnarFLU - ovid -had all 3 Obesity 000920668 E66.9 advised to lose weight Chronic depression 89251 0009 F34.1 stable Malignant neoplasm of skin 946953078 C44.90 needs f/u with dermatolog ist, again discussed, willing Bilateral tinnitus 26087 60624 102 H93.13 miold Screening for malignant neoplasm of colon 398605609 Z12.11 Screening mammography 24 755364 Z12.31 Screening for disorder 964440604 Z13.9 [id number] Chanda Freire MD [facility] Internal Med [facility] [address] [facility] [place] [address] 12/18/2022 10:48:23 12/18/2022 11:21:49 Acute sinusitis 06046255 J01.90 [id number] Chanda Freire MD [facility] Internal [address] [place] [address] [facility] [place] [address] 04/10/2023 10:06:33 04/10/2023 11:14:01 Essential hypertension 49094293 I10 under control Diabetes mellitus 770815 09 E11.9 diet controlled , under control Hyperlipidemia 08072325 E78.5 labs good Asthma 225597445 J45.90 9 under control Gastroesop hageal reflux disease 329579770 K21.9 under control Gout 84447664 M10.9 stable Allergic rhinitis 322377 04 J30.9 [facility] Kidney disease 48145423 N08 GFR 50 Overactive urinary bladder 120161633 N32.81 pads Osteopenia 807206716 M85 .80 on ot Adult [facility] th examination 666954191 Z00.00 adult health examinatio nColonosco py- 10yrs ago and was orderedDex a- 11/2021Mam mogram- 11/27/22Ha s had pneumovax and prevnarFLU - ovid -had all 3 Obesity 595281544 E66.9 advised to lose weight Chronic depression 29930 0009 F34.1 stable Malignant neoplasm of skin 712006024 C44.90 needs f/u with dermatolog ist, again discussed, Bilateral tinnitus 31523 76080 102 H93.13 symptoms getting worse [id number] Jonathan Martino MD [facility] Clyde Espinoza [address] [place] [address] 05/21/2023 11:01:34 05/22/2023 09:50:44 Bilateral tinnitus 9009635588 102 H93.13 [id number] Chanda Freire MD [facility] [address] [place] [address] 09/15/2023 09:41:37 09/15/2023 10:28:12 Essential hypertension 21647316 I10 under control Diabetes mellitus 558908 09 E11.9 diet controlled , under control Hyperlipidemia 22840393 E78.5 labs good Asthma 575577542 J45.90 9 under control Gastroesop hageal reflux disease 804611658 K21.9 under control Gout 92576165 M10.9 stable Allergic rhinitis 130238 04 J30.9 otc Kidney disease 27947234 N08 GFR 50 Overactive urinary bladder 233026553 N32.81 pads Osteopenia 771968961 M85 .80 on otc Adult heal th examination 488911607 Z00.00 Colonoscop y- had it in the past, due but does not want any moreDexa- 11/2021Mam mogram- 11/27/22Ha s had pneumovax and prevnarFLU - 2022- per ptCovid -had all 3 Obesity 581841410 E66.9 advised to lose weight Chronic depression 70186 0009 F34.1 stable Malignant neoplasm of skin 609691869 C44.90 needs f/u with dermatolog ist, again discussed, Pruritic rash 86876153 L 28.2 [id number] Chanda Freire MD [facility] [address] [place] [address] 01/01/2024 09:19:15 01/01/2024 09:59:23 Essential hypertension 32649298 I10 under control Diabetes mellitus 723443 09 E11.9 diet controlled , under control Hyperlipidemia 37470939 E78.5 labs Asthma 973306599 J45.90 9 under control Gastroesop hageal reflux disease 130208569 K21.9 under control Gout 45812511 M10.9 stable Allergic rhinitis 316475 04 J30.9 otc Kidney disease 61488556 N08 GFR better Overactive urinary bladder 180148664 N32.81 pads Osteopenia 574635880 M85 .80 on ot Adult heal th examination 046334316 Z00.00 Colonoscop y- had it in the past, due but does not want any moreDexa- 11/2021Mam mogram- 11/27/22Ha s had pneumovax and prevnarFLU - 11/2023 ([facility])Covid -had all 3 Obesity 165785295 E66.9 advised to lose weight Chronic depression 86134 0009 F34.1 stable Malignant neoplasm of skin 005629598 C44.90 needs f/u with dermatolog ist, again discussed, Screening mammography 24 725835 Z12.31 Screening for osteoporosis 829151141 Z13.820 Pain of ri ght knee joint 1989872511 32684 M25.459 [id number] Chanda Freire MD [facility] [address] [place] [address] 04/29/2024 09:35:36 04/29/2024 10:08:21 Essential hypertension 26341720 I10 under control Diabetes mellitus 478403 09 E11.9 diet controlled , under control Hyperlipidemia 65725846 E78.5 under control Asthma 102355351 J45.90 9 under control Gastroesop hageal reflux disease 595458664 K21.9 under control Gout 59450779 M10.9 stable Allergic rhinitis 373064 04 J30.9 otc Kidney disease 87357899 N08 GFR 35 Overactive urinary bladder 282735882 N32.81 pads Osteopenia 025337705 M85 .80 on ot Adult heal th examination 560167884 Z00.00 Colonoscop y- had it in the past, due but does not want any moreDexa- 11/2021, getting in 09/10Mammog perla- 11/27/22, getting in 09/10Has had pneumovax and prevnarFLU - 11/2023 ([facility])Covid - had all 3 Obesity 569667471 E66.9 advised to lose weight Chronic depression 74394 0009 F34.1 stable Malignant neoplasm of skin 542023791 C44.90 needs f/u with dermatolog ist, again discussed, willing Pain of ri ght knee joint 9355545970 70448 M25.336 [id number] Jil Salazar MD [facility] [address] 05/24/2024 10:32:46 05/24/2024 11:30:19 Pain of right knee joint 2225383555 52543 M25.561 Osteoarthr itis of right knee joint 8332661453 62865 M17.11 [id number] Jil Salazar MD [facility] [address] 07/26/2024 11:32:40 07/26/2024 12:33:26 Pain of right knee region 6844884041 63340 M25.561 Health Concerns Section Related Observation LastModified by Organization Detai ls LastModified Time None Recorded Concern Status LastModified by Organization Details LastModified Time None Recorded Advance Directives Directive N: Payers Insurance Date Sequence Insurance Name Policy Number Policy Leonard Covered Member ID Leonard Member ID Guarantor Name 08/16/2024 1 [facility] (MEDICARE REPLACEMENT/A DVANTAGE - HMO) [id number] Conchis Serrano [id number] Conchis Serrano Notes Date Note Type Note [...] with medsMeds- Losartan 100 mg qdDiabetes- diet [id number] 6.4 in 04/12 watching diet,not on any medsLast eye exam-2023 - [facility] Hyperlipidemia- under controlMeds- Rosuvastatin 10 mg qdDepression- [...] no hearing loss Chanda Freire MD [address] [facility], [place], [address], [employer] 09/15/2023 10:25:18 01/01/2024 text/html Doing fine, compliant to medications, no side affects, here for follow up.PT IS FASTING ( [facility] ) Asthma- under control with inhalers, no coughMeds- Symbicort 2 puffs bid, proair prnHTN- under control with medsMeds- Losartan 100 mg qdDiabetes- diet [id number] 6.4 in 04/12 watching diet, lost some weightnot on any medsLast eye exam-2023 - [facility] Hyperlipidemia- under control, labs dueMeds- Rosuvastatin 10 [...] no hearing loss Chanda Freire MD [address], [address], [place], [address], [employer] 01/01/2024 09:55:05 04/29/2024 text/html Doing fine, compliant to medications, no side affects, here for follow up.PT IS FASTING ( [facility] ) Asthma- under control with inhalers, no coughMeds- Symbicort 2 puffs bid, Proair prnHTN- under control with medsMeds- Losartan 100 mg qdDiabetes- diet phlmkhtltrH7r 6.6 in 10/29/23 watching diet, lost some weightnot on any medsLast eye exam-2023 - [facility] Hyperlipidemia- under control, labs goodMeds- Rosuvastatin 10 [...] pain, no hearing loss Chanda Freire MD [address] [place] [address], [facility] [address], [place], [address], [place] - [email or web address] 04/29/2024 10:09:01 OBGyn Episode No OBEpisode recorded.
--- OUTSIDE RECORDS SUMMARY | 2024-09-01 09:34 | XMS_ITS ---
Author Organization [facility] Address [address] [place] [address] Care Team Providers Care Car Shifter Name Role Phone Hoda Jauregui Unavailable [phone] REASON FOR VISIT lvm Encounters Encounter Location Date Provider Diagnosis [place] [facility] [address] [place] [address] 04/05/2024 Hoda Jauregui Plan Of Treatment Next Appt Details Provider Name:Hoda canchola, 09/06/2024 02:45:00 PM, [address] [address], [place], [address], Progress Notes * MIGUEL DUNNEDOB:1950 (74 yo F)Acc No.[id number]:04/05/2024 Progress Notes Patient: JEANIE FONTANEZ Provider: Lizzie JAUREGUI M.D :1950 A ge:73 Y S ex:Female Date:04/05/2024 Address:[address] [place] [address] Subjective: * Chief Complaints: * 1 . Lvm. * Medical History: Objective: * Vitals: Assessment: Plan: * Treatment: * Billing Information: * Visit Code: * Procedure Codes: * Electronic signature of Ham Jauregui MD on 09/01/2024 at 09:34 AM CDT Sign off status: Pending * Provider: Lizzie JAUREGUI M.D Date: 04/05/2024 Generated for Printi ng/Famary kayg/eTransmitting on: 09/01/2024 09:34 AM CDT
--- OUTSIDE RECORDS SUMMARY | 2024-09-01 09:34 | XMS_ITS ---
Author Organization [facility] Address [address] [place] [address] Care Team Providers Care Licensed Staff Mft Name Role Phone Hoda Jauregui Unavailable [phone] Encounters Encounter Location Date Provider Diagnosis [place] [facility] [address] [facility] [address] [place] [address] 06/07/2024 Hoda Jauregui Plan Of Treatment Next Appt Details Provider Name:Hoda canchola, 09/06/2024 02:45:00 PM, [address] [facility] [address], [place], [address], Progress Notes * DUNN MIGUELEDOB:1950 (74 yo F)Acc No.[id number]:06/07/2024 Progress Notes Patient: JEANIE FONTANEZ Provider: Lizzie JAUREGUI M.D :1950 A ge:73 Y S ex:Female Date:06/07/2024 Address:[address] [place] [address] Subjective: * Chief Complaints: * * Medical History: Objective: * Vitals: Assessment: Plan: * Treatment: * Billing Information: * Visit Code: * Procedure Codes: * Electronic signature of Ham Jauregui MD on 09/01/2024 at 09:34 AM CDT Sign off status: Pending * Provider: Lizzie JAUREGUI M.D Date: 06/07/2024 Generated for Augustinei ng/Famary kayg/eTransmitting on: 09/01/2024 09:34 AM CDT
--- OUTSIDE RECORDS SUMMARY | 2024-09-01 09:34 | XMS_ITS | Patient Health Record ---
Author Organization [facility] Address [address] [place] [address] Care Team Providers Care Retail Salesman Name Role Phone Hoda Godwin Unavailable [phone] Reason For Referral No Information Medications Medication [...] 10/29/2021 Active Vitamin D (Ergocalciferol) 1.25 MG (23038 UT) TAKE 1 CAPSULE BY MOUTH EVERY 2 WEEKS 90 DAYS; Duration: 90 days Active Problems Problem Type SNOMED Code ICD Code Onset Dates Problem Status W/U Status Risk Notes Problem Secondary hyperparathyroidism (37599691) Secondary hyperparathyroi dism, not elsewhere classified (E21.1) Active confirmed Problem Vitamin D deficiency (08749347) Vitamin D deficiency, unspecified (E55.9) Active confirmed Problem Hyperuricemia withou t signs of inflammatory arthritis and tophaceous disease (774715359) 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 inflammatory 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) Active confirmed Problem Essential hypertensi on (01376108) Essential (primary) hypertension (I10) Active confirmed Problem Chronic kidney disea se stage 2 (171583032) Chronic kidney disease, stage 2 (mild) (N18.2) Active confirmed Problem Edema (62006788) Edema, unspecified (R60.9) Active confirmed Problem Proteinuria (77478409) Proteinur ia, unspecified (R80.9) Active confirmed Problem Type II diabetes mellitus without complication (757662044) Type 2 diabetes mellitus without complication, unspecified whether fpc insulin use (E11.9) Active confirmed Problem Chronic kidney disea se stage 3 (disorder) (057248018) Chronic kidney disease, stage 3 unspecified (N18.30) Active confirmed Problem Chronic kidney disea se stage 3A (disorder) (488852509) Chronic kidney disease, stage 3a (N18.31) Active confirmed Encounters Encounter Location Date Provider Diagnosis [facility] [address] [address] 11/03/2023 Hoda Tato Chronic kidney disease, stage 2 (mild) N18.2 ; Edema, unspecified R60.9 ; Vitamin D deficiency, unspecified E55.9 and Secondary hyperparathyroidism, not elsewhere classified E21.1 [facility] [address] [address] 03/01/2024 Hoda Tato Chronic kidney disease, stage 3a N18.31 ; Vitamin D deficiency, unspecified E55.9 ; Type 2 diabetes mellitus without complication, unspecified whether exterminator helper termite insulin use E11.9 and Proteinuria, unspecified R80.9 [facility] [address] [address] 06/07/2024 Hoda [facility] [place] [facility] [address] [place] [address] 11/03/2023 Hoda [facility] [place] [facility] [address] [place] [address] 03/01/2024 Hoda Tato [facility] [place] [facility] [address] [place] [address] 03/01/2024 Hoda Tato [facility] [place] [facility] [address] [place] [address] 06/07/2024 Hoda Tato [facility] [place] [facility] [address] [place] [address] 06/09/2024 Hoda Tato [facility] [place] [facility] [address] [place] [address] 2024 Hoda Tato [facility] [place] [facility] [address] [place] [address] 08/16/2024 Hoda Godiwn [facility] [place] [facility] [address] [place] [address] 08/16/2024 Hoda Godwin Assessments Encounter Date Diagnosis [...] 2 diabetes mellitus without complication, unspecified whether fpc insulin use (ICD-10 - E11.9) 03/01/2024 Proteinuria, unspecified (ICD-10 - R80.9) 11/03/2023 Secondary hyperparathyroid ism, not elsewhere classified (ICD-10 - E21.1) Plan Of Treatment Next Appt Details Provider Name:Hoda canchola, 09/06/2024 02:45:00 PM, [address], [facility] [address], [place], [address],
--- OUTSIDE RECORDS SUMMARY | 2024-09-01 09:34 | XMS_ITS ---
Author Organization [facility] Address [address] [facility] [address] [facility] [address] [place] [address] Care Team Providers Care Body Fitter Name Role Phone Tato Hoda Unavailable [phone] Problems Problem Type SNOMED Code ICD Code Onset Dates Problem Status W/U Status Risk Notes Problem Chronic kidney disease stage 3A (disorder) (834310996) Chronic kidney disease, stage 3a (N18.31) Active confirmed Problem Proteinuria (78668848) Proteinuria, unspecified (R80.9) Active confirmed Problem Type 2 diabetes mellitus without complication, unspecified whether detention insulin use (E11.9) Active confirmed Encounters Encounter Location Date Provider Diagnosis [place] [facility] [address] [facility] [address] [place] [address] 03/01/2024 Hoda Jauregui Chronic kidney disease, stage 3a N18.31 ; Vitamin D deficiency, unspecified E55.9 ; Type 2 diabetes mellitus without complication, unspecified whether detention insulin use E11.9 and Proteinuria, unspecified R80.9 Assessments Encounter Date Diagnosis (ICD Code) Assessment Notes Treatment Notes Treatment Clinical Notes Section Notes 03/01/2024 Chronic kidney disease, stage 3a (ICD-10 - N18.31) 03/01/2024 Vitamin D deficiency, unspecified (ICD-10 - E55.9) 03/01/2024 Type 2 diabetes mellitus without complication, unspecified whether long term care phlebotomist insulin use (ICD-10 - E11.9) 03/01/2024 Proteinuria, unspecified (ICD-10 - R80.9) Plan Of Treatment Next Appt Details Provider Name:Hoda canchola, 09/06/2024 02:45:00 PM, [address] [facility], [address], [place], [address], Progress Notes * SABIHA DUNN:1950 (74 yo F)Acc No.[id number]:03/01/2024 Progress Notes Patient: JEANIE FONTANEZ Provider: Lizzie JAUREGUI M.D :1950 A ge:73 Y S ex:Female Date:03/01/2024 Address:[address] [place] [address] Subjective: * Chief Complaints: * * Medical History: Objective: * Vitals: Assessment: * Assessment: 1. C hronic kidney disease, stage 3a - N18.31 (Primary) 2 . V itamin D deficiency, unspecified - E55.9 3 . T ype 2 diabetes mellitus without complication, unspecified whether detention insulin use - E11.9 4 . P roteinuria, unspecified - R80.9 Plan: * Treatment: * Billing Information: * Visit Code: * Procedure Codes: * Electronic signature of Ham Jauregui MD on 09/01/2024 at 09:34 AM CDT Sign off status: Pending * Provider: Lizzie JAUREGUI M.D Date: 0 03/01/2024 Generated for Henrry shafer/Cristobal/[place] on: 0 09/01/2024 09:34 AM CDT
[2024-09-01 10:16] LABS: Hematocrit 34.1 % (37.0-47.0); Hemoglobin 10.4 g/dL (12.0-15.0); Immature Granulocyte Percent A 0.3 % (0-0.5); Lymphocytes Absolute Auto 1.25 K/mm3 (0.9-3.2); Mean Corpuscular HGB Conc 30.5 g/dl (32-36); Mean Corpuscular Hemoglobin 27.9 pg (26-34); Mean Corpuscular Volume 91.4 fl (80-100); Nucleated Red Blood Cells Absolute Auto 0.000 K/mm3 (0.0-0.012); Nucleated Red Blood Cells Perc 0.0 % (0.0-0.2); Platelet Count Result 288 k/mm3 (150-375); Red Blood Count 3.73 M/mm3 (4.2-5.4); White Blood Count 6.5 K/mm3 (4.5-10.0)
[2024-09-01 10:24] LABS: Add Urine Microscopic? YES; Appearance Urine Clear (Clear); Glucose Urine UA Negative (Negative); Leukocyte Esterase Ur Negative LEU/UL (Negative); Nitrate Urine Negative (Negative); Specific Grav Ur 1.012 (1.001-1.035)
[2024-09-01 11:14] LABS: Parathyroid Intact 99.6 pg/mL (14.5-75.2)
[2024-09-01 11:20] LABS: Total Protein Urine Random 539 mg/dL; Ur Ttl Prot Creatinine Ratio 9.20 mg/mg (0-0.20)
[2024-09-01 12:37] LABS: Hemoglobin A1C 6.4 % (<5.7)
[2024-09-01 12:52] LABS: Iron 59 ug/dL (37-170)
[2024-09-01 12:54] LABS: Albumin Level 3.8 g/dL (3.5-5.1); Anion Gap 9 mmol/L (4-12); Blood Urea Nitrogen 34 mg/dL (7-17); Calcium 9.5 mg/dL (8.4-10.2); Carbon Dioxide 21 mmol/L (22-30); Chloride 109 mmol/L (98-107); Estimated Glomerular Filt Rate 33; Glucose 97 mg/dL (65-110); Potassium 4.5 mmol/L (3.4-5.0); Sodium 139 mmol/L (137-145)
[2024-09-01 13:03] LABS: Percent Iron Saturation 21 % (20-50)
[2024-09-01 13:28] LABS: Ferritin 44.80 ng/mL (11.1-264)
[2024-09-01 14:00] LABS: Vitamin B12 315.0 pg/mL (239-931)
[2024-09-01 16:48] LABS: Uric Acid 7.5 mg/dL (2.5-7.5)
== END 2024-09-01 09:26 | disposition home or self-care (01) ==
PROVIDERS: PCP Internal Medicine; Visit Provider Internal Medicine Nephrology
DX: I12.9 Hypertensive chronic kidney disease with stage 1 through stage 4 chronic kidney disease, or unspecified chronic kidney disease (principal); E11.22 Type 2 diabetes mellitus with diabetic chronic kidney disease; N18.30 Chronic kidney disease, stage 3 unspecified; E11.65 Type 2 diabetes mellitus with hyperglycemia; E78.5 Hyperlipidemia, unspecified; E55.9 Vitamin D deficiency, unspecified
CPT/HCPCS: 36415; 80069; 81001; 82306; 82570; 82607; 82728; 82746; 83036; 83540; 83550; 83970; 84156; 84550; 85025

== ENCOUNTER 2024-10-25 09:37 | Outpatient (CLI) | payer MEDICARE, SELFPAY ==
--- NOTE | ~2024-10-25 | MR_ITS ---
EXAMINATION: MR knee RT wo con DATE: 10/25/2024 10:08 INDICATION: Right knee pain TECHNIQUE: Magnetic resonance imaging (MRI) of the right knee was performed without intravenous contrast. Sequences included coronal PD-weighted FSE, coronal PD-weighted FS FSE, sagittal T2-weighted FSE, sagittal PD-weighted FS FSE and axial PD weighted fat saturated FSE. COMPARISON: None. FINDINGS: Medial compartment: There is a small longitudinal tear extending obliquely to the intra-articular surface and the peripheral third of the posterior body of the medial meniscus. Mild partial-thickness cartilage loss with smooth chondral surface along the medial margin of the weightbearing medial femoral condyle and the medial tibial plateau. Lateral compartment: Complex tear at the body and anterior horn of the lateral meniscus. Large region of deep chondral ulceration with underlying subarticular cystlike and edema-like signal changes at the central aspect of the lateral tibial plateau. Less severe partial thickness chondral ulceration without degenerative subchondral changes along the lateral margin of the anterior weightbearing lateral femoral condyle. Patellofemoral compartment: Deep chondral fissuring with small central subchondral osteophytes at the medial patellar facet. Deep trochlear chondral ulceration and small central subchondral osteophytes centered along the mid to inferior aspect of the trochlear groove. Ligaments and tendons: Anterior and posterior cruciate ligaments are normal. The medial collateral ligament and fibular collateral ligament complex are normal. The extensor mechanism is normal. The visualized medial and lateral hamstring tendons as well as the iliotibial band are normal. Fluid: Small right knee joint effusion at the suprapatellar pouch. There is prepatellar edema without discrete bursal fluid collection. Small Barnett's cyst. No loose osteochondral bodies identified. Osseous/other: Bone alignment is normal. No fracture or pathologic marrow replacing process. IMPRESSION: 1. Complex tear of the anterior horn and body of the medial meniscus. 2. Small longitudinal oblique tear at the peripheral third of the posterior body of the medial meniscus. 3. 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 4. Small right knee joint effusion and small Barnett's cyst. Reviewed, dictated and finalized at location A. IMPRESSION: 1. Complex tear of the anterior horn and body of the medial meniscus. 2. Small longitudinal oblique tear at the peripheral third of the posterior bod y of the medial meniscus. 3. Lateral compartment predominant tricompartmental osteoarthritis, moderate se verity with prominent high-grade chondromalacia the lateral compartment and mil d with additional high-grade chondral malacia in the patellofemoral compartment . 4. Small right knee joint effusion and small Barnett's cyst.
== END 2024-10-25 09:38 | disposition home or self-care (01) ==
LOC: GOSHIMG 09:37
PROVIDERS: PCP Orthopaedic Surgery; Visit Provider Orthopaedic Surgery
DX: S83.231A Complex tear of medial meniscus, current injury, right knee, initial encounter (principal); X58.XXXA Exposure to other specified factors, initial encounter; M17.11 Unilateral primary osteoarthritis, right knee; M25.461 Effusion, right knee; M71.21 Synovial cyst of popliteal space [Baker], right knee
CPT/HCPCS: 73721

== ENCOUNTER 2024-12-29 09:47 | Outpatient (CLI) | payer MEDICARE, SELFPAY ==
[2024-12-29 10:00] LABS: Hematocrit 30.4 % (37.0-47.0); Hemoglobin 9.4 g/dL (12.0-15.0); Immature Granulocyte Percent A 0.3 % (0-0.5); Lymphocytes Absolute Auto 1.60 K/mm3 (0.9-3.2); Mean Corpuscular HGB Conc 30.9 g/dl (32-36); Mean Corpuscular Hemoglobin 28.8 pg (26-34); Mean Corpuscular Volume 93.3 fl (80-100); Nucleated Red Blood Cells Absolute Auto 0.000 K/mm3 (0.0-0.012); Nucleated Red Blood Cells Perc 0.0 % (0.0-0.2); Platelet Count Result 287 k/mm3 (150-375); Red Blood Count 3.26 M/mm3 (4.2-5.4); White Blood Count 8.8 K/mm3 (4.5-10.0)
[2024-12-29 10:14] LABS: Albumin Level 4.0 g/dL (3.5-5.1); Anion Gap 8 mmol/L (4-12); Blood Urea Nitrogen 35 mg/dL (7-17); Calcium 9.5 mg/dL (8.4-10.2); Carbon Dioxide 22 mmol/L (22-30); Chloride 107 mmol/L (98-107); Estimated Glomerular Filt Rate 25; Glucose 103 mg/dL (65-110); Potassium 4.4 mmol/L (3.4-5.0); Sodium 137 mmol/L (137-145); Uric Acid 3.8 mg/dL (2.5-7.5)
[2024-12-29 10:36] LABS: Parathyroid Intact 98.3 pg/mL (14.5-75.2)
[2024-12-29 10:39] LABS: Add Urine Microscopic? YES; Appearance Urine Turbid (Clear); Glucose Urine UA Negative (Negative); Leukocyte Esterase Ur 3+ LEU/UL (Negative); Need Manual Microscopic Reviewed; Nitrate Urine Negative (Negative); Specific Grav Ur 1.016 (1.001-1.035)
--- OUTSIDE RECORDS SUMMARY | 2024-12-29 10:45 | XMS_ITS | Encounter Summary ---
Author Organization [facility] Address [address] [place] [address] Care Team Providers Care Weighbridge Operator Name Role Phone Humble Han MD Primary Care Provider [phone] Encounter Details Date Type Department Care Team (Late st Contact Info) Description 01/05/1999 Outpatient Historical [facility] Primary Care - [place] [address] [place] [address] David Edgar, NO ADDRESS ON FILE Social History Tobacco Use Types Packs/Day Years Used Date Smoking Tobacco: Never Assessed Comments Unknown Sex and Gender Information Value Date Recorded Sex Assigned at Not on file Legal Sex Female 3: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
--- OUTSIDE RECORDS SUMMARY | 2024-12-29 10:45 | XMS_ITS | Encounter Summary ---
Author Organization [facility] Address [address] [place] [address] Care Team Providers Care Extension Worker Name Role Phone Humble Han MD Primary Care Provider [phone] Encounter Details Date Type Department Care Team (Late st Contact Info) Description 03/28/1998 Outpatient Historical [facility] Primary Care - [place] [address] [place] [address] David Edgar, NO ADDRESS ON FILE Social History Tobacco Use Types Packs/Day Years Used Date Smoking Tobacco: Never Assessed Comments Unknown Sex and Gender Information Value Date Recorded Sex Assigned at Not on file Legal 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
--- OUTSIDE RECORDS SUMMARY | 2024-12-29 10:45 | XMS_ITS | Encounter Summary ---
Author Organization [facility] Address [address] [place] [address] Care Team Providers Care Division Leader Name Role Phone Humble Han MD Primary Care Provider [phone] Encounter Details Date Type Department Care Team (Late st Contact Info) Description 01/01/1999 Outpatient Historical [facility] Primary Care - [place] 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 [place] [address] PCP - General Family Practice 02/26/12 documented as of this encounter
--- OUTSIDE RECORDS SUMMARY | 2024-12-29 10:45 | XMS_ITS | Encounter Summary ---
Author Organization [facility] Address [address] [place] [address] Care Team Providers Care Clinical Quality Assurance Associate Name Role Phone Humble Han MD Primary Care Provider [phone] Encounter Details Date Type Department Care Team (Late st Contact Info) Description 04/03/1998 Outpatient Historical [facility] Primary Care - [place] [address] [place] [address] David Edgar, NO ADDRESS ON FILE Social History Tobacco Use Types Packs/Day Years Used Date Smoking Tobacco: Never Assessed Comments Unknown Sex and Gender Information Value Date Recorded Sex Assigned at Not on file Legal Sex Female 3: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
--- OUTSIDE RECORDS SUMMARY | 2024-12-29 10:45 | XMS_ITS | Encounter Summary ---
Author Organization [facility] Address 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 Gender Identity Not on file Sexual [...] AM CDT Narrative 06/11/2007 7:28 AM CDT [address] [address] Admit Date: 06/09/2007 JEANIE DUNN Sex: F Admit Prov: DAVID GRUBBS Date: 1950 Primary Care Prov: DAVID GRUBBS CMRN: [id number] [id number] Ordering Prov: DAVID GRUBBS Accession Number: [id number] Interpretation BILATERAL FULL FIELD DIGITAL SCREENING MAMMOGRAM [...] AMK Procedure Note Sara Higgins - 06/11/2007 [facility] [address], [place] [address] Admit Date: 06/09/2007 DUNNMELITAJEANIE Sex: F Admit Prov: DAVID GRUBBS Date: 1950 Primary Care Prov: DAVID GRUBBS CMRN: [id number] [id number] [facility] Ordering Prov: DAVID GRUBBS Interpretation [...] mammogram documented in this encounter Care Teams Counter Clerk Relationship Specialty Start Date End Date Humble Han MD [address] [facility] [address] [place] [address] PCP - General Family Practice 02/26/12 documented as of this encounter
--- OUTSIDE RECORDS SUMMARY | 2024-12-29 10:45 | XMS_ITS | Encounter Summary ---
Author Organization [facility] Address [address] [place] [address] Care Team Providers Care Artificial Limb Maker Name Role Phone Humble Han MD Primary Care Provider [phone] Encounter Details Date Type Department Care Team (Latest Contact Info) Description 06/16/2007 Outpatient Historical HIS [facility] David Edgar DO NO ADDRESS ON FILE Other and Unspecified Hyperlipidemia Social History Tobacco Use Types Packs/Day Years Used Date Smoking Tobacco: Never Assessed Comments No Sex and Gender Information Value Date Recorded Sex Assigned at Not on file Legal Sex Female 3:41 AM SINKER WINDER Gender Identity Not on file Sexual [...] CDT) TSH 1.70 0.27 - 4.20 uU/mL [facility] Blood specimen (specimen) 06/16/2007 9:15 AM CDT 06/16/2007 11:08 AM CDT David Edgar DO CHEMISTRY ORDERABLES Final Result [facility] [address] [place] [address] * CBC WITH DIFFERENTIAL (06/16/2007 9:15 AM CDT) RBC 4.50 3.90 - 4.90 M/uL [facility] MCHC 31.9 31.5 - 35.5 % [facility] MCV 90.7 82.0 - 99.0 fL [facility] PLATELETS 286 140 - 350 K/uL [facility] HEMOGLOBIN 13.0 11.8 - 14.8 g/dL [facility] RDW 13.0 11.5 - 14.5 % [facility] WBC 8.8 4.0 - 9.8 K/uL [facility] MCH 28.9 27.2 - 32.6 pg [facility] MPV 10.9 9.3 - 12.4 fL [facility] HEMATOCRIT 40.8 35.5 - 44.0 % [facility] RDW-STDEV 42.6 37.1 - 48.7 fL [facility] MONOCYTES 8 3 - 13 % [facility] MONOCYTE ABSOLUTE 0.67 0.10 - 1.30 K/uL [facility] NEUTROPHILS 60 45 - 70 % [facility] NEUTROPHIL ABSOLUTE 5.25 1.90 - 7.00 K/uL [facility] EOSINOPHILS 7 0 - 7 % [facility] EOSINOPHIL ABSOLUTE 0.58 0.00 - 0.70 K/uL [facility] LYMPHOCYTES 25 16 - 45 % [facility] LYMPHOCYTE ABSOLUTE 2.17 0.70 - 4.50 K/uL [facility] BASOPHILS 1 0 - 2 % [facility] BASOPHILS ABSOLUTE 0.08 0.00 - 0.20 K/uL [facility] Blood specimen (specimen) 06/16/2007 9:15 AM CDT 06/16/2007 11:08 AM CDT David Edgar DO HEMATOLOGY ORDERABLES Edite d Performing Organization Address City/[facility]/ZIP Co de Phone Number INTERFACE SYSTEM Refer to clinic/hospital department [facility] [address] [place] [address] * HEPATIC FUNCTION PANEL (06/16/2007 9:15 AM CDT) BILIRUBIN DIRECT 0.1 0.0 - 0.3 mg/dL [facility] TOTAL PROTEIN 7.2 6.3 - 8.6 g/dL [facility] ALT 13 0 - 31 U/L [facility] BILIRUBIN TOTAL 0.2 0.2 - 1.0 mg/dL [facility] ALBUMIN 3.9 3.4 - 4.8 g/dL [facility] AST 21 12 - 32 U/L [facility] ALKALINE PHOSPHATASE 69 35 - 104 U/L [facility] Blood specimen (specimen) 06/16/2007 9:15 AM CDT 06/16/2007 11:08 AM CDT us David Edgar DO CHEMISTRY ORDERABLES Final Result Performing Organization Address City/[facility]/ZIP Co de Phone Number [facility] [address] [place] [address] * (ABNORMAL) LIPID PANEL (06/16/2007 9:15 AM CDT) TRIGLYCERIDE 137 10 - 149 mg/dL [facility] CHOL/HDL RATIO 4.1 2.0 - 5.0 [facility] HDL 53 40 - 59 mg/dL [facility] CHOLESTEROL 215(H) 100 - 199 mg/dL [facility] LDL CALCULATED 135(H) <=99 mg/dL [facility] LIPID PANEL COMMENT See Below [facility] Comment: The adult ATP and pediatric NCEP classifications for lipids are available on the [facility] Intranet at: [email or web address] Select: Lab Policies and Procedures,Current Select: Lipid Panel Interpretation Blood specimen (specimen) 06/16/2007 9:15 AM CDT 06/16/2007 11:08 AM CDT David Edgar DO CHEMISTRY ORDERABLES Edited [facility] [address] [place] [address] * (ABNORMAL) BASIC METABOLIC PANEL (06/16/2007 9:15 AM CDT) GLUCOSE 104(H) 65 - 99 mg/dL [facility] SODIUM 139 135 - 145 mmol/L [facility] CALCIUM 8.9 8.4 - 10.2 mg/dL [facility] CO2 26 22 - 30 mmol/L [facility] CREATININE 1.05(H) 0.51 - 0.95 mg/dL [facility] POTASSIUM 3.9 3.5 - 4.9 mmol/L [facility] BUN 15 6 - 20 mg/dL [facility] CHLORIDE 102 96 - 108 mmol/L [facility] GFR, >60 >=60 mL/min/1. 7 sq meter [facility] GFR 54(L) >=60 mL/min/1. 7 sq meter [facility] Comment: Estimated GFR rate interpretative information for both Americans and non- Americans is available on the [facility] Intranet at: [email or web address] Select: Lab Policies and Procedures Select: Reference Ranges - GFR Blood specimen (specimen) 06/16/2007 9:15 AM CDT 06/16/2007 11:08 AM CDT David Edgar DO CHEMISTRY ORDERABLES Edited [facility] [address] [place] [address] documented in this encounter Visit Diagnoses Diagnosis Other and unspecified hyperlipidemia documented in this encounter Care Teams Artificial Limb Maker Relationship Specialty Start Date End Date Humble Han MD [address] [place] [id number] PCP - General Family Practice 02/26/12 documented as of this encounter
--- OUTSIDE RECORDS SUMMARY | 2024-12-29 10:45 | XMS_ITS | Encounter Summary ---
Author Organization [facility] Address [address] [place] [address] Care Team Providers Care Green End Worker Name Role Phone Humble Han MD Primary Care Provider [phone] Encounter Details Date Type Department Care Team (Late st Contact Info) Description 06/23/1998 Outpatient Historical [facility] Primary Care - [place] [address] [place] [address] David Edgar, NO ADDRESS ON FILE Social History Tobacco Use Types Packs/Day Years Used Date Smoking Tobacco: Never Assessed Comments Unknown Sex and Gender Information Value Date Recorded Sex Assigned at Not on file Legal Sex Female 3: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
--- OUTSIDE RECORDS SUMMARY | 2024-12-29 10:45 | XMS_ITS | Clinical Summary ---
Author Organization [employer] [facility] Address [address] [place] [address] Phone Care Team Providers Care Gear Design Engineer Name Role Phone Humble Han MD Primary Care Provider [phone] Allergies Active Allergy Reactions Criticality Noted Date [...] on file Legal Sex Female 3:41 AM PRESCHOOL ADVISER Gender Identity Not on file Sexual Orientation [...] CDT Respiratory Rate 16 02/26/2012 9:03 AM PRESCHOOL ADVISER Oxygen Saturation 95% 11/28/2012 9:28 AM CDT [...] 2024 12/15/2012 Medical Devices Implanted Type Area Shift Commander Device Identifier Shelf Expiration Date Model / Serial / Lot Log [id number] - Bladder Slings And Tapes - 1 - Gynecare Tvt Exact Tvtrl Implanted:Qty: 1 on 02/13/2011 at [facility] Sling Bilateral: Bladder [employer] 07/18/2011 TVTRL / / [id number] Advance Directives For more information, please contact: [phone] * Full Code (Latest Code Status on File) Date Activated Date Inactivated Comments 02/13/2011 1:41 PM 02/13/2011 8:04 PM * Full Code Date Activated Date Inactivated Comments 02/13/2011 11:18 AM 02/13/2011 1:41 PM Care Teams Gear Design Engineer Relationship Specialty Start Date End Date Humble Han MD [address] [address] [place] [address] PCP - General Family Practice 02/26/12
--- OUTSIDE RECORDS SUMMARY | 2024-12-29 10:45 | XMS_ITS | Encounter Summary ---
Author Organization [facility] Address 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
--- OUTSIDE RECORDS SUMMARY | 2024-12-29 10:45 | XMS_ITS | Encounter Summary ---
Author Organization [facility] Address [address] [place] [address] Care Team Providers Care Net Finisher Name Role Phone Humble Han MD Primary Care Provider [phone] Encounter Details Date Type Department Care Team (Late st Contact Info) Description 04/11/1998 Outpatient Historical [facility] Primary Care - [place] [address] [place] [address] David Edgar, NO ADDRESS ON FILE Social History Tobacco Use Types Packs/Day Years Used Date Smoking Tobacco: Never Assessed Comments Unknown Sex and Gender Information Value Date Recorded Sex Assigned at Not on file Legal Sex Female 3:41 AM HOSPITAL CLEANER Gender Identity Not on file Sexual Orientation Not on file documented as of this encounter Plan of Treatment Not on file documented as of this encounter Visit Diagnoses Not on filedocumented in this encounter Care Teams Net Finisher Relationship Specialty Start Date End Date Humble Han MD [address] [place] [address] PCP - General Family Practice 02/26/12 documented as of this encounter
--- OUTSIDE RECORDS SUMMARY | 2024-12-29 10:45 | XMS_ITS | Encounter Summary ---
Author Organization [facility] Address [address] [place] [address] Care Team Providers Care Erector Operator Name Role Phone Humble Han MD Primary Care Provider [phone] Encounter Details Date Type Department Care Team (Late st Contact Info) Description 02/23/1999 Outpatient Historical [facility] Primary Care - [place] [address] [place] [address] David Edgar DO NO ADDRESS ON FILE Social History Tobacco Use Types Packs/Day Years Used Date Smoking Tobacco: Never Assessed Comments Unknown Sex and Gender Information Value Date Recorded Sex Assigned at Not on file Legal 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
--- OUTSIDE RECORDS SUMMARY | 2024-12-29 10:45 | XMS_ITS | Encounter Summary ---
Author Organization [facility] Address [address] [place] [address] Care Team Providers Care Security Sales Manager Name Role Phone Humble Han MD Primary Care Provider [phone] Encounter Details Date Type Department Care Team (Late st Contact Info) Description 02/15/1999 Outpatient Historical [facility] Primary Care - [place] [address] [place] [address] David Edgar, NO ADDRESS ON FILE Social History Tobacco Use Types Packs/Day Years Used Date Smoking Tobacco: Never Assessed Comments Unknown Sex and Gender Information Value Date Recorded Sex Assigned at Not on file Legal Sex Female 3:41 AM PIANO TECHNICIAN Gender Identity Not on file Sexual Orientation Not on file documented as of this encounter Plan of Treatment Not on file documented as of this encounter Visit Diagnoses Not on filedocumented in this encounter Care Teams Security Sales Manager Relationship Specialty Start Date End Date Humble Han MD [address] [place] [address] PCP - General Family Practice 02/26/12 documented as of this encounter
--- OUTSIDE RECORDS SUMMARY | 2024-12-29 10:45 | XMS_ITS | Encounter Summary ---
Author Organization [facility] Address 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
--- OUTSIDE RECORDS SUMMARY | 2024-12-29 10:45 | XMS_ITS | Encounter Summary ---
Author Organization [facility] Address [address] [place] [address] Care Team Providers Care Wharfmaster Name Role Phone Humble Han MD Primary Care Provider [phone] Encounter Details Date Type Department Care Team (Latest Contact Info) Description 07/31/2004 Outpatient Historical [facility] EV[facility] Edgar, David Garay, DO NO ADDRESS ON FILE UNSP ABNORMAL MAMMOGRAM (Primary Dx) Social History Tobacco Use Types Packs/Day Years Used Date Smoking Tobacco: Never Assessed Comments Unknown Sex and Gender Information Value Date Recorded Sex Assigned at Not on file Legal Sex Female 3:41 AM MORTGAGE MANAGER Gender Identity Not on file Sexual Orientation Not on file documented as of this encounter Plan of Treatment Not on file documented as of this encounter Visit Diagnoses Diagnosis Abnormal mammogram, unspecified- Primary documented in this encounter Care Teams Wharfmaster Relationship Specialty Start Date End Date Humble Han MD [address] [place] [address] [address] [place] [address] PCP - General Family Practice 02/26/12 documented as of this encounter
--- OUTSIDE RECORDS SUMMARY | 2024-12-29 10:46 | XMS_ITS | Encounter Summary ---
Author Organization [facility] Address [address] [place] [address] Care Team Providers Care Mold Yard Supervisor Name Role Phone Humble Han MD Primary Care Provider [phone] Encounter Details Date Type Department Care Team (Late st Contact Info) Description 10/28/2003 Outpatient Historical [facility] Primary Care - [place] [address] [place] [address] David Edgar DO NO ADDRESS ON FILE Social History Tobacco Use Types Packs/Day Years Used Date Smoking Tobacco: Never Assessed Comments Unknown Sex and Gender Information Value Date Recorded Sex Assigned at Not on file Legal Sex Female 3:41 AM TIME STUDY ANALYST Gender Identity Not on file Sexual Orientation Not on file documented as of this encounter Plan of Treatment Not on file documented as of this encounter Visit Diagnoses Not on filedocumented in this encounter Care Teams Mold Yard Supervisor Relationship Specialty Start Date End Date Humble Han MD [address] [place] [address] PCP - General Family Practice 02/26/12 documented as of this encounter
--- OUTSIDE RECORDS SUMMARY | 2024-12-29 10:46 | XMS_ITS | Encounter Summary ---
Author Organization [facility] Address [address] [place] [address] Care Team Providers Care Inclusion Special Education Teacher Name Role Phone Humble Han MD Primary Care Provider [phone] Encounter Details Date Type Department Care Team (Late st Contact Info) Description 08/07/1999 Outpatient Historical [facility] Primary Care - [place] [address] [place] [address] David Edgar DO NO ADDRESS ON FILE Social History Tobacco Use Types Packs/Day Years Used Date Smoking Tobacco: Never Assessed Comments Unknown Sex and Gender Information Value Date Recorded Sex Assigned at Not on file Legal Sex Female 3: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
--- OUTSIDE RECORDS SUMMARY | 2024-12-29 10:46 | XMS_ITS | Encounter Summary ---
Author Organization [facility] Address [address] [place] [address] Care Team Providers Care Wire Repairer Name Role Phone Humble Han MD Primary Care Provider [phone] Encounter Details Date Type Department Care Team (Late st Contact Info) Description 10/07/2001 Outpatient Historical [facility] Primary Care - [place] [address] [place] [address] David Edgar, NO ADDRESS ON FILE Social History Tobacco Use Types Packs/Day Years Used Date Smoking Tobacco: Never Assessed Comments Unknown Sex and Gender Information Value Date Recorded Sex Assigned at Not on file Legal Sex Female 3:41 AM POLYSOMNOGRAPHIC TECHNICIAN Gender Identity Not on file Sexual Orientation Not on file documented as of this encounter Plan of Treatment Not on file documented as of this encounter Visit Diagnoses Not on filedocumented in this encounter Care Teams Wire Repairer Relationship Specialty Start Date End Date Humble Han MD [address] [place] [address] PCP - General Family Practice 02/26/12 documented as of this encounter
--- OUTSIDE RECORDS SUMMARY | 2024-12-29 10:46 | XMS_ITS | Encounter Summary ---
Author Organization [facility] Address [address] [place] [address] Care Team Providers Care Arcade Technician Name Role Phone Humble Han MD Primary Care Provider [phone] Encounter Details Date Type Department Care Team (Late st Contact Info) Description 10/10/2003 Outpatient Historical [facility] Primary Care - [place] [address] [place] [address] David Edgar, NO ADDRESS ON FILE Social History Tobacco Use Types Packs/Day Years Used Date Smoking Tobacco: Never Assessed Comments Unknown Sex and Gender Information Value Date Recorded Sex Assigned at Not on file Legal Sex Female 3:41 AM DRYWALL CONTRACTOR Gender Identity Not on file Sexual Orientation Not on file documented as of this encounter Plan of Treatment Not on file documented as of this encounter Visit Diagnoses Not on filedocumented in this encounter Care Teams Arcade Technician Relationship Specialty Start Date End Date Humble Han MD [address] [place] [address] PCP - General Family Practice 02/26/12 documented as of this encounter
--- OUTSIDE RECORDS SUMMARY | 2024-12-29 10:46 | XMS_ITS | Encounter Summary ---
Author Organization [facility] Address 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
--- OUTSIDE RECORDS SUMMARY | 2024-12-29 10:46 | XMS_ITS | Encounter Summary ---
Author Organization [facility] Address [address] [place] [address] Care Team Providers Care Custody Assistant Name Role Phone Humble Han MD Primary Care Provider [phone] Encounter Details Date Type Department Care Team (Late st Contact Info) Description 07/17/2004 Outpatient Historical [facility] Primary [place] - [place] [address] [place] [address] David Edgar, NO ADDRESS ON FILE Social History Tobacco Use Types Packs/Day Years Used Date Smoking Tobacco: Never Assessed Comments Unknown Sex and Gender Information Value Date Recorded Sex Assigned at Not on file Legal Sex Female 3:41 AM GENERAL DENTIST Gender Identity Not on file Sexual Orientation Not on file documented as of this encounter Plan of Treatment Not on file documented as of this encounter Visit Diagnoses Not on filedocumented in this encounter Care Teams Custody Assistant Relationship Specialty Start Date End Date Humble Han MD [address] [place] [address] PCP - General Family Practice 02/26/12 documented as of this encounter
--- OUTSIDE RECORDS SUMMARY | 2024-12-29 10:46 | XMS_ITS | Encounter Summary ---
Author Organization [facility] Address [address] [place] [address] Care Team Providers Care Cover Remover Name Role Phone Humble Han MD Primary Care Provider [phone] Encounter Details Date Type Department Care Team (Late st Contact Info) Description 08/31/1999 Outpatient Historical [facility] Primary Care - [place] [address] [place] [address] David Edgar DO NO ADDRESS ON FILE Social History Tobacco Use Types Packs/Day Years Used Date Smoking Tobacco: Never Assessed Comments Unknown Sex and Gender Information Value Date Recorded Sex Assigned at Not on file Legal Sex Female 3:41 AM GLASS EDGER Gender Identity Not on file Sexual Orientation Not on file documented as of this encounter Plan of Treatment Not on file documented as of this encounter Visit Diagnoses Not on filedocumented in this encounter Care Teams Cover Remover Relationship Specialty Start Date End Date Humble Han MD [address] [place] [address] PCP - General Family Practice 02/26/12 documented as of this encounter
--- OUTSIDE RECORDS SUMMARY | 2024-12-29 10:46 | XMS_ITS | Encounter Summary ---
Author Organization [facility] Address [address] [place] [address] Care Team Providers Care Road Driver Name Role Phone Humble Han MD Primary Care Provider [phone] Encounter Details Date Type Department Care Team (Late st Contact Info) Description 06/11/2005 Outpatient Historical [facility] [place] [address] [place] [address] David Edgar, NO ADDRESS ON FILE Social History Tobacco Use Types Packs/Day Years Used Date Smoking Tobacco: Never Assessed Comments Unknown Sex and Gender Information Value Date Recorded Sex Assigned at Not on file Legal Sex Female 3:41 AM YARN PACKER Gender Identity Not on file Sexual Orientation Not on file documented as of this encounter Plan of Treatment Not on file documented as of this encounter Visit Diagnoses Not on filedocumented in this encounter Care Teams Road Driver Relationship Specialty Start Date End Date Humble Han MD [address] [place] [address] PCP - General Family Practice 02/26/12 documented as of this encounter
--- OUTSIDE RECORDS SUMMARY | 2024-12-29 10:46 | XMS_ITS | Encounter Summary ---
Author Organization [facility] Address [address] [place] [address] Care Team Providers Care Director Medical Science Name Role Phone Humble Han MD Primary Care Provider [phone] Encounter Details Date Type Department Care Team (Late st Contact Info) Description 03/19/2004 Outpatient Historical [facility] Primary Care - [place] [address] [place] [address] Audra Burgos MD NO ADDRESS ON FILE Social History Tobacco Use Types Packs/Day Years Used Date Smoking Tobacco: Never Assessed Comments Unknown Sex and Gender Information Value Date Recorded Sex Assigned at Not on file Legal Sex Female 3:41 AM BABCOCK TESTER Gender Identity Not on file Sexual Orientation Not on file documented as of this encounter Plan of Treatment Not on file documented as of this encounter Visit Diagnoses Not on filedocumented in this encounter Care Teams Director Medical Science Relationship Specialty Start Date End Date Humble Han MD [address] [place] [address] PCP - General Family Practice 02/26/12 documented as of this encounter
--- OUTSIDE RECORDS SUMMARY | 2024-12-29 10:46 | XMS_ITS | Data Portability ---
Author Organization [place] [facility], Main Office Address [address] [place] [address] Care Team Providers Care Clothing Examiner Name Role Phone CHANDA DURHAM Primary Care Provider [phone] CHANDA DURHAM Referring Provider CHANDA DURHAM Primary Care Provider Assessment Encounter Date Assessment Date Assessment LastModified by Organization Details LastModified Time 07/26/2024 07/26/2024 74-year-old emilio cannon presents for follow-up of her right [...] She is in agreement with the plan. Not available 07/27/2024 16:59:09 10/06/2024 10/06/2024 74-year-old emilio cannon presents for follow-up of her right knee. We did a cortisone injection at her last visit in July. she reports this helped for about 3 weeks. She still has significant pain, currently rated as 10/10. Mildly antalgic gait. Tenderness over the medial and lateral joint lines. Range of motion 0-120 x-rays demonstrate mild degenerative changes with joint space narrowing, small osteophyte Given her failure of conservative management so far including cortisone injection, we discussed next steps could either be to discuss a gel injection, or given that she only has mild degenerative changes we can try to get an MRI to evaluate for other causes of her pain such as a meniscus tear. She can not take oral anti-inflammatorie s because of kidney issues so she should continue doing the Voltaren. We will also give her a home exercise program in the meantime since she is active. We discussed that given the cortisone injection only lasted a few weeks I would not recommend a repeat injection, but depending on the results of the scan we can discuss either arthroscopy for a cleanout or gel injections at that time. She is in agreement with the plan. Not available 10/06/2024 11:44:51 11/10/2024 11/10/2024 74-year-old emilio cannon presents for follow-up of her right knee. She got an MRI and is here to review that. She reports that she has been modifying her activity and resting, this has helped him feel better, she currently rates her pain as 6/10. She has been doing a home exercise program, also taking Tylenol and using Voltaren. She is status palpation of the mediolateral joint line. Range of motion 0-130. Stable ligaments. Nonantalgic gait. 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 We discussed treatments options including gel injections or surgery for arthroscopy and meniscectomy, which would primarily be for mechanical symptoms. We will plan to proceed with a gel injections and see her back when those are authorized. She is in agreement with the plan. Not available 11/10/2024 13:52:50 12/27/2024 12/27/2024 74-year-old emilio cannon presents for follow-up of her right knee. We saw about a month and a half ago and she had failed other conservative measures at that time. We discussed a cortisone injection she is here to get those today. Nonantalgic gait. Tenderness over the mediolateral joint line. Range of motion 0-130. Stable ligaments. She wanted to proceed with the gel injections today. She tolerated them well. We will see her back in 6 months, or sooner as needed. We discussed if she can get these injections every 6 months. She may continue activities as tolerated. She should continue doing anti-inflammatorie s and her exercises. Not available 12/27/2024 13:23:54 Plan of Treatment Reminders Order Date Submit Date Provider Last Modified By Organization Details Last Modified Time Details Appointments Medicare Wellness 15 2024 09:15A M Chanda Durham MD Not available Not available Not available Lab None recorded. Referral None recorded. Procedures knee aspiratio n/injecti on (PROC) 2024 025 [email or web address] In-Office Order, Internal Use Only DO Not Attach Compendium DO Not Attach Compendium, Do Not Delete/merge, [id number] 12/27/2024 12:11:41 injection /aspirati on joint/bur sa (PROC) 2024 025 [email or web address] In-Office Order, Internal Use Only DO Not Attach Compendium DO Not Attach Compendium, Do Not Delete/merge, [id number] 07/26/2024 12:11:09 Surgeries None recorded. Imaging MRI, knee, w/o contrast - Please provide pt with disc of images to bring to apt. thanks 2024 025 [facility], [address], [place], [address], 11/03/2024 16:40:59 Medication Orders allopurin ol 300 mg tablet 2024 025 [id number], [address], [place], [address], 09/16/2024 10:32:11 bupivacai ne HCl 0.5 % (5 mg/mL) injection solution 2024 025 [email or web address] [email or web address] [id number], [facility] [place], [address], 09/16/2024 10:06:40 Kenalog 10 mg/mL suspensio n for injection 2024 025 [email or web address] [email or web address] [facility] [id number], [address], 09/16/2024 10:06:45 Patient TargetsNo targets recorded. Patient Instructions Encounter Date Encounter Id Patient Instructions Last Modified By Organization Details Last Modified Time 09/16/2024 [id number] Exercise discuss ed, physical activity handouts given Dietary counseling given, nutrition handouts given [email or web address] Not available 09/16/2024 10:07:52 11/10/2024 [id number] viscosupplementa tion treatment* - R knee [email or web address] Not available 11/24/2024 08:39:13 Reason for Referral None Reported. Results Created Date Observation Date Name Description Value Unit Range Abnormal Flag Note LastModifiedBy Organization Detail LastModifiedTime 09/01/1908/31/2024 MAMMO , scree lillie, digit al, bilat eral No observ ation record ed. [email or web address] Not Available 2024 15:33:39 09/04/19 25 08/30/2024 DEXA No observ ation record ed. [email or web address] [facility] (Imaging) [address], [place], [address], 09/09/2024 16:14:56 11/04/19 25 10/25/2024 MRI, knee, w/o contr ast No observ ation record ed. [email or web address] [facility] [address], [place], [address], 11/04/2024 08:31:09 Result Notes None recorded. Problems Name Problem SNOMED Code Status Onset Date Resolution Date Notes Provider Name and Address Organization Details Recorded Time Chronic obstructi ve pulmonary disease 02748553 Completed Not Available [facility] 3 04:47:35 Chronic depressio n 118450221 Active Not Available [facility] 4 10:58:01 Asthma 938614799 Active Not Available [facility] 4 10:58:01 Gastroeso phageal reflux disease 073317794 Active Not Available [facility] 4 10:58:01 Obesity 867477905 Active Not Available [facility] 4 10:58:01 Upper respirato ry infection 28016878 Completed Not Available [facility] 3 04:47:36 Hyperlipi demia 43117373 Active Not Available [facility] 4 10:58:01 Essential hypertens ion 52804906 Active Not Available [facility] 4 10:58:01 Allergic rhinitis 10874974 Active Not Available [facility] 4 10:58:01 Gout 48147473 Active Not Available [facility] 4 10:58:01 Kidney disease 06172056 Active Not Available [facility] 4 10:58:01 Disorder of skin 71777076 Completed Not Available [facility] 3 04:47:37 Malignant neoplasm of skin 300554325 Active 2016 Not Available [facility] 4 10:58:01 Overactiv e urinary bladder 339368464 Active 2020 Not Available [facility] 4 10:58:01 Screening mammograp hy Completed 202111/09/2021 Not Available [facility] 3 04:47:36 Adult health examinati on Active 2021 Not Available [facility] 4 10:58:01 Osteopeni a 496279300 Active 2021 Not Available [facility] 4 10:58:01 Fatigue 15323573 Active 2021 Not Available [facility] 4 10:58:01 COVID-19 480604623 Completed 202111/09/2021 RIKA Fernandes, [place] [facility] 5 15:12:12 Screening for osteoporo sis Completed 202103/07/2022 Not Available [facility] 3 04:47:36 Diabetes mellitus 82385979 Active 2021 Not Available [facility] 4 10:58:01 Bilateral cataracts 74661406 Active 2022 Not Available [facility] 4 10:58:01 Bilateral tinnitus 53878203973 02 Active 2022 Not Available [facility] 4 10:58:01 Acute sinusitis 40487810 Active 2022 Not Available [facility] 4 10:58:01 Pruritic rash 62849482 Active 2023 Chanda Durham MD [address] [facility] [address], [place], [address] , [facility] 4 10:22:06 Pain of right knee joint 70875054752 4100 Active 2023 DAVID Sarmiento null, [facility] 5 11:06:12 Osteoarth ritis of right knee joint 01801370873 9100 Active 2024 DAVID Sarmiento, [facility] 5 11:06:34 Pain of right knee region 83283546283 4105 Active 2024 DAVID Sarmiento null, [facility] 5 11:35:19 Acute COVID-19 7569613454 Active 2024 ALEAH Cassidy [address] [facility] [address], [place], [address] , [facility] 5 12:24:15 COVID-19 524008394 Active 2024 Mary Lay MA null, [facility] 5 15:12:12 Problem Notes Documentation Provider Name and Address Organization Details Recorded Time Orthopedic Surgeon Consult Note : [facility] [address] [place] [id number], Dianne (id #[id number], : 1950) Documents sent [...] received this fax in error, please visit [email or web address] to notify the sender and confirm that the information will be destroyed. If you do not have internet access, please call to notify the sender and confirm that the information will be destroyed. Thank you for your attention and cooperation. [ID:[id number]] , Date: 07/27/2024RE: Earnest Camacho MD, I [...] Sincerely, Electronically Signed by: JIL SALAZAR MD Assessment/Spqb24-esab-zhp female presents for follow-up of her right [...] with the plan. 1.Right knee pain, unspecified ufzlrfhiarD23.561: Pain in right knee bupivacaine HCl 0.5 % (5 mg/mL) injection solution - Take 20 mg by injection route. Quantity: (20) mg Lot #: [id number] Route: Injection Exp Date: 01/16/2025 Administered Kenalog 10 mg/mL suspension for injection - Take 10 mg by injection route. Quantity: (10) mg Lot #: [id number] Route: Injection Exp Date: 10/18/2026 Administered INJECTION/ASPIRATION JOINT/BURSA (PROC) Return to Office Chanda Durham MD for Any 15 at [facility] Internal Med [facility] on 08/30/2024 at 08:45 AM Jil Salazar MD for Any 5 at [facility] on 09/27/2024 at 09:45 AM ALEAH Cassidy [address] [place] [address], [place], [address], [facility] 07/28/2024 11:47:21 Orthopedic Surgeon Consult Note : [facility] [address], [facility] [id number], Dianne (id #[id number], : 1950) Documents sent [...] received this fax in error, please visit [email or web address] to notify the sender and confirm that the information will be destroyed. If you do not have internet access, please call to notify the sender and confirm that the information will be destroyed. Thank you for your attention and cooperation. [ID:[id number]] , Date: 10/06/2024RE: Earnest Camacho MD, I would like to thank you for referring Conchis Serrano to me for consultation and evaluation of Followup: Pain of right knee joint , on 10/06/2024. I have enclosed a copy of the office assessment and plan for your records. Once again, thank you for allowing me to participate in the care of this patient. Sincerely, Electronically Signed by: JIL SALAZAR MD Assessment/Dyfv16-zdqi-zbm female presents for follow-up of her right knee. We did a cortisone injection at her last visit in July. she reports this helped for about 3 weeks. She still has significant pain, currently rated as 10/10. Mildly antalgic gait. Tenderness over the medial and lateral joint lines. Range of motion 0-120 x-rays demonstrate mild degenerative changes with joint space narrowing, small osteophyte Given her failure of conservative management so far including cortisone injection, we discussed next steps could either be to discuss a gel injection, or given that she only has mild degenerative changes we can try to get an MRI to evaluate for other causes of her pain such as a meniscus tear. She can not take oral anti-inflammatories because of kidney issues so she should continue doing the Voltaren. We will also give her a home exercise program in the meantime since she is active. We discussed that given the cortisone injection only lasted a few weeks I would not recommend a repeat injection, but depending on the results of the scan we can discuss either arthroscopy for a cleanout or gel injections at that time. She is in agreement with the plan. 1. Pain of right knee joint- Onset: 01/01/2024M25.561: Pain in right knee MRI, KNEE, W/O CONTRAST - Note to Imaging Facility: Please provide pt with disc of images to bring to apt. thanks Side: RIGHT Area of interest: knee Height (ft.): 5 ft 5 in Weight (lbs): 190 Return to Office Chanda Durham MD for Any 15 at [facility] Internal [facility] on 01/17/2025 at 09:15 AM YAEL Cassidy-Tawana [address] [facility], [facility] [address], [place], [address], [place] [facility] 10/06/2024 14:43:37 Orthopedic Surgeon Consult Note : [facility] [address], [place] [address]EUQXAH, Dianne (id #[id number], : 1950) Documents sent [...] received this fax in error, please visit [email or web address] to notify the sender and confirm that the information will be destroyed. If you do not have internet access, please call to notify the sender and confirm that the information will be destroyed. Thank you for your attention and cooperation. [ID:[id number]] , Date: 11/10/2024RE: Earnest Camacho MD, I would like to thank you for referring Conchis Serrano to me for consultation and evaluation of Followup: Pain of right knee joint , on 11/10/2024. I have enclosed a copy of the office assessment and plan for your records. Once again, thank you for allowing me to participate in the care of this patient. Sincerely, Electronically Signed by: JIL SALAZAR MD Assessment/Noaz98-petu-vth female presents for follow-up of her right knee. She got an MRI and is here to review that. She reports that she has been modifying her activity and resting, this has helped him feel better, she currently rates her pain as 6/10. She has been doing a home exercise program, also taking Tylenol and using Voltaren. She is status palpation of the mediolateral joint line. Range of motion 0-130. Stable ligaments. Nonantalgic gait. 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 We discussed treatments options including gel injections or surgery for arthroscopy and meniscectomy, which would primarily be for mechanical symptoms. We will plan to proceed with a gel injections and see her back when those are authorized. She is in agreement with the plan. 1. Pain of right knee joint- Onset: 01/01/2024M25.561: Pain in right knee VISCOSUPPLEMENTATION TREATMENT* - Note to Provider: R knee Return to Office Chanda Durham MD for Any 15 at [facility] Internal [facility] on 01/17/2025 at 09:15 AM ALEAH Cassidy [address] [facility] [address], [place], [address], [facility] 11/10/2024 15:56:57 Orthopedic Surgeon Consult Note : [facility] [address], [address], [facility] [address]UFNLZH, Dianne (id #[id number], : 1950) Documents sent [...] received this fax in error, please visit [email or web address] to notify the sender and confirm that the information will be destroyed. If you do not have internet access, please call to notify the sender and confirm that the information will be destroyed. Thank you for your attention and cooperation. [ID:[id number]] , Date: 12/27/2024RE: Earnest Camacho MD, I would like to thank you for referring Conchis Serrano to me for consultation and evaluation of Followup: Osteoarthritis of right knee joint , on 12/27/2024. I have enclosed a copy of the office assessment and plan for your records. Once again, thank you for allowing me to participate in the care of this patient. Sincerely, Electronically Signed by: IJL SALAZAR MD Assessment/Dzst30-rzrt-jnx female presents for follow-up of her right knee. We saw about a month and a half ago and she had failed other conservative measures at that time. We discussed a cortisone injection she is here to get those today. Nonantalgic gait. Tenderness over the mediolateral joint line. Range of motion 0-130. Stable ligaments. She wanted to proceed with the gel injections today. She tolerated them well. We will see her back in 6 months, or sooner as needed. We discussed if she can get these injections every 6 months. She may continue activities as tolerated. She should continue doing anti-inflammatories and her exercises. 1.Osteoarthritis of right knee, unspecified osteoarthritis type- Onset: 05/24/2024M17.11: Unilateral primary osteoarthritis, right knee KNEE ASPIRATION/INJECTION (PROC) Return to Office Chanda Durham MD for Medicare Wellness 15 at [facility] on 01/17/2025 at 09:15 AM at [facility] on or around 05/27/2025 ALEAH Cassidy [address], [place], [address], [facility] 12/27/2024 22:07:05 Procedures Surgical History Date Name Laterality Status Provider Name and Address Organization Details Recorded Time 12/28/19 25 Synvisc Injection completed Jil Salazar MD [address], [place], [address], [facility] 12/27/2024 13:24:32 07/27/19 25 Ortho - Cortisone Injection completed Jil Salazar MD [address] [facility], [address] [address], [place], [address], [facility] 07/27/2024 16:59:21 10/18/19 23 Medicare Wellness CPT Code, subsequent completed Laurel Gonzalez RN [facility] [employer] [facility] 10/17/2022 10:38:26 10/18/19 23 Advanced Care Planning completed Laurel Gonzalez RN [facility] [employer] [facility] 10/17/2022 10:45:57 12/05/19 22 Date of Last Mammogram completed Laurel Gonzalez RN [facility] [employer] [facility] 10/17/2022 10:40:29 12/05/19 22 Most Recent Bone Density completed Laurel Gonzalez RN [facility] [employer] [facility] 10/17/2022 10:40:50 section completed Not Available [facility] 04/17/2022 04:41:48 extraction of wisdom tooth completed Not Available [facility] 04/17/2022 04:41:48 Total hysterectomy completed Not Available [facility] 04/17/2022 04:41:48 extraction of cataract completed Debbie Quinn RN [facility] [employer] [facility] 05/21/2023 11:17:33 Imaging Results None recorded. [...] Not available Not available Not available 04/17/2022 [id number] SNOMED unkno wn Not Available [facility] 04:55:30 Medications Name Sig Start Date Stop [...] solution Take 20 mg by injection route. 09/16 completed Not Available Not Available Not Available [...] injection Take 10 mg by injection route. 09/16 completed [facility]: [phone] [phone] Not Available Not Available Not Available meclizine 25 mg tablet Take 1 tablet 3 times a day by oral route as needed. active Not Available Not Available No t Available cephalexin 500 mg capsule TAKE 1 CAPSULE BY MOUTH TWICE A DAY active Not Available Not [...] TAKE 1 TABLET BY MOUTH EVERY DAY active Not Available Not Available No t Available mupirocin 2 % topical ointment APPLY 1 GRAM TOPICALLY 2 TO 3 TIMES DAILY 09/14 completed Not Available Not Available Not Available ergocalcife rol (vitamin D2) 1,250 mcg (50,000 unit) capsule TAKE 1 CAPSULE BY MOUTH ONCE A WEEK active Not Available Not Available No t Available clobetasol 0.05 % topical ointment APPLY [...] NS BY MOUTH EVERY 4 HOURS NEEDED 2024 active GALILEA: - NOV: Not Available Not Available Not Available cefdinir 300 mg capsule 04/21 completed [...] TAKE 1 TABLET BY MOUTH EVERY DAY active Not Available Not Available No t Available Symbicort 80 mcg-4.5 mcg/actuati on HFA aerosol inhaler USE 2 INHALATIO NS BY MOUTH TWICE DAILY active Not Available Not Available No t Available Synvisc-One 48 mg/6 mL intra-artic ular syringe Take 1 mL by intraarti cular route. 2024 active Not Available Not Available Not Avai lable Fluvirin 5190-1771 45 mcg (15 mcg x 3)/0.5 mL [...] Not Available Not Available Fluzone High-Dose Quad 2019- (PF) 240 mcg/0.7 mL IM syringe active Not Available Not Available N ot Available Paxlovid 150 mg-100 mg tablets in a dose pack (Moderate Renal Dose) TAKE DIRECTED ON [employer] . active Not Available Not Available No t Available Vitals Date Recorded Body height Body mass index (BMI) Body weight Pain severity - 0-10 verbal numeric rating [Score] - Reported Provider Name and Address Organization Details Last Updated DateTime 07/26/2024 165.1 cm 31.6 kg/m2 42478.55 g 8 Christie Zpaata [employer] [facility] 07/26/2024 11:34:36 Date Recorded Body weight Body mass index (BMI) Body height Body temperature Heart rate Oxygen saturation Oxygen saturation in Arterial blood by Pulse oximetry Systolic And Diastolic Provider Name and Address Organization Details Last Updated DateTime 81559.5 5 g 11 kg/m2 279.4 cm 97.4 [degF] 84 /min 96 % 96 % 134/80 mm[Hg] Sheyla Triciajimmy irving [employer] 10:06:28 Date Recorded Body height Body mass index (BMI) Body weight Pain severity - 0-10 verbal numeric rating [Score] - Reported Provider Name and Address Organization Details Last Updated DateTime 10/06/2024 165.1 cm 31.6 kg/m2 49586.55 g 10 Christie Zapata [employer] [facility] 10/06/2024 11:11:32 Date Recorded Body height Body mass index (BMI) Body weight Pain severity - 0-10 verbal numeric rating [Score] - Reported Provider Name and Address Organization Details Last Updated DateTime 11/10/2024 165.1 cm 31.6 kg/m2 30075.55 g 6 Christie Zapata [employer] [facility] 11/10/2024 11:06:28 Date Recorded Body height Body mass index (BMI) Body weight Provider Name and Address Organization Details Last Updated DateTime 12/27/2024 165.1 cm 31.6 kg/m2 05429.55 g Christie Zapata [employer] [facility] 12/27/2024 12:10:21 Social History Question Answer Notes LastModified by Organizat ion Details LastModified Time Tobacco Smoking Status Never Smoker Not Available [facility] 04/17/2022 04:21:02 Do You Have An Advance Directive? No [id number] Information not available 04/17/2022 Are You Blind Or Do You Have Difficulty Seeing? No [id number] Information not available 04/17/2022 How Much Tobacco Do You Chew? None [id number] Information not available 04/17/2022 Are You Deaf Or Do You Have Serious Difficulty Hearing? No MIGRATION.[id number] 026 Information not available 04/17/2022 What Type Of Diet Are You Following? REGULAR MIGRATION.7544612 026 Information not available 04/17/2022 Which Illicit Or Recreational Drugs Have You Used? None MIGRATION.[id number] 026 Information not available 04/17/2022 Have There Been Any Changes To Your Family Or Social Situation? No MIGRATION.7579133 026 Information not available 04/17/2022 What Is The Fluoride Status Of Your Home? Fluoridated MIGRATION.[id number] 026 Information not available 04/17/2022 Where Do You Live? Apartment MIGRATION.[id number] 026 Information not available 04/17/2022 Presence Of Domestic Violence No Information no t available 10/17/2022 Are You Able To Care For Yourself? Yes [email or web address] Information not available 10/17/2022 Are You Blind Or Do Yo Have Difficulty Seeing? No [email or web address] Information not available 10/17/2022 Are You Deaf Or Do You Have Serious Difficulty Hearing? No [email or web address] Information not available 10/17/2022 General Stress Level? Moderate [email or web address] Information not available 10/17/2022 Live Alone Of With Others? With Others [email or web address] Information not available 10/17/2022 What Was The Date Of Your Most Recent Tobacco Screening? 11/10/2024 [email or web address] Information not available 11/10/2024 Do You Have Any Pets? No MIGRATION.6003317 026 Information not available 04/17/2022 What Is Your Relationship Status? [email or web address] Information not available 10/17/2022 Do You Use Your Seat Belt Or Car Seat Routinely? Yes MIGRATION.5284977 026 Information not available 04/17/2022 Do You Have Smoke And Carbon Monoxide Detectors In Your Home? Yes MIGRATION.4816447 026 Information not available 04/17/2022 Are You Passively Exposed To Smoke? No MIGRATION.7428730 026 Information not available 04/17/2022 Are There Any Smokers In Your House? No MIGRATION.4715463 026 Information not available 04/17/2022 Do You Use Sunscreen Routinely? Yes MIGRATION.2477164 026 Information not available 04/17/2022 Do You Have Difficulty Walking Or Climbing Stairs? No MIGRATION.9909216 026 Information not available 04/17/2022 Sex: Unknown Functional Status Question Answer Note LastModified by [facility] Details LastModified Time What is your level of alcohol consumption? Occasional MIGRATION.675046 9306 Information not available 04/17/2022 Do you or have you ever used smokeless tobacco? Never used smokeless tobacco MIGRATION.402687 7894 Information not available 04/17/2022 Do you have transportation difficulties? No MIGRATION.702294 9379 Information not available 04/17/2022 Are you able to walk independently without assistance or assistive devices? YESWOREST MIGRATION.954409 0097 Information not available 04/17/2022 Do you have difficulty doing errands alone? No MIGRATION.594649 7083 Information not available 04/17/2022 Are you able to care for yourself independently? 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 No MIGRATION.361272 1230 Information not available 04/17/2022 Do you or have you ever used e-cigarettes or vape? Never used electronic cigarettes MIGRATION.174142 9142 Information not available 04/17/2022 What is your exercise level? Occasional MIGRATION.331180 9153 Information not available 04/17/2022 Mental Status Question Answer Note LastModified by [facility] [facility] Details LastModified Time Do you feel stressed (tense, restless, nervous, or anxious, or unable to sleep at night)? [id number] beginning to have signs for dementia MIGRATION.859964 0910 Information not available 04/17/2022 Do you have difficulty concentrating, remembering or making decisions? No MIGRATION.676175 5735 Information not available 04/17/2022 Family History Relationship Description Onset Age of this Age Resolved Age Notes LastModified by Organization Details LastModified Time Sister Heart disease [id number] Not available 04/17/2022 04:41:50 Brother Heart disease MIGRATION.[id number] Not available 04/17/2022 04:41:50 Notes:PT IS ADOPTED [...] and Address Organization Details Recorded Time Influenza, high-dose, quadrivalent, PF 2 completed Not Available [facility] 09/16/2024 09:58:19 Influenza, adjuvanted, quadrivalent, PF 4 completed Not Available [facility] 09/16/2024 09:58:19 Influenza, high-dose, trivalent, PF 4 completed Not Available [facility] 09/16/2024 09:58:19 Influenza, split virus, trivalent, PF 4 completed Not Available [facility] 03/27/2023 10:58:01 COVID-19, mRNA, LNP-S, PF, 30 mcg/0.3 mL dose 1 completed Not Available [facility] 03/27/2023 10:58:01 Influenza, high-dose, quadrivalent, PF 1 completed Not Available [facility] 03/27/2023 10:58:01 SARS-COV-2 (COVID-19) vaccine, UNSPECIFIED 1 completed Not Available [facility] 03/27/2023 10:58:01 Influenza, high-dose, trivalent, PF 0 completed Not Available [facility] 03/27/2023 10:58:01 influenza, unspecified formulation 8 completed Not Available [facility] 03/27/2023 10:58:01 Influenza, high-dose, trivalent, PF 6 completed Not Available [facility] 03/27/2023 10:58:01 Influenza, high-dose, trivalent, PF 9 completed Not Available [facility] 03/27/2023 10:58:01 influenza, unspecified formulation 7 completed Not Available [facility] 03/27/2023 10:58:01 Pneumococcal conjugate PCV 13 7 completed Not Available [facility] 03/27/2023 10:58:01 pneumococcal polysaccharide PPV23 5 completed Not Available [facility] 03/27/2023 10:58:01 Past Encounters Encounter ID Performer Location Encounter Start Date Encounter Closed Date Diagnosis/Indication Diagnosis SNOMED-CT Code Diagnosis ICD10 Code Diagnosis IMO Codes Diagnosis Note [id number] Chanda Durham MD [facility] [address] [place] [address] 06/21/2020 00:00:00 06/21/2020 11:03:29 [id number] Chanda Durham MD [facility] [address] [place] [address] 10/19/2020 00:00:00 10/19/2020 10:50:24 [id number] Chanda Durham MD [facility] [address] [facility] [place] [address] 12/25/2020 00:00:00 12/25/2020 15:57:37 [id number] Chanda Durham MD [facility] [address] [facility] [place] [address] 03/16/2021 00:00:00 03/16/2021 14:28:34 [id number] Chanda Durham MD [facility] [address] [facility] [place] [address] 07/12/2021 00:00:00 07/12/2021 13:03:10 [id number] Chanda Durham MD [facility] [address] [place] [address]. [place] [address] 11/12/2021 00:00:00 11/12/2021 10:07:51 [id number] MD CAITLIN [facility] [address] [place] [address]. [place] [address] 03/11/2022 00:00:00 03/11/2022 10:20:18 [id number] MD CAITLIN [facility] [address] [facility] [place] [address] 06/03/2022 11:03:00 06/03/2022 12:04:07 Essential hypertension 77903153 I10 under control Diabetes mellitus 943883 09 E11.9 diet controlled Hyperlipidemia 03013303 E78.5 labs good Asthma 556726363 J45.90 9 under control Gastroesop hageal reflux disease 273919472 K21.9 under control Gout 70153058 M10.9 stable Allergic rhinitis 029387 04 J30.9 otc Kidney disease 02515714 N08 stable GFR, drinking more water Overactive urinary bladder 940151364 N32.81 using pads Osteopenia 030278246 M85 .80 on ca/vit d Adult heal th examination 826810779 Z00.00 adult health examinatio nColonosco py- 10yrs ago and was orderedDex a- 11/2021Mam mogram- 11/2021Has had pneumovax and prevnarFLU - ovid -had all 3 Obesity 316242643 E66.9 advised to lose more weight Chronic depression 15883 0009 F34.1 stable Malignant neoplasm of skin 251868859 C44.90 needs f/u with dermatolog ist, again discussed Pre-surger y evaluation 686894360 Z01.818 low risk Bilateral tinnitus 52625 11691 102 H93.13 ENT if not better in a month [id number] Chanda Durham MD [facility] [address] [place] [address] 10/17/2022 09:49:58 10/17/2022 10:35:03 Essential hypertension 89600247 I10 under control Diabetes mellitus 975937 09 E11.9 diet controlled Hyperlipidemia 66927754 E78.5 labs Asthma 209061210 J45.90 9 under control Gastroesop hageal reflux disease 236599813 K21.9 under control Gout 41908729 M10.9 stable Allergic rhinitis 647795 04 J30.9 ot Kidney disease 86349522 N08 stable GFR, Overactive urinary bladder 999568283 N32.81 try Gemtesa samples Osteopenia 343981809 M85 .80 on otc Adult heal th examination 062476123 Z00.00 adult health examinatio nColonosco py- 10yrs ago and was orderedDex a- 11/2021Mam mogram- 11/2021Has had pneumovax and prevnarFLU - 2Covid -had all 3 Obesity 097977342 E66.9 advised to lose weight Chronic depression 41174 0009 F34.1 stable Malignant neoplasm of skin 322821274 C44.90 needs f/u with dermatolog ist, again discussed, willing Bilateral tinnitus 52912 14677 102 H93.13 miold Screening for malignant neoplasm of colon 618107861 Z12.11 Screening mammography 24 672823 Z12.31 Screening for disorder 759760071 Z13.9 [id number] Chanda Durham MD [facility] Internal Med [facility] [address] [place] [address] 12/18/2022 10:48:23 12/18/2022 11:21:49 Acute sinusitis 90035290 J01.90 [id number] Chanda Durham MD [facility] Internal Med [facility] [address] [place] [address] 04/10/2023 10:06:33 04/10/2023 11:14:01 Essential hypertension 79101948 I10 under control Diabetes mellitus 580705 09 E11.9 diet controlled , under control Hyperlipidemia 79181264 E78.5 labs good Asthma 986380924 J45.90 9 under control Gastroesop hageal reflux disease 939984391 K21.9 under control Gout 69055424 M10.9 stable Allergic rhinitis 386577 04 J30.9 ot Kidney disease 96907796 N08 GFR 50 Overactive urinary bladder 870886882 N32.81 pads Osteopenia 503671803 M85 .80 on ot Adult heal th examination 175920652 Z00.00 adult health examinatio nColonosco py- 10yrs ago and was orderedDex a- 11/2021Mam mogram- 11/27/22Ha s had pneumovax and prevnarFLU - 2Covid -had all 3 Obesity 597594720 E66.9 advised to lose weight Chronic depression 96954 0009 F34.1 stable Malignant neoplasm of skin 554997650 C44.90 needs f/u with dermatolog ist, again discussed, Bilateral tinnitus 52042 48123 102 H93.13 symptoms getting worse [id number] Jonathan Martino MD [facility] ENT Luiza Espinoza [address] [place] [address] 05/21/2023 11:01:34 05/22/2023 09:50:44 Bilateral tinnitus 2865691186 102 H93.13 [id number] Chanda Durham MD [facility] Internal Med [address] [place] [address] 09/15/2023 09:41:37 09/15/2023 10:28:12 Essential hypertension 62011337 I10 under control Diabetes mellitus 343877 09 E11.9 diet controlled , under control Hyperlipidemia 52114998 E78.5 labs good Asthma 631706738 J45.90 9 under control Gastroesop hageal reflux disease 656866876 K21.9 under control Gout 31685223 M10.9 stable Allergic rhinitis 817833 04 J30.9 otc Kidney disease 75523374 N08 GFR 50 Overactive urinary bladder 844564276 N32.81 pads Osteopenia 669421654 M85 .80 on otc Adult heal th examination 743235965 Z00.00 Colonoscop y- had it in the past, due but does not want any moreDexa- 11/2021Mam mogram- 11/27/22Ha s had pneumovax and prevnarFLU - 2022- per ptCovid -had all 3 Obesity 459033858 E66.9 advised to lose weight Chronic depression 65700 0009 F34.1 stable Malignant neoplasm of skin 185836770 C44.90 needs f/u with dermatolog ist, again discussed, Pruritic rash 02434955 L 28.2 [id number] Chanda Durham MD [facility] Internal Med [address] [place] [address] 01/01/2024 09:19:15 01/01/2024 09:59:23 Essential hypertension 62356642 I10 under control Diabetes mellitus 606919 09 E11.9 diet controlled , under control Hyperlipidemia 06184005 E78.5 labs Asthma 909217197 J45.90 9 under control Gastroesop hageal reflux disease 685184146 K21.9 under control Gout 54839195 M10.9 stable Allergic rhinitis 400600 04 J30.9 ot Kidney disease 91106251 N08 GFR better Overactive urinary bladder 393407595 N32.81 pads Osteopenia 546794166 M85 .80 on ot Adult [facility] examination 711878885 Z00.00 Colonoscop y- had it in the past, due but does not want any moreDexa- 11/2021Mam mogram- 11/27/22Ha s had pneumovax and prevnarFLU - 11/2023 ([facility])Covid -had all 3 Obesity 931258039 E66.9 advised to lose weight Chronic depression 93422 0009 F34.1 stable Malignant neoplasm of skin 276682271 C44.90 needs f/u with dermatolog ist, again discussed, Screening mammography 24 883278 Z12.31 Screening for osteoporosis 723710312 Z13.820 Pain of ri ght knee joint 1038933477 38205 M25.375 [id number] Chanda Durham MD [facility] [address] [place] [address] 04/29/2024 09:35:36 04/29/2024 10:08:21 Essential hypertension 66601776 I10 under control Diabetes mellitus 498482 09 E11.9 diet controlled , under control Hyperlipidemia 31922778 E78.5 under control Asthma 957634369 J45.90 9 under control Gastroesop hageal reflux disease 525074773 K21.9 under control Gout 69095318 M10.9 stable Allergic rhinitis 275618 04 J30.9 ot Kidney disease 89001531 N08 GFR 35 Overactive urinary bladder 088213355 N32.81 pads Osteopenia 156861780 M85 .80 on ot Adult [facility] th examination 758578360 Z00.00 Colonoscop y- had it in the past, due but does not want any moreDexa- 11/2021, getting in 09/10Mammog [place]- 11/27/22, getting in 09/10Has had pneumovax and prevnarFLU - 11/2023 ([facility])Covid - had all 3 Obesity 967494087 E66.9 advised to lose weight Chronic depression 09685 0009 F34.1 stable Malignant neoplasm of skin 834372861 C44.90 needs f/u with dermatolog ist, again discussed, willing Pain of ri ght knee joint 9203851180 94765 M25.242 [id number] Jil Salazar MD S_[address] [place] [address] 05/24/2024 10:32:46 05/24/2024 11:30:19 Pain of right knee joint 4367662614 04842 M25.561 Osteoarthr itis of right knee joint 8502880263 04347 M17.11 [id number] Jil Salazar MD [facility], [place] [address] 07/26/2024 11:32:40 07/26/2024 12:33:26 Pain of right knee region 2787882919 79468 M25.561 33890579 [id number] Chanda Durham MD [facility] [address] [place] [address] 09/16/2024 09:56:04 09/16/2024 10:46:14 Essential hypertension 81355142 I10 under control Diabetes mellitus 960683 09 E11.9 diet controlled , Hyperlipidemia 58462832 E78.5 under control, labs 03/13 Asthma 933443636 J45.90 9 under control Gastroesop hageal reflux disease 834639224 K21.9 under control Gout 45491494 M10.9 stable Allergic rhinitis 041338 04 J30.9 otc Kidney disease 94735393 N08 GFR 35 and stable Overactive urinary bladder 843990380 N32.81 pads Osteopenia 101004499 M85 .80 on otc, dexa 09/10 Obesity 224077096 E66.9 advised to lose weight Chronic depression 47383 0009 F34.1 stable Malignant neoplasm of skin 915187049 C44.90 needs f/u with dermatolog ist, Adult heal th examination 048298978 Z00.00 Colonoscop y- had it in the past, due but does not want any moreDexa- 09/10Mammog perla- 11/27/22, getting in 09/10Has had pneumovax and prevnarFLU - 11/2023 ([facility])Covid - had all 3 Pain of ri ght knee joint 1787476786 98611 M25.561 s/p shots from ortho [id number] Jil Salazar MD [facility] [address] [place] [address] 10/06/2024 11:08:39 10/06/2024 11:33:05 Pain of right knee joint 9727768769 23310 M25.809 [id number] Jil Salazar MD [facility] [address] [place] [address] 11/10/2024 11:03:21 11/10/2024 11:40:45 Pain of right knee joint 2597360410 05263 M25.532 [id number] Jil Salazar MD [facility]_[address] [place] [address] 12/27/2024 12:04:40 12/27/2024 12:28:46 Osteoarthritis of right knee joint 2138445467 92592 M17.11 81363527 Health Concerns Section Related Observation LastModified by Organization Detai ls LastModified Time None Recorded Concern Status LastModified by Organization Details LastModified Time None Recorded Advance Directives Directive N: Payers Insurance Date Sequence Insurance Name Policy Number Policy Leonard Covered Member ID Leonard Member ID Guarantor Name 12/24/[address] [facility] (MEDICARE REPLACEMENT/A DVANTAGE - HMO) [id number] Conchis Serrano [id number] Conchis Serrano Notes Date Note Type Note Provider Name and Address Organization Details Recorded Time 09/16/2024 text/html Doing fine, compliant to medications, no side affects, here for follow up.PT IS FASTING ( [facility] ) Asthma- under control with inhalers, no coughMeds- Symbicort 2 puffs bid, Proair prnHTN- under control with medsMeds- Losartan 100 mg qd, Amlodipine 5 mg dailyDiabetes- diet [id number] 6.5 recently at nephrology, watching diet, lost some weightnot on any medsLast eye exam-2024, Claribel Fierro Hyperlipidemia- under control, labs good 03/13Meds- Rosuvastatin 10 mg qdDepression- under control with meds, sleeps fine, no anxiety symptoms, mood is stableMeds- Paroxetine 20 mg qdGERD - better with medsMeds- Esomeprazole prnGout- no flare up,Meds- Allopurinol 300 mg daily , has not takenKidney disease--GFR 35, was 50, Dr. Godwin Right knee pain- arthritis seen on x ray, getting worseSeen Dr. Aguirre and has had shotsObesity- trying to control diet, Has not lost any wtOveractive bladder- using pads, meds did not help in the past,Osteopenia- dexa 12/08H/o skin cancer- need to get f/u with derm, again discussed, willing to see in fallTinnitus- off and on no pain, no hearing loss Chanda Durham MD [address] [facility], [facility] [address], [place], [address], [place] 09/16/2024 10:44:50 OBGyn Episode No OBEpisode recorded.
--- OUTSIDE RECORDS SUMMARY | 2024-12-29 10:46 | XMS_ITS | Encounter Summary ---
Author Organization [facility] Address [address] [place] [address] Care Team Providers Care Pharmacognosy Teacher Name Role Phone Humble Han MD Primary Care Provider [phone] Encounter Details Date Type Department Care Team (Late st Contact Info) Description 04/21/2001 Outpatient Historical [facility] Primary Care - [place] [address] [place] [address] David Edgar, NO ADDRESS ON FILE Social History Tobacco Use Types Packs/Day Years Used Date Smoking Tobacco: Never Assessed Comments Unknown Sex and Gender Information Value Date Recorded Sex Assigned at Not on file Legal 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
--- OUTSIDE RECORDS SUMMARY | 2024-12-29 10:46 | XMS_ITS | Encounter Summary ---
Author Organization [facility] Address 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
--- OUTSIDE RECORDS SUMMARY | 2024-12-29 10:46 | XMS_ITS | Encounter Summary ---
Author Organization [facility] Address [address] [place] [address] Care Team Providers Care Hand Tube Bender Name Role Phone Humble Han MD Primary Care Provider [phone] Encounter Details Date Type Department Care Team (Late st Contact Info) Description 01/11/2002 Outpatient Historical [facility] Primary Care - [place] [address] [place] [address] David Edgar, NO ADDRESS ON FILE Social History Tobacco Use Types Packs/Day Years Used Date Smoking Tobacco: Never Assessed Comments Unknown Sex and Gender Information Value Date Recorded Sex Assigned at Not on file 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
--- OUTSIDE RECORDS SUMMARY | 2024-12-29 10:46 | XMS_ITS | Encounter Summary ---
Author Organization [facility] Address 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
--- OUTSIDE RECORDS SUMMARY | 2024-12-29 10:46 | XMS_ITS | Encounter Summary ---
Author Organization [facility] Address [address] [place] [address] Care Team Providers Care Storeroom Attendant Name Role Phone Humble Han MD Primary Care Provider [phone] Encounter Details Date Type Department Care Team (Late st Contact Info) Description 09/24/2000 Outpatient Historical [facility] Primary Care - [place] [address] [place] [address] David Edgar, NO ADDRESS ON FILE Social History Tobacco Use Types Packs/Day Years Used Date Smoking Tobacco: Never Assessed Comments Unknown Sex and Gender Information Value Date Recorded Sex Assigned at Not on file 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
--- OUTSIDE RECORDS SUMMARY | 2024-12-29 10:46 | XMS_ITS | Encounter Summary ---
Author Organization [facility] Address [address] [place] [address] Care Team Providers Care Trust Vault Custodian Name Role Phone Humble Han MD Primary Care Provider [phone] Encounter Details Date Type Department Care Team (Late st Contact Info) Description 01/28/2002 Outpatient [facility] Primary Care - [place] [address] [place] [address] David Edgar, NO ADDRESS ON FILE Social History Tobacco Use Types Packs/Day Years Used Date Smoking Tobacco: Never Assessed Comments Unknown Sex and Gender Information Value Date Recorded Sex Assigned at Not on file Legal Sex Female 3:41 AM ACCOUNT SUPPORT REP Gender Identity Not on file Sexual Orientation Not on file documented as of this encounter Plan of Treatment Not on file documented as of this encounter Visit Diagnoses Not on filedocumented in this encounter Care Teams Trust Vault Custodian Relationship Specialty Start Date End Date Humble Han MD [address] [place] [address] PCP - General Family Practice 02/26/12 documented as of this encounter
--- OUTSIDE RECORDS SUMMARY | 2024-12-29 10:46 | XMS_ITS | Encounter Summary ---
Author Organization [facility] Address 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
--- OUTSIDE RECORDS SUMMARY | 2024-12-29 10:46 | XMS_ITS | Encounter Summary ---
Author Organization [facility] Address 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
--- OUTSIDE RECORDS SUMMARY | 2024-12-29 10:46 | XMS_ITS | Encounter Summary ---
Author Organization [facility] Address [address] [place] [address] Care Team Providers Care Transportation Services Representative Name Role Phone Humble Han MD Primary Care Provider [phone] Encounter Details Date Type Department Care Team (Late st Contact Info) Description 10/02/2000 Outpatient Historical [facility] Primary Care - [place] [address] [place] [address] David Edgar, NO ADDRESS ON FILE Social History Tobacco Use Types Packs/Day Years Used Date Smoking Tobacco: Never Assessed Comments Unknown Sex and Gender Information Value Date Recorded Sex Assigned at Not on file 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
--- OUTSIDE RECORDS SUMMARY | 2024-12-29 10:46 | XMS_ITS | Encounter Summary ---
Author Organization [facility] Address [address] [place] [address] Care Team Providers Care Net Finisher Name Role Phone Humble Han MD Primary Care Provider [phone] Encounter Details Date Type Department Care Team (Late st Contact Info) Description 05/06/2001 Outpatient Historical [facility] Primary Care - [place] [address] [place] [address] David Edgar, NO ADDRESS ON FILE Social History Tobacco Use Types Packs/Day Years Used Date Smoking Tobacco: Never Assessed Comments Unknown Sex and Gender Information Value Date Recorded Sex Assigned at Not on file 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
--- OUTSIDE RECORDS SUMMARY | 2024-12-29 10:46 | XMS_ITS | Encounter Summary ---
Author Organization [facility] Address [address] [place] [address] Care Team Providers Care Air Export Operations Agent Name Role Phone Humble Han MD Primary Care Provider [phone] Encounter Details Date Type Department Care Team (Late st Contact Info) Description 03/30/2003 Outpatient Historical [facility] Primary Care - [place] [address] [place] [address] Audra Burgos MD NO ADDRESS ON FILE Social History Tobacco Use Types Packs/Day Years Used Date Smoking Tobacco: Never Assessed Comments Unknown Sex and Gender Information Value Date Recorded Sex Assigned at Not on file 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
--- OUTSIDE RECORDS SUMMARY | 2024-12-29 10:46 | XMS_ITS | Encounter Summary ---
Author Organization [facility] Address 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
--- OUTSIDE RECORDS SUMMARY | 2024-12-29 10:46 | XMS_ITS | Encounter Summary ---
Author Organization [facility] Address [address] [place] [address] Care Team Providers Care Vice President Process Name Role Phone Humble Han MD Primary Care Provider [phone] Encounter Details Date Type Department Care Team (Late st Contact Info) Description 09/16/2001 Outpatient Historical [facility] Primary Care - [place] [address] [place] [address] David Edgar, NO ADDRESS ON FILE Social History Tobacco Use Types Packs/Day Years Used Date Smoking Tobacco: Never Assessed Comments Unknown Sex and Gender Information Value Date Recorded Sex Assigned at Not on file 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
--- OUTSIDE RECORDS SUMMARY | 2024-12-29 10:46 | XMS_ITS | Encounter Summary ---
Author Organization [facility] Address [address] [place] [address] Care Team Providers Care Spring Production Supervisor Name Role Phone Humble Han MD Primary Care Provider [phone] Encounter Details Date Type Department Care Team (Late st Contact Info) Description 11/29/2002 Outpatient Historical [facility] Primary Care - [place] [address] [place] [address] David Edgar, NO ADDRESS ON FILE Social History Tobacco Use Types Packs/Day Years Used Date Smoking Tobacco: Never Assessed Comments Unknown Sex and Gender Information Value Date Recorded Sex Assigned at Not on file 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
--- OUTSIDE RECORDS SUMMARY | 2024-12-29 10:46 | XMS_ITS | Encounter Summary ---
Author Organization [facility] Address [address] [place] [address] Care Team Providers Care C Developer Name Role Phone Humble Han MD Primary Care Provider [phone] Encounter Details Date Type Department Care Team (Late st Contact Info) Description 05/13/2001 Outpatient Historical [facility] Primary Care - [place] [address] [place] [address] David Edgar, NO ADDRESS ON FILE Social History Tobacco Use Types Packs/Day Years Used Date Smoking Tobacco: Never Assessed Comments Unknown Sex and Gender Information Value Date Recorded Sex Assigned at Not on file 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
--- OUTSIDE RECORDS SUMMARY | 2024-12-29 10:46 | XMS_ITS | Encounter Summary ---
Author Organization [facility] Address [address] [place] [address] Care Team Providers Care Inspector General Name Role Phone Humble Han MD Primary Care Provider [phone] Encounter Details Date Type Department Care Team (Late st Contact Info) Description 10/30/2004 Outpatient Historical [facility] Primary Care - [place] 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 [place] [address] PCP - General Family Practice 02/26/12 documented as of this encounter
[2024-12-29 11:13] LABS: Total Protein Urine Random 596 mg/dL; Ur Ttl Prot Creatinine Ratio 5.34 mg/mg (0-0.20)
[2024-12-29 14:15] LABS: Hemoglobin A1C 5.9 % (<5.7)
== END 2024-12-29 09:48 | disposition home or self-care (01) ==
LOC: ANHLAB 09:48
PROVIDERS: Internal Medicine Nephrology; PCP Internal Medicine; Visit Provider Internal Medicine
DX: Z13.1 Encounter for screening for diabetes mellitus (principal); R82.90 Unspecified abnormal findings in urine; R80.8 Other proteinuria; I71.5 Thoracoabdominal aortic aneurysm, ruptured
CPT/HCPCS: 36415; 80069; 81001; 82306; 82570; 83036; 83970; 84156; 84550; 85025